=== PATIENT | male | born 1930 | race Caucasian/White ===

== ENCOUNTER 2019-03-29 00:29 | Inpatient (IN) | payer OTHER ==
--- NOTE | 2019-03-29 00:35 | PDOC ---
History of Present Illness - General Chief Complaint: Urinary Problem Stated Complaint: URINARY EVALUATION/PLACEMENT OF DOYLE Time Seen by Provider: 03/29/19 00:31 - History of Present Illness Initial Comments: 03/29/19 01:20 This 89-year-old man with a history of DM, GERD, BPH, A. fib,s/p CVA sent by ambulance from [facility] for apparent urinary retention. Patient speaks mainly Gambian and is a poor historian. The patient appeared to endorse that he has abdominal pain but cannot provide any other history. 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 After hospitalization at [facility], patient was a resident of the [facility] until of this year when he was transferred back to [facility] with a urinary tract infection. The patient was found to have a kidney stone as well as UTI . He was treated there until 3 days ago when he was transferred to [facility] for care of decubitus wounds of his lower back. Medications as noted below Allergy: Penicillin (reportedly GI intolerance) Non-smoker/no daily alcohol use history Attending: Dr. Masterson Past History - Past Medical History Allergies/Adverse Reactions: Allergies Allergy/AdvReac Type Severity Reaction Status Date / Time Penicillins Allergy Mild Nausea Verified 03/29/19 14:13 Home Medications: Ambulatory Orders Acetaminophen [Tylenol .Extra-Strength -] 2 tab PO Q8H 03/29/19 Apixaban [Eliquis] 5 mg PO BID 03/29/19 Ascorbic Acid [Vitamin C] 250 mg PO DAILY 03/29/19 Digoxin [Lanoxin -] 0.125 mg PO DAILY 03/29/19 Famotidine [Pepcid] 20 mg PO DAILY 03/29/19 Insulin (LOG) Aspart [NovoLOG -] 0 units SQ TID 03/29/19 Metoprolol Succinate 25 mg PO DAILY 03/29/19 Tamsulosin HCl [Flomax] 0.4 mg PO DAILY 03/29/19 Anemia: No Asthma: No Cancer: No Cardiac Disorders: Yes (IRREGULAR HEARTBEAT) CVA: No COPD: No CHF: No (STRESS TEST 2011) Dementia: Yes Diabetes: No GI Disorders: Yes (GERD RECTAL BLEEDING) Disorders: Yes (BPH) HTN: Yes Hypercholesterolemia: No Liver Disease: No Seizures: No Thyroid Disease: No - Surgical History Abdominal Surgery: No Appendectomy: No Cardiac Surgery: No Cholecystectomy: No Lung Surgery: No Neurologic Surgery: Yes (PLATE PLACED ON RIGHT SIDE OF HEAD AFTER HEAD TRAUMA) Orthopedic Surgery: Yes (LEFT KNEE REPLACMENT 2010) - Psycho Social/Smoking Cessation Hx Smoking History: Never smoked Have you smoked in the past 12 months: No Hx Alcohol Use: Yes (RARE) Drug/Substance Use Hx: No Substance Use Type: Alcohol Hx Substance Use Treatment: No Review of Systems - Review of Systems Able to Perform ROS?: Yes Comments:: 12 point review of systems is negative except for what is noted in the history of present illness *Physical Exam - Physical Exam GENERAL: Elderly man, responsive, speaking mainly Gambian; appears moderately agitated HEAD: Normal with no signs of trauma. EYES: PERRLA, EOMI, sclera anicteric, conjunctiva clear. ENT: Ears normal, nares patent, oropharynx clear without exudates. Dry mucous membranes. NECK: Normal range of motion, supple without lymphadenopathy, JVD, or masses. LUNGS: Breath sounds equal, clear to auscultation bilaterally. No wheezes, and no crackles. HEART: Irregularly irregular rhythm; no murmurs/rubs/extra sounds appreciated ABDOMEN:. Hypoactive bowel sounds; lower abdominal distention with moderate tenderness EXTREMITIES: Normal range of motion, no edema. No clubbing or cyanosis. No erythema, or tenderness. NEUROLOGICAL: Cranial nerves II through XII grossly intact. decreased spontaneous movement of left arm and left leg. Gait not tested SKIN: Dressing intact over midline sacral wound (not examined) Twelve-lead electrocardiogram is performed: Atrial fibrillation 84 bpm; no acute ST or T wave abnormality seen. [place] is normal. ED Treatment Course - LABORATORY CBC & Chemistry Diagram: 03/30/19 07:25 03/30/19 07:25 Medical Decision Making - Medical Decision Making 03/29/19 02:05 Because of the patient's lower abdominal distention and tenderness, urinary catheter placed by nursing staff under sterile conditions. Approximately 1100 mL of cloudy noé urine obtained and sample sent for urinalysis/urinary culture Reexamination of the patient after placement of the urinary catheter and drainage of retained urine reveals persistent generalized moderate tenderness without rebound or involuntary guarding. Soon after placement of the urinary catheter and drainage of initial urine, subsequent urinary drainage appeared feculent. Because of the patient's persistent abdominal tenderness and apparent feculent urine, CBC, chemistry profile, blood culture and lactic acid level sent. Abdominal/pelvic CT planned Laboratory evaluation notable for white blood cell count of 15,300; INR 2.11; BUN 36/creatinine 2.9; lactic acid 2.9. Urinalysis positive for 1+LE, 62 WBC/ 12 RBCs/301 bacteria on microscopic analysis Noncontrast abdominal/pelvic CT ordered 03/29/19 04:12 Abdominal/pelvic CT without contrast Preliminary interpretation by Imaging on Callmild right hydronephrosis with 2 mm UVJ stone;multiple bladder stones; multiple bilateral parenchymal renal stones and mild bilateral renal scarring; moderate prostate enlargement Levaquin 500 mg IV started Because of patient's urinary tract infection and presence of right UVJ stone, patient requires admission for parenteral antibiotic treatment of complicated UTI and urologic consultation. 's patients are admitted by [facility]. 03/29/19 04:54 Case discussed with , admitting physician for [facility] service. Patient will be admitted to [facility] here at [facility]. Consultation for urology and infectious disease will be called Discharge - Discharge Information Problems reviewed: Yes Clinical Impression/Diagnosis: Complicated UTI (urinary tract infection) Condition: Guarded - Admission Yes - Follow up/Referral - Patient Discharge Instructions - Post Discharge Activity
[2019-03-29] MEDS ORDERED: ACETAMINOPHEN 1000 MG/100 ML VIAL (NON FORMULARY) IVPB ONE (01:24)
[2019-03-29] MEDS ORDERED: ACETAMINOPHEN INJECTION 100 ML IVPB ONE (01:26)
[2019-03-29 01:32] VITALS: BMI 21.9
[2019-03-29] MEDS ORDERED: SODIUM CHLORIDE 500 ML IV STA ×2 (01:59→04:20)
[2019-03-29 02:09] LABS: EPI CELLS 0.4 /HPF (0-5/HPF); HYALINE CASTS 9 /lpf (0-8); URINE APPEARANCE TURBID; URINE BACTERIA 301.5 /hpf (NEGATIVE); URINE BILIRUBIN NEGATIVE (NEGATIVE); URINE COLOR YELLOW; URINE GLUCOSE (UA) NEGATIVE (NEGATIVE); URINE KETONE NEGATIVE (NEGATIVE); URINE LEUK ESTERASE 1+ (NEGATIVE); URINE NITRITE NEGATIVE (NEGATIVE); URINE PROTEIN 1+ (NEGATIVE); URINE UROBILINOGEN 0.2 mg/dL (0.2-1.0); URINE WBC 62 /hpf (0-5)
[2019-03-29 02:11] LABS: URINE RBC 12.1 /hpf (0-4)
[2019-03-29 02:36] LABS: BASO % 0.4 % (0-2.0); EOS % 0.1 % (0-4.5); HEMATOCRIT 36.1 % (35.4-49); LYMPH % 5.2 % (8-40); MCH 31.3 pg (25.7-33.7); MCHC 33.2 g/dl (32.0-35.9); MEAN CELL VOLUME 94.3 fl (80-96); MEAN PLT VOLUME 9.7 fl (7.5-11.1); MONO % 6.7 % (3.8-10.2); NEUT % 87.6 % (42.8-82.8); PLATELET COUNT 314 K/MM3 (134-434); RBC 3.83 M/mm3 (4.00-5.60); RDW 15.3 % (11.9-15.9); WHITE BLOOD COUNT 15.3 K/mm3 (4.0-10.0)
[2019-03-29 02:54] LABS: ALBUMIN 2.8 g/dl (3.4-5.0); ALK PHOS 92 U/L (45-117); ANION GAP 11 MMOL/L (8-16); BILIRUBIN,TOTAL 0.9 mg/dL (0.2-1); BLOOD UREA NITROGEN 36.2 mg/dL (7-18); CALCIUM 9.6 mg/dL (8.5-10.1); CHLORIDE 101 mmol/L (98-107); CO2 26 mmol/L (21-32); CREATININE 2.9 mg/dL (0.55-1.3); GLUCOSE,RANDOM 130 mg/dL (74-106); POTASSIUM 4.4 mmol/L (3.5-5.1); SGOT/AST 36 U/L (15-37); SGPT/ALT 52 U/L (13-61); SODIUM 137 mmol/L (136-145); TOT PROT 7.3 g/dl (6.4-8.2)
[2019-03-29 02:59] LABS: INR 2.11 (0.83-1.09); PROTHROMBIN TIME (PATIENT) 25.1 SEC (9.7-13.0)
[2019-03-29 03:04] LABS: YEAST Several seen (NEGATIVE)
[2019-03-29] MEDS ORDERED: DIGOXIN 0.125 MG TABLET (FP) PO ONE (04:59)
[2019-03-29] MEDS ORDERED: TAMSULOSIN HCL 0.4 MG CAP PO ONE ×2 (05:01→15:20)
[2019-03-29] MEDS: SODIUM CHLORIDE 1,000 ML IV SCH (05:01)
[2019-03-29] MEDS ORDERED: INSULIN SLIDING SCALE (NOVOLOG) 1 VIAL SQ SCH ×2 (07:00→14:41)
[2019-03-29 07:57] LABS: ALBUMIN 2.2 g/dl (3.4-5.0); BILIRUBIN,TOTAL 0.8 mg/dL (0.2-1); BLOOD UREA NITROGEN 36.1 mg/dL (7-18); CREATININE 2.7 mg/dL (0.55-1.3); TOT PROT 5.9 g/dl (6.4-8.2)
[2019-03-29] MEDS ORDERED: MEROPENEM 1 GM in DEXTROSE 5%-WATER 100 ML IVPB ONE (08:00)
--- NOTE | 2019-03-29 08:48 | HP ---
CHIEF COMPLAINT: Urinary Retention HISTORY OF PRESENT ILLNESS: This 89-year-old man with a history of Demetia, DMII, GERD, BPH, A.fib, s/p CVA sent by ambulance from [facility] for apparent urinary retention. Patient speaks mainly Macanese and is a poor historian. The patient appeared to endorse that he has abdominal pain but cannot provide any other history. Patient's daughter, Waqas Mcneil stated that the patient had a CVA on August 13, 2018 3 weeks after his girlfriend of 13 years , with subsequent left hemiparesis. After an 8 week hospitalization at [facility], patient was a resident of the [facility] until of this year when he was transferred back to [facility] for a 2 week stay with a bladder infection with a kidney stone. He was then sent to [facility] for PT and wound care of decubitus wounds of his lower back. He was treated there for 4 days until his presentation to [place]. Daughter also states he has lost approx 45lbs since his CVA. H&P information obtained from chart and Waqas Mcneil (Daughter). ER course was notable for: (1) Urinary Retention-Toure Placed Approximately 1100 mL of cloudy noé urine obtained and sample sent for urinalysis/ urinary culture (2)Abdominal/pelvic CT without contrast [facility] with 2 mm UVJ stone;multiple bladder stones; multiple bilateral parenchymal renal stones and mild bilateral renal scarring; moderate prostate enlargement (3)Levaquin 500 mg IV started Recent Travel: Denies Patient usually would go to [place] to attend to his [employer] every year before CVA PAST MEDICAL HISTORY: Dementia CVA 08/13/18 DMII AFib PAST SURGICAL HISTORY: Unknown Social History: Smoking: Never Alcohol: Denies Drugs: Denies -Lives in his own home with a 24 hour aid next door to his brother. 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 - 24 years ago -Has 1 son, 2 daughters, and 9 grandchildren who are active in his care Allergies Penicillins Adverse Reaction (Mild, Verified 03/29/19 00:49) Nausea HOME MEDICATIONS: Home Medications Medication Instructions Recorded Acetaminophen [Tylenol 2 tab PO Q8H 03/29/19 .Extra-Strength -] Apixaban [Eliquis] 5 mg PO BID 03/29/19 Ascorbic Acid [Vitamin C] 250 mg PO DAILY 03/29/19 Digoxin [Lanoxin -] 0.125 mg PO DAILY 03/29/19 Famotidine [Pepcid] 20 mg PO DAILY 03/29/19 Insulin (LOG) Aspart [NovoLOG -] 0 units SQ TID 03/29/19 Metoprolol Succinate 25 mg PO DAILY 03/29/19 Tamsulosin HCl [Flomax] 0.4 mg PO DAILY 03/29/19 REVIEW OF SYSTEMS Unable to assess. Patient is verbal but when the language was used the quality tech stated he was slurring and was not making any since and she could not understand him. Patient appears to show no signs of distress. PHYSICAL EXAMINATION Vital Signs - 24 hr 03/29/19 03/29/19 03/29/19 01:06 04:15 04:41 Temperature 100 F H 98.5 F Pulse Rate 95 H Pulse Rate [ 84 Left] Respiratory 20 20 Rate Blood Pressure 131/82 Blood Pressure 94/55 L [Left] O2 Sat by Pulse 99 100 Oximetry (%) GENERAL: Elderly man, responsive, speaking mainly Macanese; appears moderately agitated HEAD: Normal with no signs of trauma. EYES: PERRLA, EOMI, sclera anicteric, conjunctiva clear. ENT: Ears normal, nares patent, oropharynx clear without exudates. Dry mucous membranes. NECK: Normal range of motion, supple without lymphadenopathy, JVD, or masses. LUNGS: Breath sounds equal, clear to auscultation bilaterally. No wheezes, and no crackles. HEART: Irregularly irregular rhythm; no murmurs/rubs/extra sounds appreciated ABDOMEN:. Hypoactive bowel sounds; lower abdominal distention with moderate tenderness EXTREMITIES: Normal range of motion, no edema. No clubbing or cyanosis. No erythema, or tenderness. NEUROLOGICAL: Cranial nerves II through XII grossly intact. decreased spontaneous movement of left arm and left leg. Gait not tested SKIN: Dressing intact over midline sacral wound (stage II) Laboratory Results - last 24 hr 03/29/19 03/29/19 03/29/19 01:35 01:35 01:35 WBC 15.3 H RBC 3.83 L Hgb 12.0 Hct 36.1 MCV 94.3 MCH 31.3 MCHC 33.2 RDW 15.3 Plt Count 314 MPV 9.7 Absolute Neuts (auto) 13.4 H Neutrophils % 87.6 H Lymphocytes % 5.2 L Monocytes % 6.7 Eosinophils % 0.1 Basophils % 0.4 Nucleated RBC % 0 PT with INR INR Sodium 137 Potassium 4.4 Chloride 101 Carbon Dioxide 26 Anion Gap 11 BUN 36.2 H Creatinine 2.9 H Est GFR (CKD-EPI)AfAm 21.55 Est GFR (CKD-EPI)NonAf 18.60 Random Glucose 130 H Lactic Acid Calcium 9.6 Phosphorus Total Bilirubin 0.9 AST 36 ALT 52 Alkaline Phosphatase 92 Creatine Kinase 17 L Troponin I < 0.02 Total Protein 7.3 Albumin 2.8 L Urine Color Yellow Urine Appearance Turbid Urine pH 6.0 Ur Specific [place] 1.011 Urine Protein 1+ H Urine Glucose (UA) Negative Urine Ketones Negative Urine Blood 3+ H Urine Nitrite Negative Urine Bilirubin Negative Urine Urobilinogen 0.2 Ur Leukocyte Esterase 1+ H Urine WBC (Auto) 62 Urine RBC (Auto) 12.1 Urine Casts (Auto) 9 U Epithel Cells (Auto) 0.4 Urine Bacteria (Auto) 301.5 Urine Yeast (Auto) Several seen 03/29/19 03/29/19 03/29/19 01:35 01:35 04:45 WBC RBC Hgb Hct MCV MCH MCHC RDW Plt Count MPV Absolute Neuts (auto) Neutrophils % Lymphocytes % Monocytes % Eosinophils % Basophils % Nucleated RBC % PT with INR 25.10 H INR 2.11 H Sodium Potassium Chloride Carbon Dioxide Anion Gap BUN Creatinine Est GFR (CKD-EPI)AfAm Est GFR (CKD-EPI)NonAf Random Glucose Lactic Acid 2.9 H* 1.2 Calcium Phosphorus Total Bilirubin AST ALT Alkaline Phosphatase Creatine Kinase Troponin I Total Protein Albumin Urine Color Urine Appearance Urine pH Ur Specific [place] Urine Protein Urine Glucose (UA) Urine Ketones Urine Blood Urine Nitrite Urine Bilirubin Urine Urobilinogen Ur Leukocyte Esterase Urine WBC (Auto) Urine RBC (Auto) Urine Casts (Auto) U Epithel Cells (Auto) Urine Bacteria (Auto) Urine Yeast (Auto) 03/29/19 06:00 WBC RBC Hgb Hct MCV MCH MCHC RDW Plt Count MPV Absolute Neuts (auto) Neutrophils % Lymphocytes % Monocytes % Eosinophils % Basophils % Nucleated RBC % PT with INR INR Sodium 138 Potassium 4.0 Chloride 103 Carbon Dioxide 27 Anion Gap 8 BUN 36.1 H Creatinine 2.7 H Est GFR (CKD-EPI)AfAm 23.50 Est GFR (CKD-EPI)NonAf 20.28 Random Glucose 123 H Lactic Acid Calcium 9.0 Phosphorus 4.0 Total Bilirubin 0.8 AST 34 ALT 43 Alkaline Phosphatase 75 Creatine Kinase Troponin I Total Protein 5.9 L Albumin 2.2 L Urine Color Urine Appearance Urine pH Ur Specific [place] Urine Protein Urine Glucose (UA) Urine Ketones Urine Blood Urine Nitrite Urine Bilirubin Urine Urobilinogen Ur Leukocyte Esterase Urine WBC (Auto) Urine RBC (Auto) Urine Casts (Auto) U Epithel Cells (Auto) Urine Bacteria (Auto) Urine Yeast (Auto) ASSESSMENT/PLAN: This 89-year-old man with a history of Demetia, DMII, GERD, BPH, A.fib, s/p CVA sent by ambulance from [facility] for apparent urinary retention and a UTI. UTI/Urinary Retention --Toure Placed --UA/UC- Pending --CXR-No acute pathology --Blood Culture-pending --Meropenem to treat empirically while awaiting Urine Culture --ID Following --Urology consulted --will monitor renal function BUN/CRE 36.1/2.7 Afib --cont hm dose Elliqis 2.5mg PO BID; Metoprolol Tartrate 12.5mg PO BID; Digoxin 0.125mg PO Daily Dementia --Not currently on any medication. 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 Full COde Visit type - Emergency Visit Emergency Visit: Yes ED Registration Date: 03/29/19 Care time: The patient presented to the Emergency Department on the above date and was hospitalized for further evaluation of their emergent condition. - New Patient This patient is new to me today: Yes Date on this admission: 04/03/19 - Critical Care Critical Care patient: No
[2019-03-29] MEDS ORDERED: DEXTROSE 5%-WATER 100 ML IVPB ONE ×2 (09:28→20:09)
[2019-03-29] MEDS ORDERED: MEROPENEM 1 GM VIAL (RESTRICTED TO ID) IVPB ONE (09:28)
[2019-03-29] MEDS: FAMOTIDINE 20 MG TABLET PO SCH (09:53)
[2019-03-29] MEDS ORDERED: APIXABAN 2.5 MG TABLET PO SCH (10:00)
[2019-03-29 10:22] LABS: MCHC 33.8 g/dl (32.0-35.9)
[2019-03-29 10:25] LABS: BASO % 0.4 % (0-2.0); EOS % 1.2 % (0-4.5); HEMATOCRIT 31.8 % (35.4-49); HEMOGLOBIN 10.7 GM/dl (11.7-16.9); LYMPH % 6.6 % (8-40); MCH 31.7 pg (25.7-33.7); MEAN CELL VOLUME 93.9 fl (80-96); MEAN PLT VOLUME 9.6 fl (7.5-11.1); MONO % 5.5 % (3.8-10.2); NEUT % 86.3 % (42.8-82.8); PLATELET COUNT 230 K/MM3 (134-434); RBC 3.39 M/mm3 (4.00-5.60); RDW 14.6 % (11.9-15.9); WHITE BLOOD COUNT 10.4 K/mm3 (4.0-10.8)
--- NOTE | 2019-03-29 12:55 | CON.ID ---
Consult - History of Present Illness History of Present Illness: 89 y.o. male with PMH of BPH, CVA with Lt hemiparesis, GERD, BPH, AFIB, and Sacral DU transferred from [place] to the ER for urinary retention and abdominal pain. He alert, weak and noted to have low grade fever of 100F and leukocytosis (wbc 15.3K), elevated lactic acid and with VIKKI. Morin catheter was inserted with urine output of 1100 cc. Reported to have had a recent UTI treated at the hospital until he was discharged to [facility]. Pt himself is not a reliable source of history. He is weak although alert, mainly Brazilian-speaking, and reported to be more confused (baseline mental status unclear). U/A was indicative of UTI and patient has been started on antibiotics. Currently he is alert but not answering all questions. No distress noted. 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 Cardio/Vascular: Yes: AFIB Gastrointestinal: Yes: GERD Renal/: Yes: BPH Endocrine: Yes: Diabetes Mellitus - Alcohol/Substance Use Hx Alcohol Use: Yes (RARE) - Smoking History Smoking history: Never smoked Have you smoked in the past 12 months: No Home Medications - Allergies Allergies/Adverse Reactions: Allergies Allergy/AdvReac Type Severity Reaction Status Date / Time Penicillins AdvReac Mild Nausea Verified 03/29/19 00:49 - Home Medications Home Medications: Ambulatory Orders Acetaminophen [Tylenol .Extra-Strength -] 2 tab PO Q8H 03/29/19 Apixaban [Eliquis] 5 mg PO BID 03/29/19 Ascorbic Acid [Vitamin C] 250 mg PO DAILY 03/29/19 Digoxin [Lanoxin -] 0.125 mg PO DAILY 03/29/19 Famotidine [Pepcid] 20 mg PO DAILY 03/29/19 Insulin (LOG) Aspart [NovoLOG -] 0 units SQ TID 03/29/19 Metoprolol Succinate 25 mg PO DAILY 03/29/19 Tamsulosin HCl [Flomax] 0.4 mg PO DAILY 03/29/19 Review of Systems Unable to obtain ROS, reason: Pt weak, not answering qu Physical Exam Vital Signs: Vital Signs Temperature 98.2 F 03/29/19 07:55 Pulse Rate 111 H 03/29/19 07:55 Respiratory Rate 03/29/19 07:55 Blood Pressure 101/67 03/29/19 07:55 O2 Sat by Pulse Oximetry (%) 98 03/29/19 09:00 Constitutional: Yes: No Distress, Calm Eyes: Yes: Conjunctiva Clear HENT: Yes: Atraumatic Neck: Yes: Supple Cardiovascular: Yes: Pulse Irregular Respiratory: Yes: CTA Bilaterally Gastrointestinal: Yes: Normal Bowel Sounds, Soft Renal/: Yes: Morin Present (dark, cloudy urine) Musculoskeletal: Yes: WNL Extremities: Yes: WNL Edema: No Integumentary: Yes: Pressure Ulcer (Stage II-III DU without drainage/fluctuance) Neurological: Yes: Alert, Weakness Labs: CBC, BMP 03/29/19 10:18 03/29/19 06:00 Laboratory Tests 03/29/19 03/29/19 03/29/19 01:35 01:35 01:35 WBC 15.3 H RBC 3.83 L Hgb 12.0 Hct 36.1 MCV 94.3 MCH 31.3 MCHC 33.2 RDW 15.3 Plt Count 314 MPV 9.7 Absolute Neuts (auto) 13.4 H Neutrophils % 87.6 H Lymphocytes % 5.2 L Monocytes % 6.7 Eosinophils % 0.1 Basophils % 0.4 Nucleated RBC % 0 PT with INR INR Sodium 137 Potassium 4.4 Chloride 101 Carbon Dioxide 26 Anion Gap 11 BUN 36.2 H Creatinine 2.9 H Est GFR (CKD-EPI)AfAm 21.55 Est GFR (CKD-EPI)NonAf 18.60 POC Glucometer Random Glucose 130 H Lactic Acid Calcium 9.6 Phosphorus Total Bilirubin 0.9 AST 36 ALT 52 Alkaline Phosphatase 92 Creatine Kinase 17 L Troponin I < 0.02 Total Protein 7.3 Albumin 2.8 L Urine Color Yellow Urine Appearance Turbid Urine pH 6.0 Ur Specific [place] 1.011 Urine Protein 1+ H Urine Glucose (UA) Negative Urine Ketones Negative Urine Blood 3+ H Urine Nitrite Negative Urine Bilirubin Negative Urine Urobilinogen 0.2 Ur Leukocyte Esterase 1+ H Urine WBC (Auto) 62 Urine RBC (Auto) 12.1 Urine Casts (Auto) 9 U Epithel Cells (Auto) 0.4 Urine Bacteria (Auto) 301.5 Urine Yeast (Auto) Several seen 03/29/19 03/29/19 03/29/19 01:35 01:35 04:45 WBC RBC Hgb Hct MCV MCH MCHC RDW Plt Count MPV Absolute Neuts (auto) Neutrophils % Lymphocytes % Monocytes % Eosinophils % Basophils % Nucleated RBC % PT with INR 25.10 H INR 2.11 H Sodium Potassium Chloride Carbon Dioxide Anion Gap BUN Creatinine Est GFR (CKD-EPI)AfAm Est GFR (CKD-EPI)NonAf POC Glucometer Random Glucose Lactic Acid 2.9 H* 1.2 Calcium Phosphorus Total Bilirubin AST ALT Alkaline Phosphatase Creatine Kinase Troponin I Total Protein Albumin Urine Color Urine Appearance Urine pH Ur Specific [place] Urine Protein Urine Glucose (UA) Urine Ketones Urine Blood Urine Nitrite Urine Bilirubin Urine Urobilinogen Ur Leukocyte Esterase Urine WBC (Auto) Urine RBC (Auto) Urine Casts (Auto) U Epithel Cells (Auto) Urine Bacteria (Auto) Urine Yeast (Auto) 03/29/19 03/29/19 03/29/19 06:00 10:18 12:00 WBC 10.4 RBC 3.39 L Hgb 10.7 L Hct 31.8 L MCV 93.9 MCH 31.7 MCHC 33.8 RDW 14.6 Plt Count 230 MPV 9.6 Absolute Neuts (auto) 9.0 Neutrophils % 86.3 H Lymphocytes % 6.6 L Monocytes % 5.5 Eosinophils % 1.2 Basophils % 0.4 Nucleated RBC % PT with INR INR Sodium 138 Potassium 4.0 Chloride 103 Carbon Dioxide 27 Anion Gap 8 BUN 36.1 H Creatinine 2.7 H Est GFR (CKD-EPI)AfAm 23.50 Est GFR (CKD-EPI)NonAf 20.28 POC Glucometer 105 Random Glucose 123 H Lactic Acid Calcium 9.0 Phosphorus 4.0 Total Bilirubin 0.8 AST 34 ALT 43 Alkaline Phosphatase 75 Creatine Kinase Troponin I Total Protein 5.9 L Albumin 2.2 L Urine Color Urine Appearance Urine pH Ur Specific [place] Urine Protein Urine Glucose (UA) Urine Ketones Urine Blood Urine Nitrite Urine Bilirubin Urine Urobilinogen Ur Leukocyte Esterase Urine WBC (Auto) Urine RBC (Auto) Urine Casts (Auto) U Epithel Cells (Auto) Urine Bacteria (Auto) Urine Yeast (Auto) Imaging - Results Cat Scan: Pending Problem List - Problems (1) Complicated UTI (urinary tract infection) Code(s): N39.0 - URINARY TRACT INFECTION, SITE NOT SPECIFIED Assessment/Plan 89 y.o. male with PMH of BPH, CVA with Lt hemiparesis, GERD, BPH, AFIB, and Sacral DU transferred from [place] to the ER for urinary retention and abdominal pain Complicated UTI Urinary retention Leukocytosis Fever VIKKI Lactic acidosis BPH DM AFIB Hx of CVA Sacral DU -- will continue Meropenem empirically for now -- follow up Urine and Blood culture results -- follow up CT A/P results -- wbc trending down, lactic acid normalized, currently afebrile -- monitor renal function, now with morin catheter -- frequent turning, wound care for sacral DU -- will follow Thank you
[2019-03-29] MEDS ORDERED: metoPROLOL SUCCINATE 25 MG TAB.SR.24H (FP) PO SCH (14:15)
[2019-03-29] MEDS ORDERED: TAMSULOSIN HCL 0.4 MG CAP PO SCH (14:15)
[2019-03-29] MEDS: DIGOXIN 0.125 MG TABLET (FP) PO SCH (14:58)
[2019-03-29] MEDS: METOPROLOL TARTRATE 25 MG TABLET (FP) PO SCH ×2 (14:58→21:30)
[2019-03-29] MEDS: INSULIN SLIDING SCALE (NOVOLOG) 1 VIAL SQ SCH ×2 (16:27→21:31)
--- NOTE | 2019-03-29 18:41 | EKG ---
Test Reason : Blood Pressure : / mmHG Vent. Rate : 084 BPM Atrial Rate : 071 BPM P-R Int : 000 ms QRS Dur : 100 ms QT Int : 354 ms P-R-T Axes : 000 -04 029 degrees QTc Int : 418 ms ATRIAL FIBRILLATION WITH A COMPETING JUNCTIONAL PACEMAKER ABNORMAL ECG NO PREVIOUS ECGS AVAILABLE Confirmed by PHOEBE OLIVO MD ([id number]) on 03/29/2019 6:41:25 PM Referred By: DR GONZALEZ Confirmed By:PHOEBE OLIVO MD
[2019-03-29] MEDS ORDERED: MEROPENEM 500 MG VIAL (RESTRICTED TO ID) IVPB ONE (20:09)
[2019-03-29] MEDS: SENNOSIDES 8.6MG TABLET (FP) PO SCH (21:30)
[2019-03-29] MEDS: MEROPENEM 500 MG in DEXTROSE 5%-WATER 100 ML IVPB SCH (21:30)
[2019-03-29] MEDS: APIXABAN 2.5 MG TABLET PO SCH (21:30)
[2019-03-30] MEDS: SODIUM CHLORIDE 1,000 ML IV SCH (05:00)
[2019-03-30] MEDS: INSULIN SLIDING SCALE (NOVOLOG) 1 VIAL SQ SCH ×4 (06:26→21:35)
[2019-03-30] MEDS ORDERED: TAMSULOSIN HCL 0.4 MG CAP PO SCH ×2 (08:30→14:15)
[2019-03-30 09:05] LABS: HEMATOCRIT 29.4 % (35.4-49); HEMOGLOBIN 10.1 GM/dl (11.7-16.9); MCHC 34.4 g/dl (32.0-35.9); MEAN CELL VOLUME 93.2 fl (80-96); MEAN PLT VOLUME 9.7 fl (7.5-11.1); PLATELET COUNT 236 K/MM3 (134-434); RBC 3.15 M/mm3 (4.00-5.60); RDW 14.1 % (11.9-15.9); WHITE BLOOD COUNT 8.3 K/mm3 (4.0-10.8)
[2019-03-30 09:18] LABS: CREATININE 1.8 mg/dl (0.55-1.3); MAGNESIUM 1.6 mg/dL (1.8-2.4); PHOSPHOROUS 3.4 mg/dl (2.5-4.9); POTASSIUM 3.5 mmol/L (3.5-5.1)
[2019-03-30] MEDS ORDERED: MEROPENEM 500 MG VIAL (RESTRICTED TO ID) IVPB ONE ×2 (09:35→21:02)
[2019-03-30] MEDS ORDERED: DEXTROSE 5%-WATER 100 ML IVPB ONE ×2 (09:35→21:03)
[2019-03-30] MEDS: APIXABAN 2.5 MG TABLET PO SCH ×2 (09:50→21:33)
[2019-03-30] MEDS: DIGOXIN 0.125 MG TABLET (FP) PO SCH (09:51)
[2019-03-30] MEDS: METOPROLOL TARTRATE 25 MG TABLET (FP) PO SCH ×2 (09:51→21:33)
[2019-03-30] MEDS: FAMOTIDINE 20 MG TABLET PO SCH (09:52)
[2019-03-30] MEDS: MEROPENEM 500 MG in DEXTROSE 5%-WATER 100 ML IVPB SCH ×2 (09:52→21:35)
[2019-03-30] MEDS ORDERED: APIXABAN 5 MG TABLET PO SCH (10:00)
[2019-03-30] MEDS ORDERED: MAGNESIUM SULF 50% (8.12 MEQ/2 ML-1 GM VIAL) IVPB ONE (11:13)
[2019-03-30] MEDS ORDERED: INSULIN (NOVOLOG) ASPART 100 UNITS/ML 10ML VIAL ONE (11:59)
[2019-03-30] MEDS ORDERED: MAGNESIUM SULFATE IN WATER 2 GM/50 ML IVPB IVPB ONE ×2 (12:00→14:00)
[2019-03-30] MEDS ORDERED: POTASSIUM CHLORIDE TABS 20 MEQ TABLET.ER (FP) PO ONE ×2 (12:00→14:00)
--- NOTE | 2019-03-30 12:26 | PN ---
Progress Note, Physician History of Present Illness: awake and alert still with confusion - Current Medication List Current Medications: Active Medications Acetaminophen (Tylenol -) 500 mg PO Q6H PRN PRN Reason: PAIN 1-3 Apixaban (Eliquis -) 2.5 mg PO BID [facility] Last Admin: 03/30/19 09:50 Dose: 2.5 mg Digoxin (Lanoxin -) 0.125 mg PO DAILY [facility] Last Admin: 03/30/19 09:51 Dose: 0.125 mg Famotidine (Pepcid -) 20 mg PO DAILY [facility] Last Admin: 03/30/19 09:52 Dose: 20 mg Sodium Chloride (Normal Saline -) 1,000 mls @ 75 mls/hr IV ASDIR [facility] Last Admin: 03/30/19 05:00 Dose: 75 mls/hr Meropenem 500 mg/ Dextrose 100 mls @ 200 mls/hr IVPB BID [facility] Last Admin: 03/30/19 09:52 Dose: 200 mls/hr Magnesium Sulfate (Magnesium Sulf 2 G/50 Ml Bag) 2 gm in 50 mls @ 50 mls/hr IVPB ONCE ONE Stop: 03/30/19 12:59 Insulin Aspart (Novolog Vial Sliding Scale -) 1 vial SQ ACHS [facility]; Protocol Last Admin: 03/30/19 06:26 Dose: Not Given Metoprolol Tartrate (Lopressor -) 12.5 mg PO BID [facility] Last Admin: 03/30/19 09:51 Dose: 12.5 mg Senna (Senna -) 2 tab PO HS [facility] Last Admin: 03/29/19 21:30 Dose: 2 tab Tamsulosin HCl (Flomax -) 0.4 mg PO DAILY@0830 [facility] Last Admin: 03/30/19 08:49 Dose: 0.4 mg - Objective Vital Signs: Vital Signs Temperature 98.8 F 03/30/19 10:00 Pulse Rate 74 03/30/19 10:00 Respiratory Rate 20 03/30/19 10:00 Blood Pressure 135/60 03/30/19 10:00 O2 Sat by Pulse Oximetry (%) 98 03/30/19 10:00 Constitutional: Yes: No Distress, Calm Cardiovascular: Yes: S1, S2 Respiratory: Yes: Regular, CTA Bilaterally Gastrointestinal: Yes: Normal Bowel Sounds, Soft Musculoskeletal: Yes: WNL Extremities: Yes: Other Neurological: Yes: Alert, Confusion, Other Psychiatric: Yes: Other Labs: CBC, BMP 03/30/19 07:25 03/30/19 07:25 INR, PTT INR 2.11 (0.83-1.09) H 03/29/19 01:35 Assessment/Plan ronelm List - Problems (1) Complicated UTI (urinary tract infection) Code(s): N39.0 - URINARY TRACT INFECTION, SITE NOT SPECIFIED Assessment/Plan 89 y.o. male with PMH of BPH, CVA with Lt hemiparesis, GERD, BPH, AFIB, and Sacral DU transferred from [place] to the ER for urinary retention and abdominal pain Complicated UTI Urinary retention Leukocytosis Fever VIKKI Lactic acidosis BPH DM AFIB Hx of CVA Sacral DU plan await for finalization of the cx rest continue current mgmt
[2019-03-30 13:11] LABS: CREATININE, URINE RANDOM 70.5 mg/dL
[2019-03-30] MEDS: ACETAMINOPHEN 500 MG TABLET (FP) PO PRN (21:33)
[2019-03-30] MEDS: TAMSULOSIN HCL 0.4 MG CAP PO SCH (21:34)
[2019-03-30] MEDS: SENNOSIDES 8.6MG TABLET (FP) PO SCH (21:34)
[2019-03-31] MEDS: SODIUM CHLORIDE 1,000 ML IV SCH (05:59)
[2019-03-31] MEDS: INSULIN SLIDING SCALE (NOVOLOG) 1 VIAL SQ SCH ×4 (06:00→21:43)
[2019-03-31 08:47] LABS: BASO % 0.3 % (0-2.0); EOS % 2.7 % (0-4.5); HEMATOCRIT 31.7 % (35.4-49); HEMOGLOBIN 10.7 GM/dl (11.7-16.9); LYMPH % 11.5 % (8-40); MCH 31.6 pg (25.7-33.7); MCHC 33.7 g/dl (32.0-35.9); MEAN CELL VOLUME 93.8 fl (80-96); MONO % 10.4 % (3.8-10.2); NEUT % 75.1 % (42.8-82.8); PLATELET COUNT 303 K/MM3 (134-434); RBC 3.38 M/mm3 (4.00-5.60); RDW 14.3 % (11.9-15.9); WHITE BLOOD COUNT 8.2 K/mm3 (4.0-10.8)
[2019-03-31 08:49] LABS: ALBUMIN 2.5 g/dl (3.4-5.0); BILIRUBIN,TOTAL 0.6 mg/dl (0.2-1); CALCIUM 8.6 mg/dl (8.5-10); CREATININE 2.4 mg/dl (0.55-1.3); MAGNESIUM 2.2 mg/dL (1.8-2.4); POTASSIUM 4.2 mmol/L (3.5-5.1); TOT PROT 6.1 g/dl (6.4-8.2)
--- NOTE | 2019-03-31 09:38 | PN ---
Progress Note, Physician Chief Complaint: Yesterday developed urinary retention due to improperly person Toure's catheter , CT abdomen showed is inconclusive for fistula. History of Present Illness: 89 y.o. male with PMH of BPH, CVA with Lt hemiparesis, GERD, BPH, AFIB, and Sacral DU transferred from [place] to the ER for urinary retention and abdominal pain - Current Medication List Current Medications: Active Medications Acetaminophen (Tylenol -) 500 mg PO Q6H PRN PRN Reason: PAIN 1-3 Last Admin: 03/30/19 21:33 Dose: 500 mg Apixaban (Eliquis -) 2.5 mg PO BID [facility] Last Admin: 03/30/19 21:33 Dose: 2.5 mg Digoxin (Lanoxin -) 0.125 mg PO DAILY [facility] Last Admin: 03/30/19 09:51 Dose: 0.125 mg Famotidine (Pepcid -) 20 mg PO DAILY [facility] Last Admin: 03/30/19 09:52 Dose: 20 mg Sodium Chloride (Normal Saline -) 1,000 mls @ 75 mls/hr IV ASDIR [facility] Last Admin: 03/31/19 05:59 Dose: 75 mls/hr Meropenem 500 mg/ Dextrose 100 mls @ 200 mls/hr IVPB BID [facility] Last Admin: 03/30/19 21:35 Dose: 200 mls/hr Insulin Aspart (Novolog Vial Sliding Scale -) 1 vial SQ ACHS [facility]; Protocol Last Admin: 03/31/19 06:00 Dose: Not Given Metoprolol Tartrate (Lopressor -) 12.5 mg PO BID [facility] Last Admin: 03/30/19 21:33 Dose: 12.5 mg Senna (Senna -) 2 tab PO HS [facility] Last Admin: 03/30/19 21:34 Dose: 2 tab Tamsulosin HCl (Flomax -) 0.4 mg PO BID [facility] Last Admin: 03/30/19 21:34 Dose: 0.4 mg - Objective Vital Signs: Vital Signs Temperature 97.8 F 03/31/19 03:00 Pulse Rate 77 03/31/19 03:00 Respiratory Rate 20 03/31/19 03:00 Blood Pressure 152/85 03/31/19 03:00 O2 Sat by Pulse Oximetry (%) 100 03/31/19 08:22 Elderly M Sleeping HEENT: Mm moist, no anemia, PERRLA EOMI NECK: No JVd No Bruit CHEST: CTA B/L CVS; SS2 R no m/g/r ABD: No distention, non tender BS + EXT: No edema a feet BEE PRODUCER: No Interval changes Hemipresis Labs: CBC, BMP 03/31/19 07:20 03/31/19 07:20 INR, PTT INR 2.11 (0.83-1.09) H 03/29/19 01:35 Problem List - Problems (1) UTI (urinary tract infection) Assessment/Plan: Urine culture grew enterococci, on IV antibiotic as per ID recommendations continue same. Problems reviewed: Yes Code(s): N39.0 - URINARY TRACT INFECTION, SITE NOT SPECIFIED (2) HTN (hypertension) Assessment/Plan: Well-controlled on current regimen Problems reviewed: Yes Code(s): I10 - ESSENTIAL (PRIMARY) HYPERTENSION (3) Afib Assessment/Plan: rate controlled on apaxiban Problems reviewed: Yes Code(s): I48.91 - UNSPECIFIED ATRIAL FIBRILLATION (4) Diabetes Assessment/Plan: on correction dose insulin continue same. Problems reviewed: Yes Code(s): E11.9 - TYPE 2 DIABETES MELLITUS WITHOUT COMPLICATIONS Qualifiers: Diabetes mellitus type: type 2 (5) Dementia Assessment/Plan: Chronic Problems reviewed: Yes Code(s): F03.90 - UNSPECIFIED DEMENTIA WITHOUT BEHAVIORAL DISTURBANCE Assessment/Plan Cont current management F/U CT abd result
[2019-03-31] MEDS: TAMSULOSIN HCL 0.4 MG CAP PO SCH ×2 (09:51→21:37)
[2019-03-31] MEDS: FAMOTIDINE 20 MG TABLET PO SCH (09:51)
[2019-03-31] MEDS: APIXABAN 2.5 MG TABLET PO SCH ×2 (09:51→21:36)
[2019-03-31] MEDS: DIGOXIN 0.125 MG TABLET (FP) PO SCH (09:51)
[2019-03-31] MEDS: METOPROLOL TARTRATE 25 MG TABLET (FP) PO SCH ×2 (09:52→21:43)
[2019-03-31] MEDS: MEROPENEM 500 MG in DEXTROSE 5%-WATER 100 ML IVPB SCH (09:54)
--- NOTE | 2019-03-31 12:56 | PN ---
Progress Note, Physician History of Present Illness: stable no new issues plan for ct scan - Current Medication List Current Medications: Active Medications Acetaminophen (Tylenol -) 500 mg PO Q6H PRN PRN Reason: PAIN 1-3 Last Admin: 03/30/19 21:33 Dose: 500 mg Apixaban (Eliquis -) 2.5 mg PO BID [facility] Last Admin: 03/31/19 09:51 Dose: 2.5 mg Digoxin (Lanoxin -) 0.125 mg PO DAILY [facility] Last Admin: 03/31/19 09:51 Dose: 0.125 mg Famotidine (Pepcid -) 20 mg PO DAILY [facility] Last Admin: 03/31/19 09:51 Dose: 20 mg Sodium Chloride (Normal Saline -) 1,000 mls @ 75 mls/hr IV ASDIR [facility] Last Admin: 03/31/19 05:59 Dose: 75 mls/hr Meropenem 500 mg/ Dextrose 100 mls @ 200 mls/hr IVPB BID [facility] Last Admin: 03/31/19 09:54 Dose: 200 mls/hr Insulin Aspart (Novolog Vial Sliding Scale -) 1 vial SQ [facility]; Protocol Last Admin: 03/31/19 06:00 Dose: Not Given Metoprolol Tartrate (Lopressor -) 12.5 mg PO BID [facility] Last Admin: 03/31/19 09:52 Dose: 12.5 mg Senna (Senna -) 2 tab PO HS [facility] Last Admin: 03/30/19 21:34 Dose: 2 tab Tamsulosin HCl (Flomax -) 0.4 mg PO BID [facility] Last Admin: 03/31/19 09:51 Dose: 0.4 mg - Objective Vital Signs: Vital Signs Temperature 97.4 F L 03/31/19 10:06 Pulse Rate 108 H 03/31/19 10:06 Respiratory Rate 20 03/31/19 10:06 Blood Pressure 129/51 L 03/31/19 10:06 O2 Sat by Pulse Oximetry (%) 100 03/31/19 08:22 Constitutional: Yes: No Distress, Calm HENT: Yes: Atraumatic Cardiovascular: Yes: S1, S2 Respiratory: Yes: Regular, CTA Bilaterally Gastrointestinal: Yes: Normal Bowel Sounds, Soft Genitourinary: Yes: Toure Present Musculoskeletal: Yes: WNL Extremities: Yes: WNL Neurological: Yes: Alert, Other Psychiatric: Yes: Other Labs: CBC, BMP 03/31/19 07:20 03/31/19 07:20 INR, PTT INR 2.11 (0.83-1.09) H 03/29/19 01:35 Assessment/Plan roblem List - Problems (1) Complicated UTI (urinary tract infection) Code(s): N39.0 - URINARY TRACT INFECTION, SITE NOT SPECIFIED Assessment/Plan 89 y.o. male with PMH of BPH, CVA with Lt hemiparesis, GERD, BPH, AFIB, and Sacral DU transferred from CT to the ER for urinary retention and abdominal pain Complicated UTI Urinary retention Leukocytosis Fever VIKKI Lactic acidosis BPH DM AFIB Hx of CVA Sacral DU plan cx results noted will start patient on vanco will give one dose will stop aldo
[2019-03-31] MEDS ORDERED: VANCOMYCIN HCL 1,250 MG in SODIUM CHLORIDE 250 ML IVPB ONE (13:15)
[2019-03-31] MEDS: SENNOSIDES 8.6MG TABLET (FP) PO SCH (21:50)
[2019-04-01] MEDS: ACETAMINOPHEN 500 MG TABLET (FP) PO PRN (02:28)
[2019-04-01] MEDS: INSULIN SLIDING SCALE (NOVOLOG) 1 VIAL SQ SCH ×4 (07:09→21:32)
[2019-04-01] MEDS: METOPROLOL TARTRATE 25 MG TABLET (FP) PO SCH ×2 (10:15→21:26)
[2019-04-01] MEDS: TAMSULOSIN HCL 0.4 MG CAP PO SCH ×2 (10:15→21:25)
[2019-04-01] MEDS: APIXABAN 2.5 MG TABLET PO SCH ×2 (10:15→21:32)
[2019-04-01] MEDS: FAMOTIDINE 20 MG TABLET PO SCH (10:20)
[2019-04-01 10:27] LABS: BASO % 0.7 % (0-2.0); EOS % 1.1 % (0-4.5); HEMATOCRIT 30.3 % (35.4-49); HEMOGLOBIN 10.1 GM/dL (11.7-16.9); LYMPH % 10.5 % (8-40); MCH 31.1 pg (25.7-33.7); MCHC 33.3 g/dl (32.0-35.9); MEAN CELL VOLUME 93.3 fl (80-96); MEAN PLT VOLUME 8.6 fl (7.5-11.1); MONO % 10.7 % (3.8-10.2); PLATELET COUNT 273 K/MM3 (134-434); RBC 3.25 M/mm3 (4.00-5.60); WHITE BLOOD COUNT 9.7 K/mm3 (4.0-10.0)
[2019-04-01] MEDS: DIGOXIN 0.125 MG TABLET (FP) PO SCH (10:46)
[2019-04-01 11:25] LABS: BLOOD UREA NITROGEN 40.3 mg/dL (7-18); CALCIUM 8.3 mg/dL (8.5-10.1); CREATININE 2.8 mg/dL (0.55-1.3)
[2019-04-01 12:01] LABS: ANISOCYTOSIS 0; MACROCYTOSIS 0; PLATELET ESTIMATE NORMAL
--- NOTE | 2019-04-01 12:47 | PN ---
Progress Note, Physician Chief Complaint: Yesterday developed urinary retention due to improperly person Toure's catheter , CT abdomen showed is inconclusive for fistula. History of Present Illness: 89 y.o. male with PMH of BPH, CVA with Lt hemiparesis, GERD, BPH, AFIB, and Sacral DU transferred from [place] to the ER for urinary retention and abdominal pain - Current Medication List Current Medications: Active Medications Acetaminophen (Tylenol -) 500 mg PO Q6H PRN PRN Reason: PAIN 1-3 Last Admin: 04/01/19 02:28 Dose: 500 mg Apixaban (Eliquis -) 2.5 mg PO BID [facility] Last Admin: 04/01/19 10:15 Dose: 2.5 mg Digoxin (Lanoxin -) 0.125 mg PO DAILY [facility] Last Admin: 04/01/19 10:46 Dose: 0.125 mg Famotidine (Pepcid -) 20 mg PO DAILY [facility] Last Admin: 04/01/19 10:20 Dose: 20 mg Sodium Chloride (Normal Saline -) 1,000 mls @ 75 mls/hr IV ASDIR [facility] Last Admin: 03/31/19 05:59 Dose: 75 mls/hr Insulin Aspart (Novolog Vial Sliding Scale -) [address] [facility]; Protocol Last Admin: 04/01/19 07:09 Dose: Not Given Metoprolol Tartrate (Lopressor -) 12.5 mg PO BID [facility] Last Admin: 04/01/19 10:15 Dose: 12.5 mg Senna (Senna -) 2 tab PO HS [facility] Last Admin: 03/31/19 21:50 Dose: 2 tab Tamsulosin HCl (Flomax -) 0.4 mg PO BID [facility] Last Admin: 04/01/19 10:15 Dose: 0.4 mg - Objective Vital Signs: Vital Signs Temperature 98.0 F 04/01/19 10:00 Pulse Rate 78 04/01/19 10:46 Respiratory Rate 18 04/01/19 10:00 Blood Pressure 119/62 04/01/19 10:00 O2 Sat by Pulse Oximetry (%) 100 04/01/19 06:00 Elderly M Sleeping HEENT: Mm moist, no anemia, PERRLA EOMI NECK: No JVd No Bruit CHEST: CTA B/L CVS; SS2 R no m/g/r ABD: No distention, non tender BS + EXT: No edema a feet ONBOARDING SPECIALIST: No Interval changes Hemipresis Labs: CBC, BMP 04/01/19 06:00 04/01/19 06:00 INR, PTT INR 2.11 (0.83-1.09) H 03/29/19 01:35 Problem List - Problems (1) UTI (urinary tract infection) Assessment/Plan: Urine culture grew enterococci, on IV antibiotic as per ID recommendations continue same. Code(s): N39.0 - URINARY TRACT INFECTION, SITE NOT SPECIFIED (2) HTN (hypertension) Assessment/Plan: Well-controlled on current regimen Code(s): I10 - ESSENTIAL (PRIMARY) HYPERTENSION (3) Afib Assessment/Plan: rate controlled on apaxiban Code(s): I48.91 - UNSPECIFIED ATRIAL FIBRILLATION (4) Diabetes Assessment/Plan: on correction dose insulin continue same. Code(s): E11.9 - TYPE 2 DIABETES MELLITUS WITHOUT COMPLICATIONS Qualifiers: Diabetes mellitus type: type 2 (5) Dementia Assessment/Plan: Chronic Code(s): F03.90 - UNSPECIFIED DEMENTIA WITHOUT BEHAVIORAL DISTURBANCE (6) Obstructive uropathy Assessment/Plan: Due to urinary retention, continue Toure follow-up serial BMP. Problems reviewed: Yes Code(s): N13.9 - OBSTRUCTIVE AND REFLUX UROPATHY, UNSPECIFIED
[2019-04-01] MEDS: SENNOSIDES 8.6MG TABLET (FP) PO SCH (21:27)
[2019-04-02] MEDS: INSULIN SLIDING SCALE (NOVOLOG) 1 VIAL SQ SCH ×4 (06:56→22:52)
[2019-04-02 08:00] LABS: BASO % 0.3 % (0-2.0); EOS % 4.2 % (0-4.5); HEMOGLOBIN 9.6 GM/dl (11.7-16.9); LYMPH % 18.3 % (8-40); MCH 30.9 pg (25.7-33.7); MEAN CELL VOLUME 93.8 fl (80-96); MEAN PLT VOLUME 7.9 fl (7.5-11.1); MONO % 12.3 % (3.8-10.2); NEUT % 64.9 % (42.8-82.8); PLATELET COUNT 284 K/MM3 (134-434); RDW 14.2 % (11.9-15.9); WHITE BLOOD COUNT 7.4 K/mm3 (4.0-10.8)
[2019-04-02 08:13] LABS: CALCIUM 8.4 mg/dl (8.5-10); CREATININE 1.4 mg/dl (0.55-1.3); POTASSIUM 3.1 mmol/L (3.5-5.1)
[2019-04-02 08:20] LABS: CHOLESTEROL 137 mg/dl (50-200); HDL CHOLESTEROL 16 mg/dl (40-60); LDL CHOLESTEROL (ONLY DFH) 100 mg/dl (5-100); TRIGLYCERIDES 104 mg/dl (0-150)
[2019-04-02] MEDS: METOPROLOL TARTRATE 25 MG TABLET (FP) PO SCH ×2 (09:32→22:10)
[2019-04-02] MEDS: FAMOTIDINE 20 MG TABLET PO SCH (09:32)
[2019-04-02] MEDS: TAMSULOSIN HCL 0.4 MG CAP PO SCH ×2 (09:32→22:09)
[2019-04-02] MEDS: DIGOXIN 0.125 MG TABLET (FP) PO SCH (09:32)
[2019-04-02] MEDS: APIXABAN 2.5 MG TABLET PO SCH ×2 (09:32→22:09)
--- NOTE | 2019-04-02 12:53 | PN ---
Progress Note, Physician History of Present Illness: stable improving alert - Current Medication List Current Medications: Active Medications Acetaminophen (Tylenol -) 500 mg PO Q6H PRN PRN Reason: PAIN 1-3 Last Admin: 04/01/19 02:28 Dose: 500 mg Apixaban (Eliquis -) 2.5 mg PO BID [facility] Last Admin: 04/02/19 09:32 Dose: 2.5 mg Digoxin (Lanoxin -) 0.125 mg PO DAILY [facility] Last Admin: 04/02/19 09:32 Dose: 0.125 mg Famotidine (Pepcid -) 20 mg PO DAILY [facility] Last Admin: 04/02/19 09:32 Dose: 20 mg Sodium Chloride (Normal Saline -) 1,000 mls @ 75 mls/hr IV ASDIR [facility] Last Admin: 03/31/19 05:59 Dose: 75 mls/hr Insulin Aspart (Novolog Vial Sliding Scale -) 1 vial SQ [facility]; Protocol Last Admin: 04/02/19 11:42 Dose: Not Given Metoprolol Tartrate (Lopressor -) 12.5 mg PO BID [facility] Last Admin: 04/02/19 09:32 Dose: 12.5 mg Senna (Senna -) 2 tab PO HS [facility] Last Admin: 04/01/19 21:27 Dose: 2 tab Tamsulosin HCl (Flomax -) 0.4 mg PO BID [facility] Last Admin: 04/02/19 09:32 Dose: 0.4 mg - Objective Vital Signs: Vital Signs Temperature 98.0 F 04/02/19 10:00 Pulse Rate 74 04/02/19 10:00 Respiratory Rate 17 04/02/19 10:00 Blood Pressure 119/57 L 04/02/19 10:00 O2 Sat by Pulse Oximetry (%) 99 04/02/19 10:00 Constitutional: Yes: No Distress, Calm Cardiovascular: Yes: S1, S2 Respiratory: Yes: Regular, CTA Bilaterally Gastrointestinal: Yes: Normal Bowel Sounds, Soft Genitourinary: Yes: Toure Present Musculoskeletal: Yes: WNL Extremities: Yes: WNL Neurological: Yes: Alert, Other Psychiatric: Yes: Other Labs: CBC, BMP 04/02/19 07:45 04/02/19 07:45 INR, PTT INR 2.11 (0.83-1.09) H 12/22/19 01:35 Assessment/Plan roblem List - Problems (1) Complicated UTI (urinary tract infection) Code(s): N39.0 - URINARY TRACT INFECTION, SITE NOT SPECIFIED Assessment/Plan 89 y.o. male with PMH of BPH, CVA with Lt hemiparesis, GERD, BPH, AFIB, and Sacral DU transferred from [place] to the ER for urinary retention and abdominal pain Complicated UTI Urinary retention Leukocytosis Fever VIKKI Lactic acidosis BPH DM AFIB Hx of CVA Sacral DU plan cx results noted continue vanco
[2019-04-02] MEDS: VANCOMYCIN 1 GRAM (PRE-DOCKED) 1,000 MG/250 ML BAG IVPB SCH (13:28)
--- NOTE | 2019-04-02 15:46 | PN ---
Physical Exam: SUBJECTIVE: Patient seen and examined OBJECTIVE: Vital Signs Period Temp Pulse Resp BP Sys/Aguilera Pulse Ox Last 24 Hr 97.5 F-98.1 F 60-103 17-20 119-147/47-94 95-100 GENERAL: A&Ox1. Confused. Thin, frail, cachectic. LUNGS:CTA HEART: Irregular, S1, S2 ABDOMEN: Soft, nontender, nondistended; morin catheter, clear yellow urine EXTREMITIES: 2+ pulses, warm, well-perfused, no edema. NEUROLOGICAL: LUE and LLE flaccid paralysis SKIN: Stage I sacral pressure ulcer; Stage II sacral pressure ulcer present on admission Laboratory Results - last 24 hr 04/01/19 04/01/19 04/02/19 16:07 21:29 06:39 WBC RBC Hgb Hct MCV MCH MCHC RDW Plt Count MPV Absolute Neuts (auto) Neutrophils % Lymphocytes % Monocytes % Eosinophils % Basophils % Sodium Potassium Chloride Carbon Dioxide Anion Gap BUN Creatinine Est GFR (CKD-EPI)AfAm Est GFR (CKD-EPI)NonAf POC Glucometer 110 101 88 Random Glucose Calcium Triglycerides Cholesterol Total LDL Cholesterol HDL Cholesterol 04/02/19 04/02/19 04/02/19 07:45 07:45 07:45 WBC 7.4 RBC 3.10 L Hgb 9.6 L Hct 29.0 L MCV 93.8 MCH 30.9 MCHC 33.0 RDW 14.2 Plt Count 284 MPV 7.9 D Absolute Neuts (auto) 4.8 Neutrophils % 64.9 Lymphocytes % 18.3 D Monocytes % 12.3 H Eosinophils % 4.2 Basophils % 0.3 Sodium 139 Potassium 3.1 L Chloride 110 H Carbon Dioxide 21 Anion Gap 8 BUN 28.0 H Creatinine 1.4 H Est GFR (CKD-EPI)AfAm 51.99 Est GFR (CKD-EPI)NonAf 44.86 POC Glucometer Random Glucose 118 H Calcium 8.4 L Triglycerides 104 Cholesterol 137 Total LDL Cholesterol 100 HDL Cholesterol 16 L 04/02/19 11:39 WBC RBC Hgb Hct MCV MCH MCHC RDW Plt Count MPV Absolute Neuts (auto) Neutrophils % Lymphocytes % Monocytes % Eosinophils % Basophils % Sodium Potassium Chloride Carbon Dioxide Anion Gap BUN Creatinine Est GFR (CKD-EPI)AfAm Est GFR (CKD-EPI)NonAf POC Glucometer 134 Random Glucose Calcium Triglycerides Cholesterol Total LDL Cholesterol HDL Cholesterol Active Medications Generic Name Dose Route Start Last Admin Trade Name Freq PRN Reason Stop Dose Admin Acetaminophen 500 mg 03/29/19 14:37 04/01/19 02:28 Tylenol - PO 500 mg Q6H PRN Administration PAIN 1-3 Apixaban 2.5 mg 03/29/19 22:00 04/02/19 09:32 Eliquis - PO 2.5 mg BID [facility] Administration Digoxin 0.125 mg 03/29/19 14:15 04/02/19 09:32 Lanoxin - PO 0.125 mg DAILY [facility] Administration Famotidine 20 mg 03/29/19 10:00 04/02/19 09:32 Pepcid - PO 20 mg DAILY [facility] Administration Sodium Chloride 1,000 mls @ 75 mls/hr 03/29/19 05:00 03/31/19 05:59 Normal Saline - IV 75 mls/hr ASDIR [facility] Administration Vancomycin HCl 1,000 mg in 250 mls @ 200 mls/hr 04/02/19 13:00 04/02/19 13:28 Vancomycin (Pre-Docked) IVPB 200 mls/hr Q24H [facility] Administration Protocol Insulin Aspart 1 vial 03/29/19 16:30 04/02/19 11:42 Novolog Vial Sliding Scale - SQ Not Given ACHS [facility] Protocol Metoprolol Tartrate 12.5 mg 03/29/19 14:40 04/02/19 09:32 Lopressor - PO 12.5 mg BID [facility] Administration Senna 2 tab 03/29/19 22:00 04/01/19 21:27 Senna - PO 2 tab HS [facility] Administration Tamsulosin HCl 0.4 mg 03/30/19 22:00 04/02/19 09:32 Flomax - PO 0.4 mg BID [facility] Administration ASSESSMENT/PLAN: This 89-year-old man with a history of Demetia, DMII, GERD, BPH, A.fib, s/p CVA sent by ambulance from [facility] for apparent urinary retention and a UTI. UTI/Urinary Retention --Morin in place-Clear yellow urine --UA/UC-Urine culture grew enterococci, on IV Vanco as per ID Dr. Scruggs --Blood Culture-pending prelim yeast --CXR-No acute pathology --Urology consulted- Dr. Dakota Styles will see patient as outpatient --renal function trending down BUN/CRE 28/1.4, will monitor Afib --cont hm dose Elliqis 2.5mg PO BID; Metoprolol Tartrate 12.5mg PO BID; Digoxin 0.125mg PO Daily Dementia --Not currently on any medication. Daughter states some days he is with it and some day are he is not DMII --Sliding Scale --FSBS monitoring BPH --Cont hm dose Flomax 0.4mg daily at 0830 Stage II Pressure Ulcer on Lower Back --Allevyo in place GERD --Cont hm Dose pepcid 20mg PO Daily Hypokalemia --K+3.1 --Potassium 40meq PO once --Potassium 10meq IV x 3 bags --cmp and mg in the am FEN --NS @75ml/hr --replace PRN --Diabetic diet/Renal Diet supplement with Nephro Drink DVT Prophylaxis --On Elliqis Dispo --Continues to require inpatient. Full COde Visit type - Emergency Visit Emergency Visit: Yes ED Registration Date: 03/29/19 Care time: The patient presented to the Emergency Department on the above date and was hospitalized for further evaluation of their emergent condition. - New Patient This patient is new to me today: No - Critical Care Critical Care patient: No - Discharge Referral Referred to [facility] Med P.C.: No
[2019-04-02] MEDS ORDERED: POTASSIUM CHLORIDE ORAL LIQUID 20 MEQ/15 ML PO ONE (19:10)
[2019-04-02] MEDS ORDERED: POTASSIUM CHLORIDE TABS 20 MEQ TABLET.ER (FP) PO ONE (21:05)
[2019-04-02] MEDS: SENNOSIDES 8.6MG TABLET (FP) PO SCH (22:09)
[2019-04-03] MEDS: KCL 10 MEQ IVPB 10 MEQ/100 ML INFUS.BAG IVPB SCH ×3 (00:13→02:56)
[2019-04-03] MEDS: INSULIN SLIDING SCALE (NOVOLOG) 1 VIAL SQ SCH ×4 (06:33→22:43)
[2019-04-03] MEDS: SODIUM CHLORIDE 1,000 ML IV SCH (06:33)
[2019-04-03 08:32] LABS: BASO % 0.3 % (0-2.0); EOS % 4.6 % (0-4.5); HEMATOCRIT 27.7 % (35.4-49); HEMOGLOBIN 9.2 GM/dl (11.7-16.9); LYMPH % 20.3 % (8-40); MCHC 33.2 g/dl (32.0-35.9); MEAN CELL VOLUME 93.4 fl (80-96); MEAN PLT VOLUME 7.6 fl (7.5-11.1); NEUT % 63.8 % (42.8-82.8); PLATELET COUNT 314 K/MM3 (134-434); RBC 2.97 M/mm3 (4.00-5.60); RDW 14.3 % (11.9-15.9); WHITE BLOOD COUNT 7.4 K/mm3 (4.0-10.8)
[2019-04-03 08:44] LABS: ALBUMIN 1.9 g/dl (3.4-5.0); BILIRUBIN,TOTAL 0.6 mg/dl (0.2-1); CALCIUM 8.1 mg/dl (8.5-10); CREATININE 0.8 mg/dl (0.55-1.3); MAGNESIUM 1.4 mg/dL (1.8-2.4); POTASSIUM 3.1 mmol/L (3.5-5.1); TOT PROT 4.8 g/dl (6.4-8.2)
[2019-04-03] MEDS: FAMOTIDINE 20 MG TABLET PO SCH (10:05)
[2019-04-03] MEDS: APIXABAN 2.5 MG TABLET PO SCH ×2 (10:26→21:14)
[2019-04-03] MEDS: TAMSULOSIN HCL 0.4 MG CAP PO SCH ×2 (10:26→21:14)
[2019-04-03] MEDS: DIGOXIN 0.125 MG TABLET (FP) PO SCH (10:33)
[2019-04-03] MEDS: METOPROLOL TARTRATE 25 MG TABLET (FP) PO SCH ×2 (10:38→21:14)
[2019-04-03 11:09] LABS: CALCIUM 8.2 mg/dl (8.5-10); CREATININE 0.9 mg/dl (0.55-1.3)
[2019-04-03] MEDS ORDERED: MAGNESIUM SULF 50% (8.12 MEQ/2 ML-1 GM VIAL) IVPB ONE (12:08)
[2019-04-03] MEDS ORDERED: POTASSIUM CHLORIDE TABS 20 MEQ TABLET.ER (FP) PO SCH (12:15)
[2019-04-03] MEDS ORDERED: MAGNESIUM SULFATE IN WATER 2 GM/50 ML IVPB IVPB ONE (12:15)
[2019-04-03] MEDS: VANCOMYCIN 1 GRAM (PRE-DOCKED) 1,000 MG/250 ML BAG IVPB SCH (13:40)
--- NOTE | 2019-04-03 15:17 | PN ---
Physical Exam: SUBJECTIVE: Patient seen and examined OBJECTIVE: Vital Signs Period Temp Pulse Resp BP Sys/Aguilera Pulse Ox Last 24 Hr 97.6 F-97.8 F 61-72 16-19 117-177/52-93 95-99 GENERAL: A&Ox1. Confused. Thin, frail, cachectic. LUNGS:CTA HEART: Irregular, S1, S2 ABDOMEN: Soft, nontender, nondistended; morin catheter, clear yellow urine EXTREMITIES: 2+ pulses, warm, well-perfused, no edema. NEUROLOGICAL: LUE and LLE flaccid paralysis SKIN: Stage II sacral pressure ulcer present on admission Laboratory Results - last 24 hr 04/02/19 04/02/19 04/03/19 16:16 22:16 06:30 WBC RBC Hgb Hct MCV MCH MCHC RDW Plt Count MPV Absolute Neuts (auto) Neutrophils % Lymphocytes % Monocytes % Eosinophils % Basophils % Sodium Potassium Chloride Carbon Dioxide Anion Gap BUN Creatinine Est GFR (CKD-EPI)AfAm Est GFR (CKD-EPI)NonAf POC Glucometer 125 105 92 Random Glucose Calcium Magnesium Total Bilirubin AST ALT Alkaline Phosphatase Total Protein Albumin 04/03/19 04/03/19 04/03/19 08:05 08:05 10:45 WBC 7.4 RBC 2.97 L Hgb 9.2 L Hct 27.7 L MCV 93.4 MCH 31.0 MCHC 33.2 RDW 14.3 Plt Count 314 MPV 7.6 Absolute Neuts (auto) 4.8 Neutrophils % 63.8 Lymphocytes % 20.3 Monocytes % 11.0 H Eosinophils % 4.6 H Basophils % 0.3 Sodium 142 140 Potassium 3.1 L 3.0 L Chloride 113 H 110 H Carbon Dioxide 23 25 Anion Gap 6 L 5 L BUN 18.0 18.0 Creatinine 0.8 0.9 Est GFR (CKD-EPI)AfAm 93.09 88.69 Est GFR (CKD-EPI)NonAf 80.32 76.52 POC Glucometer Random Glucose 101 129 H Calcium 8.1 L 8.2 L Magnesium 1.4 L Total Bilirubin 0.6 AST 24 ALT 22 Alkaline Phosphatase 46 D Total Protein 4.8 L Albumin 1.9 L Active Medications Generic Name Dose Route Start Last Admin Trade Name Freq PRN Reason Stop Dose Admin Acetaminophen 500 mg 03/29/19 14:37 04/01/19 02:28 Tylenol - PO 500 mg Q6H PRN Administration PAIN 1-3 Apixaban 2.5 mg 03/29/19 22:00 04/03/19 10:26 Eliquis - PO 2.5 mg BID [facility] Administration Digoxin 0.125 mg 03/29/19 14:15 04/03/19 10:33 Lanoxin - PO 0.125 mg DAILY [facility] Administration Famotidine 20 mg 03/29/19 10:00 04/02/19 09:32 Pepcid - PO 20 mg DAILY [facility] Administration Sodium Chloride 1,000 mls @ 75 mls/hr 03/29/19 05:00 04/03/19 06:33 Normal Saline - IV 75 mls/hr ASDIR [facility] Administration Vancomycin HCl 1,000 mg in 250 mls @ 200 mls/hr 04/02/19 13:00 04/02/19 13:28 Vancomycin (Pre-Docked) IVPB 200 mls/hr Q24H [facility] Administration Protocol Insulin Aspart 1 vial 03/29/19 16:30 04/03/19 06:33 Novolog Vial Sliding Scale - SQ Not Given ACHS [facility] Protocol Metoprolol Tartrate 12.5 mg 03/29/19 14:40 04/03/19 10:38 Lopressor - PO 12.5 mg BID [facility] Administration Potassium Chloride 40 meq 04/03/19 12:15 K-Dur - PO DAILY [facility] Senna 2 tab 03/29/19 22:00 04/02/19 22:09 Senna - PO 2 tab HS [facility] Administration Tamsulosin HCl 0.4 mg 03/30/19 22:00 04/03/19 10:26 Flomax - PO 0.4 mg BID [facility] Administration ASSESSMENT/PLAN: This 89-year-old man with a history of Demetia, DMII, GERD, BPH, A.fib, s/p CVA sent by ambulance from [facility] for apparent urinary retention and a UTI. UTI/Urinary Retention --Morin in place-Clear yellow urine --UA/UC-Urine culture grew enterococci, on IV Vanco as per ID Dr. Scruggs --Blood Culture- Yeast. Awaiting final identification, likely Fungal. Will receive one time dose of Diflucan per Dr. Scruggs --CXR-No acute pathology --CT of ABD and Pelvis W & W/O contrast to R/O abscess/fistula --Bun 18, Creat 0.9 --Urology consulted- Dr. Dakota Styles will see patient as outpatient Afib --cont hm dose Elliqis 2.5mg PO BID; Metoprolol Tartrate 12.5mg PO BID; Digoxin 0.125mg PO Daily Dementia --Not currently on any medication. Daughter states some days he is with it and some day are he is not DMII --Sliding Scale --FSBS monitoring BPH --Cont hm dose Flomax 0.4mg daily at 0830 Stage II Pressure Ulcer on Lower Back --Allevyo in place GERD --Cont hm Dose pepcid 20mg PO Daily Hypokalemia/Hypomagnesimia --K+3.0 --Mg 1.4 --Potassium 40meq PO once --MagSulfate 2gm IVPB --Recheck labs K+ 3.4- Give 40 meq KCL PO once- Check AM labs Mg 2.0 FEN --NS @75ml/hr --replace PRN --Diabetic diet/Renal Diet supplement with Nephro Drink DVT Prophylaxis --On Elliqis Dispo --Continues to require inpatient. Full Code --Family will need advanced notice of pt's discharge in order to inform the 24 hour nurse aid and to call for an ambulance to transport him home. Visit type - Emergency Visit Emergency Visit: Yes ED Registration Date: 03/29/19 Care time: The patient presented to the Emergency Department on the above date and was hospitalized for further evaluation of their emergent condition. - New Patient This patient is new to me today: No - Critical Care Critical Care patient: No - Discharge Referral Referred to [facility] Med [facility] No
--- NOTE | 2019-04-03 15:56 | PN ---
Progress Note, Physician History of Present Illness: stable no new issues - Current Medication List Current Medications: Active Medications Acetaminophen (Tylenol -) 500 mg PO Q6H PRN PRN Reason: PAIN 1-3 Last Admin: 04/01/19 02:28 Dose: 500 mg Apixaban (Eliquis -) 2.5 mg PO BID [facility] Last Admin: 04/03/19 10:26 Dose: 2.5 mg Digoxin (Lanoxin -) 0.125 mg PO DAILY [facility] Last Admin: 04/03/19 10:33 Dose: 0.125 mg Famotidine (Pepcid -) 20 mg PO DAILY [facility] Last Admin: 04/02/19 09:32 Dose: 20 mg Sodium Chloride (Normal Saline -) 1,000 mls @ 75 mls/hr IV ASDIR [facility] Last Admin: 04/03/19 06:33 Dose: 75 mls/hr Vancomycin HCl (Vancomycin (Pre-Docked)) 1,000 mg in 250 mls @ 200 mls/hr IVPB Q24H [facility]; Protocol Last Admin: 04/02/19 13:28 Dose: 200 mls/hr Insulin Aspart (Novolog Vial Sliding Scale -) 1 vial SQ ACHS [facility]; Protocol Last Admin: 04/03/19 06:33 Dose: Not Given Metoprolol Tartrate (Lopressor -) 12.5 mg PO BID [facility] Last Admin: 04/03/19 10:38 Dose: 12.5 mg Potassium Chloride (K-Dur -) 40 meq PO ONCE ONE Stop: 04/03/19 18:01 Senna (Senna -) 2 tab PO HS [facility] Last Admin: 04/02/19 22:09 Dose: 2 tab Tamsulosin HCl (Flomax -) 0.4 mg PO BID [facility] Last Admin: 04/03/19 10:26 Dose: 0.4 mg - Objective Vital Signs: Vital Signs Temperature 97.7 F 04/03/19 14:16 Pulse Rate 61 04/03/19 14:16 Respiratory Rate 17 04/03/19 14:16 Blood Pressure 117/52 L 04/03/19 14:16 O2 Sat by Pulse Oximetry (%) 95 04/03/19 14:16 Constitutional: Yes: No Distress, Calm Cardiovascular: Yes: S1, S2 Genitourinary: Yes: Toure Present Musculoskeletal: Yes: WNL Extremities: Yes: WNL Neurological: Yes: Alert Psychiatric: Yes: Other Labs: CBC, BMP 04/03/19 08:05 04/03/19 15:05 INR, PTT INR 2.11 (0.83-1.09) H 03/29/19 01:35 Assessment/Plan roblem List - Problems (1) Complicated UTI (urinary tract infection) Code(s): N39.0 - URINARY TRACT INFECTION, SITE NOT SPECIFIED Assessment/Plan 89 y.o. male with PMH of BPH, CVA with Lt hemiparesis, GERD, BPH, AFIB, and Sacral DU transferred from [place] to the ER for urinary retention and abdominal pain Complicated UTI Urinary retention Leukocytosis Fever VIKKI Lactic acidosis BPH DM AFIB Hx of CVA Sacral DU plan cx results noted await for imaging studies
[2019-04-03] MEDS ORDERED: FLUCONAZOLE 200 MG/NS 100 ML IVPB ONE (16:04)
[2019-04-03] MEDS ORDERED: POTASSIUM CHLORIDE TABS 20 MEQ TABLET.ER (FP) PO ONE (18:00)
[2019-04-03] MEDS: SENNOSIDES 8.6MG TABLET (FP) PO SCH (21:14)
[2019-04-04] MEDS ORDERED: LORazepam 2 MG/ML SDV VIAL IM ONE (00:14)
[2019-04-04] MEDS: INSULIN SLIDING SCALE (NOVOLOG) 1 VIAL SQ SCH ×3 (06:27→22:09)
--- NOTE | 2019-04-04 08:39 | PN ---
Physical Exam: SUBJECTIVE: Patient seen and examined, pt remains confused,no complains. OBJECTIVE: Vital Signs Period Temp Pulse Resp BP Sys/Aguilera Pulse Ox Last 24 Hr 97.6 F-97.9 F 61-79 17-20 117-150/52-69 95-100 GENERAL: The patient is awake, alert, but disoriented and fully oriented, in no acute distress. HEAD: Normal with no signs of trauma. EYES: PERRL, extraocular movements intact, sclera anicteric, conjunctiva clear. No ptosis. ENT: Ears normal, nares patent, oropharynx clear without exudates, moist mucous membranes. NECK: Trachea midline, full range of motion, supple. LUNGS: Breath sounds equal, clear to auscultation bilaterally, no wheezes, no crackles, no accessory muscle use. HEART: Regular rate and rhythm, S1, S2 without murmur, rub or gallop. ABDOMEN: Soft, nontender, nondistended, normoactive bowel sounds, no guarding, no rebound, no hepatosplenomegaly, no masses. EXTREMITIES: 2+ pulses, warm, well-perfused, no edema. NEUROLOGICAL: Cranial nerves II through XII grossly intact. Normal speech, gait not observed. PSYCH: Normal mood, normal affect. SKIN: Warm, dry, normal turgor, Stage III sacral pressure ulcer present on admission : Toure draining yellow urine Laboratory Results - last 24 hr 04/03/19 04/03/19 04/03/19 08:05 08:05 10:45 WBC 7.4 RBC 2.97 L Hgb 9.2 L Hct 27.7 L MCV 93.4 MCH 31.0 MCHC 33.2 RDW 14.3 Plt Count 314 MPV 7.6 Absolute Neuts (auto) 4.8 Neutrophils % 63.8 Lymphocytes % 20.3 Monocytes % 11.0 H Eosinophils % 4.6 H Basophils % 0.3 Sodium 142 140 Potassium 3.1 L 3.0 L Chloride 113 H 110 H Carbon Dioxide 23 25 Anion Gap 6 L 5 L BUN 18.0 18.0 Creatinine 0.8 0.9 Est GFR (CKD-EPI)AfAm 93.09 88.69 Est GFR (CKD-EPI)NonAf 80.32 76.52 POC Glucometer Random Glucose 101 129 H Calcium 8.1 L 8.2 L Magnesium 1.4 L Total Bilirubin 0.6 AST 24 ALT 22 Alkaline Phosphatase 46 D Total Protein 4.8 L Albumin 1.9 L 04/03/19 04/03/19 04/03/19 15:05 15:05 21:48 WBC RBC Hgb Hct MCV MCH MCHC RDW Plt Count MPV Absolute Neuts (auto) Neutrophils % Lymphocytes % Monocytes % Eosinophils % Basophils % Sodium Potassium 3.4 L Chloride Carbon Dioxide Anion Gap BUN Creatinine Est GFR (CKD-EPI)AfAm Est GFR (CKD-EPI)NonAf POC Glucometer 130 Random Glucose Calcium Magnesium 2.0 Total Bilirubin AST ALT Alkaline Phosphatase Total Protein Albumin 04/04/19 05:47 WBC RBC Hgb Hct MCV MCH MCHC RDW Plt Count MPV Absolute Neuts (auto) Neutrophils % Lymphocytes % Monocytes % Eosinophils % Basophils % Sodium Potassium Chloride Carbon Dioxide Anion Gap BUN Creatinine Est GFR (CKD-EPI)AfAm Est GFR (CKD-EPI)NonAf POC Glucometer 92 Random Glucose Calcium Magnesium Total Bilirubin AST ALT Alkaline Phosphatase Total Protein Albumin Active Medications Generic Name Dose Route Start Last Admin Trade Name Freq PRN Reason Stop Dose Admin Acetaminophen 500 mg 03/29/19 14:37 04/01/19 02:28 Tylenol - PO 500 mg Q6H PRN Administration PAIN 1-3 Apixaban 2.5 mg 03/29/19 22:00 04/03/19 21:14 Eliquis - PO 2.5 mg BID SHAILA Administration Digoxin 0.125 mg 03/29/19 14:15 04/03/19 10:33 Lanoxin - PO 0.125 mg DAILY SHAILA Administration Famotidine 20 mg 03/29/19 10:00 04/03/19 10:05 Pepcid - PO 20 mg DAILY SHAILA Administration Sodium Chloride 1,000 mls @ 75 mls/hr 03/29/19 05:00 04/03/19 06:33 Normal Saline - IV 75 mls/hr ASDIR SHAILA Administration Vancomycin HCl 1,000 mg in 250 mls @ 200 mls/hr 04/02/19 13:00 04/03/19 13:40 Vancomycin (Pre-Docked) IVPB 200 mls/hr Q24H SHAILA Administration Protocol Insulin Aspart 1 vial 03/29/19 16:30 04/04/19 06:27 Novolog Vial Sliding Scale - SQ Not Given ACHS SHAILA Protocol Metoprolol Tartrate 12.5 mg 03/29/19 14:40 04/03/19 21:14 Lopressor - PO 12.5 mg BID SHAILA Administration Senna 2 tab 03/29/19 22:00 04/03/19 21:14 Senna - PO 2 tab HS SHAILA Administration Tamsulosin HCl 0.4 mg 03/30/19 22:00 04/03/19 21:14 Flomax - PO 0.4 mg BID SHAILA Administration \ Microbiology 04/02/19 15:38 Blood - Peripheral Venous Yeast/Fungus Identification - Preliminary 03/29/19 01:35 Blood - Peripheral Venous Blood Culture - Final Yeast Like Organism 03/29/19 01:35 Blood - Peripheral Venous Blood Culture - Final Yeast Like Organism 03/29/19 01:35 Urine - Urine Toure Urine Culture - Final Enterococcus Faecalis CT abdomen/ Pelvis: Bilateral samll pleural effusion, mild bilateral hydro and bilateral nonconstructive calculi ASSESSMENT/PLAN: This 89-year-old man with a history of Dementia, DMII, GERD, BPH, A.fib, s/p CVA sent by ambulance from [facility] for apparent urinary retention and a UTI. *UTI/Urinary Retention -Toure in place-Clear yellow urine -UA/UC-Urine culture grew enterococci, on IV Vanco as per ID Dr. Scruggs -Blood Culture- Yeast., added Diflucan by ID - Repeat BC ordered -CXR-No acute pathology CT of ABD and Pelvis W & W/O contrast to R/O abscess/fistula -Bun 18, Creat 0.9 -Urology consulted- Dr. Dakota Styles will see patient as outpatient - afebrile with no leukocytosis *Afib- HR controlled -cont home dose Elliqis 2.5mg PO BID; Metoprolol Tartrate 12.5mg PO BID; Digoxin 0.125mg PO Daily *Dementia -Not currently on any medication. *DMII -Sliding Scale -FS monitoring - diabetic diet *BPH -Cont home dose Flomax 0.4mg daily at 0830 *Stage II Pressure Ulcer on Lower Back -Allevyo in place *GERD -Cont home Dose pepcid 20mg PO Daily *Hypokalemia/Hypomagnesimia - replaced - will f/u on labs in AM FEN -replace electrolyes PRN --Diabetic diet/Renal Diet supplement with Nephro Drink DVT Prophylaxis --On Elliqis Dispo --Continues to require inpatient. Full Code --Family will need advanced notice of pt's discharge in order to inform the 24 hour nurse aid and to call for an ambulance to transport him home. Visit type - Emergency Visit Emergency Visit: Yes ED Registration Date: 03/29/19 Care time: The patient presented to the Emergency Department on the above date and was hospitalized for further evaluation of their emergent condition. - New Patient This patient is new to me today: Yes Date on this admission: 04/04/19 - Critical Care Critical Care patient: No
[2019-04-04 08:50] LABS: BASO % 0.5 % (0-2.0); EOS % 4.9 % (0-4.5); HEMATOCRIT 29.5 % (35.4-49); HEMOGLOBIN 9.9 GM/dl (11.7-16.9); LYMPH % 24.6 % (8-40); MCH 31.5 pg (25.7-33.7); MCHC 33.7 g/dl (32.0-35.9); MEAN CELL VOLUME 93.5 fl (80-96); MEAN PLT VOLUME 7.8 fl (7.5-11.1); MONO % 9.7 % (3.8-10.2); NEUT % 60.3 % (42.8-82.8); PLATELET COUNT 352 K/MM3 (134-434); RBC 3.15 M/mm3 (4.00-5.60); RDW 13.9 % (11.9-15.9)
[2019-04-04 09:04] LABS: ALBUMIN 2.3 g/dl (3.4-5.0); BILIRUBIN,TOTAL 0.8 mg/dl (0.2-1); CALCIUM 8.4 mg/dl (8.5-10); CREATININE 0.7 mg/dl (0.55-1.3); MAGNESIUM 1.6 mg/dL (1.8-2.4); POTASSIUM 3.3 mmol/L (3.5-5.1); TOT PROT 5.5 g/dl (6.4-8.2)
[2019-04-04] MEDS: TAMSULOSIN HCL 0.4 MG CAP PO SCH ×2 (09:56→22:10)
[2019-04-04] MEDS: DIGOXIN 0.125 MG TABLET (FP) PO SCH (09:56)
[2019-04-04] MEDS: APIXABAN 2.5 MG TABLET PO SCH ×2 (09:56→22:10)
[2019-04-04] MEDS: METOPROLOL TARTRATE 25 MG TABLET (FP) PO SCH ×2 (09:57→22:10)
[2019-04-04] MEDS: FAMOTIDINE 20 MG TABLET PO SCH (09:57)
[2019-04-04] MEDS ORDERED: MAGNESIUM SULF 50% (8.12 MEQ/2 ML-1 GM VIAL) IVPB ONE (11:12)
[2019-04-04] MEDS ORDERED: POTASSIUM CHLORIDE TABS 20 MEQ TABLET.ER (FP) PO ONE (11:12)
--- NOTE | 2019-04-04 12:17 | PN ---
Progress Note, Physician History of Present Illness: stable no new issues - Current Medication List Current Medications: Active Medications Acetaminophen (Tylenol -) 500 mg PO Q6H PRN PRN Reason: PAIN 1-3 Last Admin: 04/01/19 02:28 Dose: 500 mg Apixaban (Eliquis -) 2.5 mg PO BID [facility] Last Admin: 04/04/19 09:56 Dose: 2.5 mg Digoxin (Lanoxin -) 0.125 mg PO DAILY [facility] Last Admin: 04/04/19 09:56 Dose: 0.125 mg Famotidine (Pepcid -) 20 mg PO DAILY [facility] Last Admin: 04/04/19 09:57 Dose: 20 mg Vancomycin HCl (Vancomycin (Pre-Docked)) 1,000 mg in 250 mls @ 200 mls/hr IVPB Q24H [facility]; Protocol Last Admin: 04/03/19 13:40 Dose: 200 mls/hr Insulin Aspart (Novolog Vial Sliding Scale -) 1 vial SQ ACHS [facility]; Protocol Last Admin: 04/04/19 06:27 Dose: Not Given Magnesium Sulfate (Magnesium Sulfate) 1 gm IVPB ONCE ONE Stop: 04/04/19 11:13 Metoprolol Tartrate (Lopressor -) 12.5 mg PO BID [facility] Last Admin: 04/04/19 09:57 Dose: 12.5 mg Potassium Chloride (K-Dur -) 40 meq PO ONCE ONE Stop: 04/04/19 11:13 Senna (Senna -) 2 tab PO HS [facility] Last Admin: 04/03/19 21:14 Dose: 2 tab Tamsulosin HCl (Flomax -) 0.4 mg PO BID [facility] Last Admin: 04/04/19 09:56 Dose: 0.4 mg - Objective Vital Signs: Vital Signs Temperature 97.6 F 04/04/19 06:00 Pulse Rate 81 04/04/19 09:56 Respiratory Rate 19 04/04/19 09:00 Blood Pressure 150/68 04/04/19 06:00 O2 Sat by Pulse Oximetry (%) 99 04/04/19 09:00 Constitutional: Yes: No Distress, Calm Cardiovascular: Yes: S1, S2 Respiratory: Yes: Regular, CTA Bilaterally Gastrointestinal: Yes: Normal Bowel Sounds, Soft Genitourinary: Yes: Toure Present Musculoskeletal: Yes: WNL Extremities: Yes: Other Labs: CBC, BMP 04/04/19 07:42 04/04/19 07:42 INR, PTT INR 2.11 (0.83-1.09) H 03/29/19 01:35 Assessment/Plan roblem List - Problems (1) Complicated UTI (urinary tract infection) Code(s): N39.0 - URINARY TRACT INFECTION, SITE NOT SPECIFIED Assessment/Plan 89 y.o. male with PMH of BPH, CVA with Lt hemiparesis, GERD, BPH, AFIB, and Sacral DU transferred from [place] to the ER for urinary retention and abdominal pain Complicated UTI Urinary retention Leukocytosis Fever VIKKI Lactic acidosis BPH DM AFIB Hx of CVA Sacral DU plan cx results noted await for imaging studies will repeat blood cx rest as per the team
[2019-04-04] MEDS: VANCOMYCIN 1 GRAM (PRE-DOCKED) 1,000 MG/250 ML BAG IVPB SCH (13:30)
[2019-04-04] MEDS: FLUCONAZOLE 200 MG/D5W 100 ML IVPB SCH (13:30)
[2019-04-04] MEDS: SENNOSIDES 8.6MG TABLET (FP) PO SCH (22:10)
[2019-04-05] MEDS: INSULIN SLIDING SCALE (NOVOLOG) 1 VIAL SQ SCH ×4 (07:59→21:59)
[2019-04-05 09:37] LABS: CALCIUM 8.1 mg/dl (8.5-10); CREATININE 0.7 mg/dl (0.55-1.3); MAGNESIUM 1.7 mg/dL (1.8-2.4); POTASSIUM 3.9 mmol/L (3.5-5.1)
--- NOTE | 2019-04-05 11:09 | PN ---
Physical Exam: SUBJECTIVE: Patient seen and examined, asleep arousable to tactile stimuli. NAD Toure draining clear yellow urine. OBJECTIVE: Vital Signs Period Temp Pulse Resp BP Sys/Aguilera Pulse Ox Last 24 Hr 97.5 F-98.0 F 63-112 17-18 119-171/45-73 96-98 GENERAL: The patient is awake, alert, and fully oriented, in no acute distress. HEAD: Normal with no signs of trauma. EYES: PERRL, extraocular movements intact, sclera anicteric, conjunctiva clear. No ptosis. ENT: Ears normal, nares patent, oropharynx clear without exudates, moist mucous membranes. NECK: Trachea midline, full range of motion, supple. LUNGS: Breath sounds equal, clear to auscultation bilaterally, no wheezes, no crackles, no accessory muscle use. HEART: Regular rate and rhythm, S1, S2 without murmur, rub or gallop. ABDOMEN: Soft, nontender, nondistended, normoactive bowel sounds, no guarding, no rebound, no hepatosplenomegaly, no masses. EXTREMITIES: 2+ pulses, warm, well-perfused, no edema. NEUROLOGICAL: Cranial nerves II through XII grossly intact. Normal speech, gait not observed. PSYCH: Normal mood, normal affect. SKIN: Warm, dry, normal turgor, no rashes or lesions noted Laboratory Results - last 24 hr 04/04/19 04/05/19 04/05/19 22:05 07:00 07:19 Sodium 138 Potassium 3.9 Chloride 105 Carbon Dioxide 26 Anion Gap 7 L BUN 11.0 Creatinine 0.7 Est GFR (CKD-EPI)AfAm 98.34 Est GFR (CKD-EPI)NonAf 84.85 POC Glucometer 88 104 Random Glucose 102 Calcium 8.1 L Magnesium 1.7 L Active Medications Generic Name Dose Route Start Last Admin Trade Name Freq PRN Reason Stop Dose Admin Acetaminophen 500 mg 03/29/19 14:37 04/01/19 02:28 Tylenol - PO 500 mg Q6H PRN Administration PAIN 1-3 Apixaban 2.5 mg 03/29/19 22:00 04/04/19 22:10 Eliquis - PO 2.5 mg BID SHAILA Administration Digoxin 0.125 mg 03/29/19 14:15 04/04/19 09:56 Lanoxin - PO 0.125 mg DAILY SHAILA Administration Famotidine 20 mg 03/29/19 10:00 04/04/19 09:57 Pepcid - PO 20 mg DAILY SHAILA Administration Vancomycin HCl 1,000 mg in 250 mls @ 200 mls/hr 04/02/19 13:00 04/04/19 13:30 Vancomycin (Pre-Docked) IVPB 200 mls/hr Q24H SHAILA Administration Protocol Fluconazole 100 mls @ 100 mls/hr 04/04/19 12:30 04/04/19 13:30 Diflucan 200 Mg/D5w Premixed Ivpb - IVPB 100 mls/hr DAILY SHAILA Administration Insulin Aspart 1 vial 03/29/19 16:30 04/05/19 07:59 Novolog Vial Sliding Scale - SQ Not Given ACHS SHAILA Protocol Magnesium Oxide 400 mg 04/05/19 10:00 Mag-Ox - PO BID SHAILA Metoprolol Tartrate 12.5 mg 03/29/19 14:40 04/04/19 22:10 Lopressor - PO 12.5 mg BID SHAILA Administration Senna 2 tab 03/29/19 22:00 04/04/19 22:10 Senna - PO 2 tab HS SHAILA Administration Tamsulosin HCl 0.4 mg 03/30/19 22:00 04/04/19 22:10 Flomax - PO 0.4 mg BID SHAILA Administration ASSESSMENT/PLAN: This 89-year-old man with a history of Dementia, DMII, GERD, BPH, A.fib, s/p CVA sent by ambulance from [facility] [place] [place] for apparent urinary retention and a UTI. *UTI/Urinary Retention -Toure in place-Clear yellow urine -UA/UC-Urine culture grew enterococci, on IV Vanco as per ID Dr. Scruggs -Blood Culture- Yeast., added Diflucan by ID - Repeat BC pending -CT of ABD and Pelvis W & W/O contrast to R/O abscess/fistula -Urology consulted- Dr. Dakota Styles will see patient as outpatient *Afib- HR controlled -cont home dose Elliqis 2.5mg PO BID; Metoprolol Tartrate 12.5mg PO BID; Digoxin 0.125mg PO Daily *Dementia -Not currently on any medication. *DMII -Sliding Scale -FS monitoring - diabetic diet *BPH -c/w Flomax *Stage II Pressure Ulcer on Lower Back -Allevyne in place -T&P Q2 Hrs *GERD -Cont home Dose pepcid 20mg PO Daily *Hypokalemia/Hypomagnesimia -replete PRN -monitor daily FEN -replace electrolyes PRN --Diabetic diet/Renal Diet supplement with Nephro Drink DVT Prophylaxis --On Elliqis Dispo --Continues to require inpatient. Full Code --Family will need advanced notice of pt's discharge in order to inform the 24 hour nurse aid and to call for an ambulance to transport him home. Visit type - Emergency Visit Emergency Visit: Yes ED Registration Date: 03/29/19 Care time: The patient presented to the Emergency Department on the above date and was hospitalized for further evaluation of their emergent condition. - New Patient This patient is new to me today: Yes Date on this admission: 04/05/19 - Critical Care Critical Care patient: No
[2019-04-05] MEDS ORDERED: FLUCONAZOLE 200 MG/NS 100 ML IVPB SCH (11:35)
[2019-04-05] MEDS: APIXABAN 2.5 MG TABLET PO SCH ×2 (11:38→21:59)
[2019-04-05] MEDS: TAMSULOSIN HCL 0.4 MG CAP PO SCH ×2 (11:38→21:59)
[2019-04-05] MEDS: METOPROLOL TARTRATE 25 MG TABLET (FP) PO SCH ×2 (11:39→21:59)
[2019-04-05] MEDS: DIGOXIN 0.125 MG TABLET (FP) PO SCH (11:39)
[2019-04-05] MEDS: MAGNESIUM OXIDE 400 MG TABLET (FP) PO SCH ×2 (11:40→21:59)
[2019-04-05] MEDS: FAMOTIDINE 20 MG TABLET PO SCH (11:40)
[2019-04-05] MEDS: FLUCONAZOLE 200 MG/D5W 100 ML IVPB SCH (11:45)
[2019-04-05] MEDS: FLUCONAZOLE 200 MG/NS 100 ML IVPB SCH (11:47)
[2019-04-05] MEDS: VANCOMYCIN 1 GRAM (PRE-DOCKED) 1,000 MG/250 ML BAG IVPB SCH (13:28)
--- NOTE | 2019-04-05 15:56 | PN ---
Progress Note, Physician History of Present Illness: no new issues repeat blood cx negative - Current Medication List Current Medications: Active Medications Acetaminophen (Tylenol -) 500 mg PO Q6H PRN PRN Reason: PAIN 1-3 Last Admin: 04/01/19 02:28 Dose: 500 mg Apixaban (Eliquis -) 2.5 mg PO BID [facility] Last Admin: 04/05/19 11:38 Dose: 2.5 mg Digoxin (Lanoxin -) 0.125 mg PO DAILY [facility] Last Admin: 04/05/19 11:39 Dose: 0.125 mg Famotidine (Pepcid -) 20 mg PO DAILY [facility] Last Admin: 04/05/19 11:40 Dose: 20 mg Vancomycin HCl (Vancomycin (Pre-Docked)) 1,000 mg in 250 mls @ 200 mls/hr IVPB Q24H [facility]; Protocol Last Admin: 04/05/19 13:28 Dose: 200 mls/hr Fluconazole (Diflucan 200 Mg/Ns Premixed Ivpb -) 100 mls @ 100 mls/hr IVPB DAILY [facility] Last Admin: 04/05/19 11:47 Dose: 100 mls/hr Insulin Aspart (Novolog Vial Sliding Scale -) 1 vial SQ ACHS [facility]; Protocol Last Admin: 04/05/19 12:00 Dose: Not Given Magnesium Oxide (Mag-Ox -) 400 mg PO BID [facility] Last Admin: 04/05/19 11:40 Dose: 400 mg Metoprolol Tartrate (Lopressor -) 12.5 mg PO BID [facility] Last Admin: 04/05/19 11:39 Dose: 12.5 mg Senna (Senna -) 2 tab PO HS [facility] Last Admin: 04/04/19 22:10 Dose: 2 tab Tamsulosin HCl (Flomax -) 0.4 mg PO BID [facility] Last Admin: 04/05/19 11:38 Dose: 0.4 mg - Objective Vital Signs: Vital Signs Temperature 98.1 F 04/05/19 14:09 Pulse Rate 49 L 04/05/19 14:09 Respiratory Rate 16 04/05/19 14:09 Blood Pressure 147/53 L 04/05/19 14:09 O2 Sat by Pulse Oximetry (%) 95 04/05/19 14:09 Constitutional: Yes: No Distress, Calm Cardiovascular: Yes: S1, S2 Gastrointestinal: Yes: Normal Bowel Sounds, Soft Musculoskeletal: Yes: WNL Extremities: Yes: WNL Neurological: Yes: Alert, Other Labs: CBC, BMP 04/04/19 07:42 04/05/19 07:00 INR, PTT INR 2.11 (0.83-1.09) H 03/29/19 01:35 Assessment/Plan roblem List - Problems (1) Complicated UTI (urinary tract infection) Code(s): N39.0 - URINARY TRACT INFECTION, SITE NOT SPECIFIED Assessment/Plan 89 y.o. male with PMH of BPH, CVA with Lt hemiparesis, GERD, BPH, AFIB, and Sacral DU transferred from [place] to the ER for urinary retention and abdominal pain Complicated UTI Urinary retention Leukocytosis Fever VIKKI Lactic acidosis BPH DM AFIB Hx of CVA Sacral DU plan cx results noted continue current mgmt follow vanco trough rest as per the team
[2019-04-05] MEDS: SENNOSIDES 8.6MG TABLET (FP) PO SCH (21:59)
[2019-04-06 08:16] LABS: BASO % 0.6 % (0-2.0); EOS % 5.2 % (0-4.5); HEMATOCRIT 29.7 % (35.4-49); HEMOGLOBIN 9.6 GM/dl (11.7-16.9); LYMPH % 31.3 % (8-40); MCHC 32.4 g/dl (32.0-35.9); MEAN CELL VOLUME 92.6 fl (80-96); MEAN PLT VOLUME 7.5 fl (7.5-11.1); MONO % 8.2 % (3.8-10.2); NEUT % 54.7 % (42.8-82.8); PLATELET COUNT 374 K/MM3 (134-434); RDW 13.8 % (11.9-15.9); WHITE BLOOD COUNT 6.6 K/mm3 (4.0-10.8)
[2019-04-06 08:21] LABS: ALBUMIN 2.3 g/dl (3.4-5.0); BILIRUBIN,TOTAL 0.3 mg/dl (0.2-1); CALCIUM 8.3 mg/dl (8.5-10); CREATININE 0.6 mg/dl (0.55-1.3); MAGNESIUM 1.6 mg/dL (1.8-2.4); POTASSIUM 3.4 mmol/L (3.5-5.1); TOT PROT 5.7 g/dl (6.4-8.2)
[2019-04-06] MEDS: FLUCONAZOLE 200 MG/NS 100 ML IVPB SCH (09:05)
[2019-04-06] MEDS: APIXABAN 2.5 MG TABLET PO SCH ×2 (10:00→21:44)
[2019-04-06] MEDS: FAMOTIDINE 20 MG TABLET PO SCH (10:00)
[2019-04-06] MEDS: DIGOXIN 0.125 MG TABLET (FP) PO SCH (10:00)
[2019-04-06] MEDS: METOPROLOL TARTRATE 25 MG TABLET (FP) PO SCH ×2 (10:00→21:44)
[2019-04-06] MEDS: TAMSULOSIN HCL 0.4 MG CAP PO SCH ×2 (10:00→21:44)
[2019-04-06] MEDS ORDERED: MAGNESIUM SULF 50% (8.12 MEQ/2 ML-1 GM VIAL) IVPB ONE (10:00)
[2019-04-06] MEDS ORDERED: POTASSIUM CHLORIDE TABS 20 MEQ TABLET.ER (FP) PO ONE (10:00)
[2019-04-06] MEDS: INSULIN SLIDING SCALE (NOVOLOG) 1 VIAL SQ SCH ×3 (11:10→21:43)
[2019-04-06] MEDS: VANCOMYCIN 1 GRAM (PRE-DOCKED) 1,000 MG/250 ML BAG IVPB SCH (13:00)
--- NOTE | 2019-04-06 13:17 | PN ---
Progress Note, Physician History of Present Illness: patent stable no new issues - Current Medication List Current Medications: Active Medications Acetaminophen (Tylenol -) 500 mg PO Q6H PRN PRN Reason: PAIN 1-3 Last Admin: 04/01/19 02:28 Dose: 500 mg Apixaban (Eliquis -) 2.5 mg PO BID [facility] Last Admin: 04/05/19 21:59 Dose: 2.5 mg Digoxin (Lanoxin -) 0.125 mg PO DAILY [facility] Last Admin: 04/05/19 11:39 Dose: 0.125 mg Famotidine (Pepcid -) 20 mg PO DAILY [facility] Last Admin: 04/05/19 11:40 Dose: 20 mg Vancomycin HCl (Vancomycin (Pre-Docked)) 1,000 mg in 250 mls @ 200 mls/hr IVPB Q24H [facility]; Protocol Last Admin: 04/05/19 13:28 Dose: 200 mls/hr Fluconazole (Diflucan 200 Mg/Ns Premixed Ivpb -) 100 mls @ 100 mls/hr IVPB DAILY [facility] Last Admin: 04/05/19 11:47 Dose: 100 mls/hr Insulin Aspart (Novolog Vial Sliding Scale -) 1 vial SQ ACHS [facility]; Protocol Last Admin: 04/05/19 21:59 Dose: Not Given Metoprolol Tartrate (Lopressor -) 12.5 mg PO BID [facility] Last Admin: 04/05/19 21:59 Dose: 12.5 mg Senna (Senna -) 2 tab PO HS [facility] Last Admin: 04/05/19 21:59 Dose: Not Given Tamsulosin HCl (Flomax -) 0.4 mg PO BID [facility] Last Admin: 04/05/19 21:59 Dose: 0.4 mg - Objective Vital Signs: Vital Signs Temperature 97.4 F L 04/06/19 10:00 Pulse Rate 66 04/06/19 10:00 Respiratory Rate 18 04/06/19 10:00 Blood Pressure 118/83 04/06/19 10:00 O2 Sat by Pulse Oximetry (%) 100 04/06/19 10:00 Constitutional: Yes: No Distress, Calm Cardiovascular: Yes: S1, S2 Respiratory: Yes: Regular, CTA Bilaterally Gastrointestinal: Yes: Normal Bowel Sounds, Soft Musculoskeletal: Yes: WNL Extremities: Yes: WNL Neurological: Yes: Alert Psychiatric: Yes: Other Labs: CBC, BMP 12/30/19 07:22 04/06/19 07:22 INR, PTT INR 2.11 (0.83-1.09) H 03/29/19 01:35 Assessment/Plan roblem List - Problems (1) Complicated UTI (urinary tract infection) Code(s): N39.0 - URINARY TRACT INFECTION, SITE NOT SPECIFIED Assessment/Plan 89 y.o. male with PMH of BPH, CVA with Lt hemiparesis, GERD, BPH, AFIB, and Sacral DU transferred from [place] to the ER for urinary retention and abdominal pain Complicated UTI Urinary retention Leukocytosis Fever VIKKI Lactic acidosis BPH DM AFIB Hx of CVA Sacral DU plan continue current mgmt will need antfungal for 2 weeks
--- NOTE | 2019-04-06 16:30 | PN ---
Documentation entered by Soraida Phillips SCRIBE, acting as scribe for Radha Streeter NP. Physical Exam: SUBJECTIVE: Patient seen and examined at bedside. Denies pain. OBJECTIVE: Vital Signs Period Temp Pulse Resp BP Sys/Aguilera Pulse Ox Last 24 Hr 97.4 F-98.1 F 49-64 16-21 144-155/46-63 95-98 GENERAL: AA&O x1. Confused. No apparent distress. LUNGS: Clear to auscultation, anteriorly. HEART:HEART: Irregular, S1, S2 EXTREMITIES: 2+ pulses, warm, well-perfused, no edema. NEUROLOGICAL: Cranial nerves II through XII grossly intact. Normal speech, gait not observed. SKIN: Warm, dry, normal turgor Laboratory Results - last 24 hr 04/05/19 04/05/19 04/05/19 07:00 11:53 13:00 WBC RBC Hgb Hct MCV MCH MCHC RDW Plt Count MPV Absolute Neuts (auto) Neutrophils % Lymphocytes % Monocytes % Eosinophils % Basophils % Sodium 138 Potassium 3.9 Chloride 105 Carbon Dioxide 26 Anion Gap 7 L BUN 11.0 Creatinine 0.7 Est GFR (CKD-EPI)AfAm 98.34 Est GFR (CKD-EPI)NonAf 84.85 POC Glucometer 96 Random Glucose 102 Calcium 8.1 L Magnesium 1.7 L Total Bilirubin AST ALT Alkaline Phosphatase Total Protein Albumin Vancomycin Pre-Dose 10.9 L 04/05/19 04/05/19 04/06/19 16:45 21:18 06:42 WBC RBC Hgb Hct MCV MCH MCHC RDW Plt Count MPV Absolute Neuts (auto) Neutrophils % Lymphocytes % Monocytes % Eosinophils % Basophils % Sodium Potassium Chloride Carbon Dioxide Anion Gap BUN Creatinine Est GFR (CKD-EPI)AfAm Est GFR (CKD-EPI)NonAf POC Glucometer 131 144 96 Random Glucose Calcium Magnesium Total Bilirubin AST ALT Alkaline Phosphatase Total Protein Albumin Vancomycin Pre-Dose 04/06/19 04/06/19 07:22 07:22 WBC 6.6 RBC 3.20 L Hgb 9.6 L Hct 29.7 L MCV 92.6 MCH 30.0 MCHC 32.4 RDW 13.8 Plt Count 374 MPV 7.5 Absolute Neuts (auto) 3.7 Neutrophils % 54.7 Lymphocytes % 31.3 D Monocytes % 8.2 Eosinophils % 5.2 H Basophils % 0.6 Sodium 138 Potassium 3.4 L Chloride 104 Carbon Dioxide 27 Anion Gap 7 L BUN 11.0 Creatinine 0.6 Est GFR (CKD-EPI)AfAm 104.78 Est GFR (CKD-EPI)NonAf 90.40 POC Glucometer Random Glucose 106 Calcium 8.3 L Magnesium 1.6 L Total Bilirubin 0.3 AST 37 ALT 34 Alkaline Phosphatase 56 Total Protein 5.7 L Albumin 2.3 L Vancomycin Pre-Dose Active Medications Generic Name Dose Route Start Last Admin Trade Name Freq PRN Reason Stop Dose Admin Acetaminophen 500 mg 03/29/19 14:37 04/01/19 02:28 Tylenol - PO 500 mg Q6H PRN Administration PAIN 1-3 Apixaban 2.5 mg 03/29/19 22:00 04/05/19 21:59 Eliquis - PO 2.5 mg BID SHAILA Administration Digoxin 0.125 mg 03/29/19 14:15 04/05/19 11:39 Lanoxin - PO 0.125 mg DAILY SHAILA Administration Famotidine 20 mg 03/29/19 10:00 04/05/19 11:40 Pepcid - PO 20 mg DAILY [facility]AILA Administration Vancomycin HCl 1,000 mg in 250 mls @ 200 mls/hr 04/02/19 13:00 04/05/19 13:28 Vancomycin (Pre-Docked) IVPB 200 mls/hr Q24H SHAILA Administration Protocol Fluconazole 100 mls @ 100 mls/hr 04/05/19 11:45 04/05/19 11:47 Diflucan 200 Mg/Ns Premixed Ivpb - IVPB 100 mls/hr DAILY [facility] Administration Insulin Aspart 1 vial 03/29/19 16:30 04/05/19 21:59 Novolog Vial Sliding Scale - SQ Not Given ACHS [facility]A Protocol Magnesium Oxide 400 mg 04/05/19 10:00 04/05/19 21:59 Mag-Ox - PO 400 mg BID [facility]A Administration Metoprolol Tartrate 12.5 mg 03/29/19 14:40 04/05/19 21:59 Lopressor - PO 12.5 mg BID SHAILA Administration Senna 2 tab 03/29/19 22:00 04/05/19 21:59 Senna - PO Not Given HS SHAILA Tamsulosin HCl 0.4 mg 03/30/19 22:00 04/05/19 21:59 Flomax - PO 0.4 mg BID SHAILA Administration ASSESSMENT/PLAN: 89 year-old male with a PMH significant for atrial fibrillation on Eliquis, 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 Admitted for urinary retention. Stage III pressure ulcer on admission. Urinary retention BPH --morin dc'd today, voiding freely --CT with contrast: no evidence of colovesicular fistula --Dr. Irby called, he will see the patient in the outpatient setting --continue increased tamsulosin BID Enterococcus UTI --treated with meropenem x 4 days, vanc x 5 days; course complete Yeast bacteremia --03/29 blood cultures x 2 positive for yeast-like organism --04/02 sent to [facility] for further speciation --started IV fluconazole on 04/04, today is day #3; will need 2 more weeks of IV therapy --sent for PICC line today Acute kidney injury, resolved --Cr 2.9 on admission, 0.6 today Atrial fibrillation --continue metoprolol, dig for rate control --continue Eliquis CVA --right hemiplegia --stable Type II NIDDM --Novolog sliding scale coverage GERD --continue Pepcid Severe malnutrition --thin, frail, cachectic --45lb weight loss in 7 months --nutrition consult Dementia --not on medication --at baseline Hypomagnesemia Hypokalemia --repleted FEN Fluids: PO intake adequate Electrolytes: replete as indicated Nutrition: diabetic, chopped; Nepro BID; MVI; prosource DVT Prophylaxis --On [facility] Physical therapy Dispo --Continues to require inpatient. Full Code --Family will need advanced notice of pt's discharge in order to inform the 24 hour nurse aid and to call for an ambulance to transport him home. Visit type - Emergency Visit Emergency Visit: Yes ED Registration Date: 03/29/19 Care time: The patient presented to the Emergency Department on the above date and was hospitalized for further evaluation of their emergent condition. - New Patient This patient is new to me today: No - Critical Care Critical Care patient: No Radha Streeter NP: This documentation has been prepared by the Alan awan Maria, SCRIBE, under my direction and personally reviewed by me in its entirety. I confirm that the documentation accurately reflects all work, treatment, procedures, and medical decision making performed by me.
[2019-04-06] MEDS: AMINO ACIDS/PROTEIN HYDROLYS 30 ML LIQUID.PKT PO SCH (18:51)
[2019-04-06] MEDS: MULTIVITAMINS (DAILY MVI) TABLET (FP) PO SCH (18:51)
[2019-04-06] MEDS: SENNOSIDES 8.6MG TABLET (FP) PO SCH (21:44)
[2019-04-07] MEDS: ACETAMINOPHEN 500 MG TABLET (FP) PO PRN (02:12)
[2019-04-07] MEDS: INSULIN SLIDING SCALE (NOVOLOG) 1 VIAL SQ SCH (06:32)
[2019-04-07] MEDS: AMINO ACIDS/PROTEIN HYDROLYS 30 ML LIQUID.PKT PO SCH (08:00)
[2019-04-07] MEDS: APIXABAN 2.5 MG TABLET PO SCH (10:00)
[2019-04-07] MEDS: TAMSULOSIN HCL 0.4 MG CAP PO SCH (10:00)
[2019-04-07] MEDS: FLUCONAZOLE 200 MG/NS 100 ML IVPB SCH (10:00)
[2019-04-07] MEDS: DIGOXIN 0.125 MG TABLET (FP) PO SCH (10:00)
[2019-04-07] MEDS: MULTIVITAMINS (DAILY MVI) TABLET (FP) PO SCH (10:00)
[2019-04-07] MEDS: FAMOTIDINE 20 MG TABLET PO SCH (10:05)
[2019-04-07] MEDS: METOPROLOL TARTRATE 25 MG TABLET (FP) PO SCH (10:05)
[2019-04-07 14:32] VITALS: BP 149/53; PULSE 74; TEMP 97.8
--- NOTE | 2019-04-10 09:56 | DS ---
Documentation entered by Soraida Phillips SCRIBE, acting as scribe for Radha Streeter NP. Physical Exam: SUBJECTIVE: Patient seen and examined. OBJECTIVE: Vital Signs Period Temp Pulse Resp BP Sys/Aguilera Pulse Ox Last 24 Hr 97.4 F-98.3 F 52-100 18-20 118-163/43-83 99-100 PHYSICAL EXAM GENERAL: AA&O x1. Confused. No apparent distress. LUNGS: Clear to auscultation, anteriorly. HEART:HEART: Irregular, S1, S2 EXTREMITIES: 2+ pulses, warm, well-perfused, no edema. NEUROLOGICAL: Cranial nerves II through XII grossly intact. Normal speech, gait not observed. SKIN: Stage III sacral pressure ulcer with hardened slough. LABS Laboratory Results - last 24 hr 04/06/19 04/06/19 04/06/19 07:22 07:22 11:33 WBC 6.6 RBC 3.20 L Hgb 9.6 L Hct 29.7 L MCV 92.6 MCH 30.0 MCHC 32.4 RDW 13.8 Plt Count 374 MPV 7.5 Absolute Neuts (auto) 3.7 Neutrophils % 54.7 Lymphocytes % 31.3 D Monocytes % 8.2 Eosinophils % 5.2 H Basophils % 0.6 Sodium 138 Potassium 3.4 L Chloride 104 Carbon Dioxide 27 Anion Gap 7 L BUN 11.0 Creatinine 0.6 Est GFR (CKD-EPI)AfAm 104.78 Est GFR (CKD-EPI)NonAf 90.40 POC Glucometer 129 Random Glucose 106 Calcium 8.3 L Magnesium 1.6 L Total Bilirubin 0.3 AST 37 ALT 34 Alkaline Phosphatase 56 Total Protein 5.7 L Albumin 2.3 L 04/06/19 04/07/19 21:41 06:30 WBC RBC Hgb Hct MCV MCH MCHC RDW Plt Count MPV Absolute Neuts (auto) Neutrophils % Lymphocytes % Monocytes % Eosinophils % Basophils % Sodium Potassium Chloride Carbon Dioxide Anion Gap BUN Creatinine Est GFR (CKD-EPI)AfAm Est GFR (CKD-EPI)NonAf POC Glucometer 136 92 Random Glucose Calcium Magnesium Total Bilirubin AST ALT Alkaline Phosphatase Total Protein Albumin HOSPITAL COURSE: Date of Admission:03/29/19 Date of Discharge: 04/07/19 Pre-Hospital Course 89 year-old male with a PMH significant for atrial fibrillation on Eliquis, 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 Sent by ambulance from [facility] on [facility] for apparent urinary retention. Patient speaks mainly Grenadian and is a poor historian. The patient appeared to endorse that he has abdominal pain but cannot provide any other history. Patient's daughter, Waqas Mcneil stated that the patient had a CVA on August 13, 2018, 3 weeks after his girlfriend of 13 years , with subsequent left hemiparesis. After an 8 week hospitalization at [facility], patient was a resident of the [facility] until of this year when he was transferred back to [facility] for a 2 week stay with a bladder infection with a kidney stone. He was then sent to [facility] for PT and wound care of decubitus wounds of his lower back. He was treated there for 4 days until his presentation to [facility]. Daughter also states he has lost approx 45lbs since his CVA. 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 Admitted for urinary retention. Stage III pressure ulcer on admission. Urinary retention BPH --doyle dc'd, voiding freely --CT with contrast: no evidence of colovesicular fistula --Dr. Irby called, he will see the patient in the outpatient setting --continue increased tamsulosin BID Enterococcus UTI --treated with meropenem x 4 days, vanc x 5 days; course complete Yeast bacteremia --03/29 blood cultures x 2 positive for yeast-like organism --04/02 sent to [facility] for further speciation, results still pending --started IV fluconazole on 04/04, today is day #3; will need 2 more weeks of IV therapy via PICC line Acute kidney injury, resolved --Cr 2.9 on admission, 0.6 at time of discharge Atrial fibrillation --continued metoprolol, dig for rate control --continued Eliquis CVA --right hemiplegia --stable Type II NIDDM --Novolog sliding scale coverage GERD --continued Pepcid Severe malnutrition --thin, frail, cachectic --45lb weight loss in 7 months --nutrition consult Dementia --not on medication --at baseline Minutes to complete discharge: 35 Discharge Summary Problems reviewed: Yes Reason For Visit: URINARY EVALUATION/PLACEMENT OF DOYLE Current Active Problems Afib (Acute) Complicated UTI (urinary tract infection) (Acute) Dementia (Acute) Diabetes (Acute) HTN (hypertension) (Acute) Obstructive uropathy (Acute) UTI (urinary tract infection) (Acute) Condition: Stable - Instructions Diet, Activity, Other Instructions: You continue to require treatment of a yeast infection in your blood. You need an additional 14 days of IV fluconazole. Arrangements have been made for you to receive this medication at home. We increased you dose of Flomax from once daily to twice daily. Continue to take this higher dose until you see a urologist. It is recommended you follow up with the following providers: 1. Dr. Uriel Wood - platform worker - [facility] 2. Dr. Soraida Balbuena - primary care - [facility] 3. Dr. Barry Callejas - urologist - [facility] - office hours on Fridays at [address] [place] [address] between 9am and 2pm 4. Dr. Elena Scruggs - infectious disease - office across from [facility] - office hours on Saturday 5. Dr. Culp - interventional radiology - [facility] - 1st Floor Radiology Department - call [phone] and make appointment with Mariana Emerson 6. Dr. Piyush To - [facility] - makes house calls At the conclusion of the IV antibiotic treatment (2 weeks) you will need to see Dr. Scruggs. He will tell you when the PICC line should be removed. Then call Mariana Emerson at [facility] and make an appointment to have Dr. Culp remove the PICC line. You should make appointments with Sree Navarro, and Britta within 1-2 weeks of your discharge. You should make an appointment with Dr. To as soon as possible. Referrals: Marquita Scruggs MD [Staff Physician] - 2 Weeks Barry Callejas MD [Staff Physician] - 2 Weeks Piyush To MD [Staff Physician] - 1 Week Matheus Boykin MD [Staff Physician] - 2 Weeks Uriel Wood MD [Staff Physician] - 2 Weeks Soraida Balbuena MD [Non Staff, Medical] - 2 Weeks Disposition: HOME - Home Medications Comprehensive Discharge Medication List: Ambulatory Orders Apixaban [Eliquis] 5 mg PO BID 03/29/19 Ascorbic Acid [Vitamin C] 250 mg PO DAILY 03/29/19 Digoxin [Lanoxin -] 0.125 mg PO DAILY 03/29/19 Famotidine [Pepcid] 20 mg PO DAILY 03/29/19 Insulin (LOG) Aspart [NovoLOG -] 0 units SQ TID 03/29/19 Metoprolol Succinate 25 mg PO DAILY 03/29/19 Fluconazole in NaCl,Iso-Osm [Fluconazole-NaCl 200 mg/100 ml] 200 mg IV DAILY # 14 piggyback 04/06/19 Tamsulosin HCl [Flomax] 0.4 mg PO BID #60 capsule 04/06/19 This patient is new to me today: No Emergency Visit: Yes ED Registration Date: 03/29/19 Care time: The patient presented to the Emergency Department on the above date and was hospitalized for further evaluation of their emergent condition. Critical Care patient: No - Discharge Referral Referred to [facility] Med [facility].C.: No Radha Streeter, KIYA: This documentation has been prepared by the Alan awan Maria, SCRIBE, under my direction and personally reviewed by me in its entirety. I confirm that the documentation accurately reflects all work, treatment, procedures, and medical decision making performed by me.
--- NOTE | 2019-04-10 09:58 | PN ---
Documentation entered by Soraida Phillips SCRIBE, acting as scribe for Radha Streeter NP. Physical Exam: SUBJECTIVE: Patient seen and examined at bedside. Maltese spanish interpreter/translator present. OBJECTIVE: Vital Signs Period Temp Pulse Resp BP Sys/Aguilera Pulse Ox Last 24 Hr 98.2 F-99.2 F 70-111 19-20 104-133/46-75 96-99 GENERAL: A&Ox1. Confused. Thin, frail, cachectic. LUNGS:CTA HEART: Irregular, S1, S2 ABDOMEN: Soft, nontender, nondistended; morin catheter, cloudy yellow urine EXTREMITIES: 2+ pulses, warm, well-perfused, no edema. NEUROLOGICAL: LUE and LLE flaccid paralysis SKIN: Stage I sacral pressure ulcer; Stage III sacral pressure ulcer present on admission Laboratory Results - last 24 hr 03/29/19 03/29/19 03/29/19 10:18 12:00 15:54 WBC 10.4 RBC 3.39 L Hgb 10.7 L Hct 31.8 L MCV 93.9 MCH 31.7 MCHC 33.8 RDW 14.6 Plt Count 230 MPV 9.6 Absolute Neuts (auto) 9.0 Neutrophils % 86.3 H Lymphocytes % 6.6 L Monocytes % 5.5 Eosinophils % 1.2 Basophils % 0.4 POC Glucometer 105 118 03/29/19 03/30/19 21:23 06:16 WBC RBC Hgb Hct MCV MCH MCHC RDW Plt Count MPV Absolute Neuts (auto) Neutrophils % Lymphocytes % Monocytes % Eosinophils % Basophils % POC Glucometer 89 76 Active Medications Generic Name Dose Route Start Last Admin Trade Name Lesly PRN Reason Stop Dose Admin Acetaminophen 500 mg 03/29/19 14:37 Tylenol - PO Q6H PRN PAIN 1-3 Apixaban 2.5 mg 03/29/19 22:00 03/29/19 21:30 Eliquis - PO 2.5 mg BID SHAILA Administration Digoxin 0.125 mg 03/29/19 14:15 03/29/19 14:58 Lanoxin - PO 0.125 mg DAILY SHAILA Administration Famotidine 20 mg 03/29/19 10:00 03/29/19 09:53 Pepcid - PO 20 mg DAILY SHAILA Administration Sodium Chloride 1,000 mls @ 75 mls/hr 03/29/19 05:00 03/30/19 05:00 Normal Saline - IV 75 mls/hr ASDIR SHAILA Administration Meropenem 500 mg/ Dextrose 100 mls @ 200 mls/hr 03/29/19 22:00 03/29/19 21:30 IVPB 200 mls/hr BID SHAILA Administration Insulin Aspart 1 vial 03/29/19 16:30 03/30/19 06:26 Novolog Vial Sliding Scale - SQ Not Given ACHS [facility] Protocol Metoprolol Tartrate 12.5 mg 03/29/19 14:40 03/29/19 21:30 Lopressor - PO 12.5 mg BID SHAILA Administration Senna 2 tab 03/29/19 22:00 03/29/19 21:30 Senna - PO 2 tab HS SHAILA Administration Tamsulosin HCl 0.4 mg 03/30/19 08:30 Flomax - PO DAILY@0830 [facility] ASSESSMENT/PLAN 89 year-old male with a PMH significant for atrial fibrillation on Eliquis, 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 Admitted for urinary retention. Stage III pressure ulcer on admission. Urinary retention BPH --morin placed, initial return of 1100ccs of urine --concern expressed by ED MD for possible feculent material in urine; initial CT done without contrast; needs repeat CT with IV contrast to r/o colovesicular fistula --Dr. Irby called, he will see the patient in the outpatient setting --increase tamsulosin to BID --IV fluids Group D/Enterococcus UTI --continue meropenem (day #2) Atrial fibrillation --continue metoprolol, dig for rate control --continue Eliquis Severe malnutrition --thin, frail, cachectic --45lb weight loss in 7 months --nutrition consult Visit type - Emergency Visit Emergency Visit: Yes ED Registration Date: 03/29/19 Care time: The patient presented to the Emergency Department on the above date and was hospitalized for further evaluation of their emergent condition. - New Patient This patient is new to me today: Yes Date on this admission: 04/10/19 - Critical Care Critical Care patient: No Radha Streeter NP: This documentation has been prepared by the Alan awan Maria, SCRIBE, under my direction and personally reviewed by me in its entirety. I confirm that the documentation accurately reflects all work, treatment, procedures, and medical decision making performed by me.
[2019-04-10] MEDS ORDERED: AZITHROMYCIN 250 MG TABLET PO ONE (10:08)
== END 2019-04-07 14:48 | disposition home or self-care (01) | DRG 871 ==
LOC: FER 00:29 → FM/S 05:01
PROVIDERS: ADMIT Internal Medicine; ATTEND Nurse Practitioner Acute Care
PROC: 02HV33Z Insertion of Infusion Device into Superior Vena Cava, Percutaneous Approach (ICD-10-PCS; principal; 2019-04-06)
PROC: B518ZZA Fluoroscopy of Superior Vena Cava, Guidance (ICD-10-PCS; 2019-04-06)
DX: R78.81 Bacteremia (principal); L89.153 Pressure ulcer of sacral region, stage 3; E43 Unspecified severe protein-calorie malnutrition; N39.0 Urinary tract infection, site not specified; R64 Cachexia; E87.2 Acidosis; N17.9 Acute kidney failure, unspecified; I69.351 Hemiplegia and hemiparesis following cerebral infarction affecting right dominant side; E11.9 Type 2 diabetes mellitus without complications; D72.829 Elevated white blood cell count, unspecified; R33.9 Retention of urine, unspecified; K21.9 Gastro-esophageal reflux disease without esophagitis; N40.0 Benign prostatic hyperplasia without lower urinary tract symptoms; I48.91 Unspecified atrial fibrillation; B95.2 Enterococcus as the cause of diseases classified elsewhere; Z68.21 Body mass index [BMI] 21.0-21.9, adult; F03.90 Unspecified dementia, unspecified severity, without behavioral disturbance, psychotic disturbance, mood disturbance, and anxiety; N13.9 Obstructive and reflux uropathy, unspecified; E87.6 Hypokalemia; E83.42 Hypomagnesemia
CPT/HCPCS: 36415; 36569; 71045-TC-FY; 74176-TC; 74178-TC; 77001-TC-FY; 80048; 80053; 80061; 80162; 81003; 82550; 82565; 82962; 83605; 83735; 84100; 84132; 84300; 84484; 85025; 85027; 85610; 87040; 87077; 87086; 87106; 87186; 93005; 97162-GP; 99283-25; C1751; G0480; J0131; J7030; Q9967

== ENCOUNTER 2019-04-27 14:09 | Emergency (ER) | payer OTHER ==
[2019-04-27 14:29] VITALS: BP 112/51; PULSE 73; TEMP 98; BMI 22.4
--- NOTE | 2019-04-27 14:29 | PDOC ---
Rapid Medical Evaluation Chief Complaint: Urinary Catheter Problem Time Seen by Provider: 04/27/19 14:24 Medical Evaluation: Allergies Allergy/AdvReac Type Severity Reaction Status Date / Time Penicillins Allergy Mild Nausea Verified 04/27/19 14:23 04/27/19 14:24 I performed a brief in-person evaluation of this patient. 89-year-old male with history of Afib, HTN, hearing impairment, CVA x 7 months ago with residual left-sided weakness, dementia, sacral pressure ulcer, prostate problems requiring chronic indwelling urinary catheter presenting with leaking catheter. Urologist Dr. Callejas ([place]) [phone] Pertinent physical exam findings: Alert, interactive but unable to state name Vital signs unremarkable I have ordered the following: None Patient to proceed to the ED for further evaluation. Discharge Disposition - Diagnosis Urinary catheter complication - Referrals - Patient Instructions - Post Discharge Activity
--- NOTE | 2019-04-27 16:40 | PDOC ---
History of Present Illness - General Chief Complaint: Urinary Catheter Problem Stated Complaint: SENT BY PCP/CATHETER PROBLEM Time Seen by Provider: 04/27/19 14:24 History Source: Patient Exam Limitations: No Limitations - History of Present Illness Initial Comments: 04/27/19 16:34 Patient is 89M with history of DM, GERD, BPH, A. fib, s/p CVA here today with leakage around his urinary catheter. Patient's daughter at bedside states that the aide reported urine spilling around the morin starting last night. The daugher called his urologist who told him to be evaluated in the ED because he would not be able to be seen until saturday. Patient is a poor historian at baseline. Denies abdominal pain. Daughter reports urine output has been normal to the morin. Past History - Past Medical History Allergies/Adverse Reactions: Allergies Allergy/AdvReac Type Severity Reaction Status Date / Time Penicillins Allergy Mild Nausea Verified 04/27/19 14:23 Home Medications: Ambulatory Orders Amino Acids/Protein Hydrolys [Prosource No Carb Liquid Pkt] 30 ml PO BID@0800, 1730 #60 packet 04/07/19 Apixaban [Eliquis -] 2.5 mg PO BID #60 tablet 04/07/19 Digoxin [Lanoxin -] 0.125 mg PO DAILY #30 tablet 04/07/19 Fluconazole in NaCl,Iso-Osm [Fluconazole-NaCl 200 mg/100 ml] 200 mg IV DAILY # 14 piggyback 04/07/19 Metoprolol Succinate 25 mg PO DAILY #30 tab.er.24h 04/07/19 Tamsulosin HCl 0.4 mg PO BID #60 capsule 04/07/19 Anemia: No Asthma: No Cancer: No Cardiac Disorders: Yes (IRREGULAR HEARTBEAT) CVA: Yes (LEFT SIDED WEAKNESS) COPD: No CHF: No (STRESS TEST 2011) Dementia: Yes Diabetes: No GI Disorders: Yes (GERD RECTAL BLEEDING) Disorders: Yes (BPH) HTN: Yes Hypercholesterolemia: No Liver Disease: No Seizures: No Thyroid Disease: No - Surgical History Abdominal Surgery: No Appendectomy: No Cardiac Surgery: No Cholecystectomy: No Lung Surgery: No Neurologic Surgery: Yes (PLATE PLACED ON RIGHT SIDE OF HEAD AFTER HEAD TRAUMA) Orthopedic Surgery: Yes (LEFT KNEE REPLACMENT 2009) - Immunization History Immunization Up to Date: Yes - Psycho Social/Smoking Cessation Hx Smoking History: Never smoked Have you smoked in the past 12 months: No Hx Alcohol Use: No Drug/Substance Use Hx: No Substance Use Type: Alcohol Hx Substance Use Treatment: No Review of Systems - Review of Systems Able to Perform ROS?: Yes Comments:: 04/27/19 16:37 GENERAL/CONSTITUTIONAL: No fever or chills. No weakness. HEAD, EYES, EARS, NOSE AND THROAT: No change in vision. No sore throat. CARDIOVASCULAR: No chest pain or shortness of breath RESPIRATORY: No cough, wheezing, or hemoptysis. GASTROINTESTINAL: No nausea, vomiting, diarrhea or constipation. GENITOURINARY: No dysuria, frequency, +leaking around morin MUSCULOSKELETAL: No joint or muscle swelling or pain. No neck or back pain. SKIN: No rash NEUROLOGIC: No headache, vertigo, loss of consciousness, or change in strength/ sensation. ALLERGIC/IMMUNOLOGIC: No hives or skin allergy. *Physical Exam - Vital Signs Last Vital Signs Temp Pulse Resp BP Pulse Ox 98.0 F 73 18 112/51 L 100 04/27/19 14:24 04/27/19 14:24 04/27/19 14:24 04/27/19 14:24 04/27/19 14:24 - Physical Exam 04/27/19 16:38 GENERAL: Awake, alert, in no acute distress HEAD: No signs of trauma, normocephalic, atraumatic EYES: PERRLA, EOMI, sclera anicteric, conjunctiva clear NECK: Normal ROM, supple, no lymphadenopathy, JVD, or masses LUNGS: No distress, speaks full sentences, clear to auscultation bilaterally HEART: Regular rate and rhythm, normal S1 and S2, no murmurs, rubs or gallops, peripheral pulses normal and equal bilaterally. ABDOMEN: Soft, nontender, normoactive bowel sounds. No guarding, no rebound. No masses NEUROLOGICAL: Cranial nerves II through XII grossly intact. Left sided paralysis. SKIN: Warm, Dry, normal turgor, no rashes or lesions noted. Medical Decision Making - Medical Decision Making 04/27/19 16:38 Patient is 89M with multiple co-morbidities here today with leakage around morin. Vitals normal and stable. No signs of infection. No leakage around morin on my examination. Morin exchanged, 16fr same as original placed without difficulty. Will discharge home with leg bag. Discharge - Discharge Information Problems reviewed: Yes Clinical Impression/Diagnosis: Urinary catheter complication Qualifiers: Encounter type: initial encounter Qualified Code(s): T83.9XXA - Unspecified complication of genitourinary prosthetic device, implant and graft, initial encounter Condition: Good Disposition: HOME - Admission No - Follow up/Referral Referrals: Hans Quan MD [Primary Care Provider] - - Patient Discharge Instructions Patient Printed Discharge Instructions: How to Care for Your Morin Catheter -- Male Additional Instructions: Please follow up with your urologist on Saturday. Please monitor the amount urine output and return if the urine output drops. - Post Discharge Activity
--- NOTE | 2019-04-27 16:41 | PDOC ---
Attending Attestation - Resident Resident Name: KjRandal brush - ED Attending Attestation I have performed the following: I have examined & evaluated the patient, The case was reviewed & discussed with the resident, I agree w/resident's findings & plan, Exceptions are as noted - HPI HPI: 89 yo M history DM, GERD, BPH, afib, CVA, indwelling morin presents with leakage around the morin. Denies pain. No change in urine output. - Physicial Exam PE: GENERAL: Awake, alert, and fully oriented, in no acute distress HEAD: No signs of trauma EYES: PERRLA, EOMI, sclera anicteric, conjunctiva clear ENT: Auricles normal inspection, hearing grossly normal, nares patent, oropharynx clear without exudates. Moist mucosa NECK: Normal ROM, supple, no lymphadenopathy, JVD, or masses LUNGS: Breath sounds equal, clear to auscultation bilaterally. No wheezes, and no crackles HEART: Regular rate and rhythm, normal S1 and S2, no murmurs, rubs or gallops ABDOMEN: Soft, nontender, normoactive bowel sounds. No guarding, no rebound. No masses EXTREMITIES: Normal range of motion, no edema. No clubbing or cyanosis. No cords, erythema, or tenderness NEUROLOGICAL: Cranial nerves II through XII grossly intact. Normal speech, normal gait. Motor and sensation intact SKIN: Warm, dry, normal turgor, no rashes or lesions noted. : Morin catheter in place, clear urine in bag. No erythema at insertion site. - Medical Decision Making Will replace morin in ED. No signs of infection.
[2019-04-27 17:49] LABS: HYALINE CASTS 37 /lpf (0-8); PH,URINE 5.5 (5.0-8.0); URINE APPEARANCE TURBID; URINE BACTERIA 22.9 /hpf (NEGATIVE); URINE BILIRUBIN NEGATIVE (NEGATIVE); URINE COLOR ORANGE; URINE GLUCOSE (UA) NEGATIVE (NEGATIVE); URINE KETONE NEGATIVE (NEGATIVE); URINE LEUK ESTERASE 2+ (NEGATIVE); URINE NITRITE NEGATIVE (NEGATIVE); URINE PROTEIN 3+ (NEGATIVE); URINE RBC 2007 /hpf (0-4); URINE UROBILINOGEN 0.2 mg/dL (0.2-1.0); URINE WBC 99 /hpf (0-5)
== END 2019-04-27 17:16 | disposition home or self-care (01) ==
LOC: JER 14:09
PROC: 0T2BX0Z Change Drainage Device in Bladder, External Approach (ICD-10-PCS; principal; 2019-04-27)
DX: T83.038A Leakage of other urinary catheter, initial encounter (principal); I10 Essential (primary) hypertension; E11.9 Type 2 diabetes mellitus without complications; K21.9 Gastro-esophageal reflux disease without esophagitis; N40.0 Benign prostatic hyperplasia without lower urinary tract symptoms; I48.91 Unspecified atrial fibrillation; I69.854 Hemiplegia and hemiparesis following other cerebrovascular disease affecting left non-dominant side; Z79.01 Long term (current) use of anticoagulants; Z96.652 Presence of left artificial knee joint
CPT/HCPCS: 51702; 81003; 87086; 99282-25

== ENCOUNTER 2019-06-04 12:14 | Emergency (ER) | payer OTHER ==
--- NOTE | 2019-06-04 12:29 | PDOC ---
History of Present Illness - General Chief Complaint: Urinary Catheter Problem Stated Complaint: "NEEDS MORIN CATHETER CHANGED" Time Seen by Provider: 06/04/19 12:22 History Source: Patient Exam Limitations: No Limitations - History of Present Illness Initial Comments: 06/04/19 12:29 89y M hx of DM, GERD, BPH with morin cather, afib sp CVA Presents with complaint of Need of a Morin change. Patient was instructed by his urologist to come to the ER to change his Morin as it been approximately 5 weeks. Patient does have a appointment with his urologist In the near future the patient denies any symptoms including fever, chills, back pain, nausea, vomiting. Patient has been having urinary output from the Morin. exam: GENERAL: The patient is awake, alert, and fully oriented, Nontoxic - in no acute distress. HEAD: Normocephalic, atraumatic. LUNGS: Breath sounds equal, clear to auscultation bilaterally. No wheezes, no rhonchi, no rales. HEART: irregularly irregular ABDOMEN: Soft, nontender, No guarding, no rebound. No CVA tenderness : morin in place wthout drainage/discharge or erythema. t. SKIN: Warm, Dry, normal turgor, will replace morin will dc to fu with urology 06/08/19 15:25 Past History - Past Medical History Allergies/Adverse Reactions: Allergies Allergy/AdvReac Type Severity Reaction Status Date / Time Penicillins Allergy Mild Nausea Verified 06/04/19 12:18 Home Medications: Ambulatory Orders Apixaban [Eliquis -] 2.5 mg PO BID #60 tablet 04/07/19 Digoxin [Lanoxin -] 0.125 mg PO DAILY #30 tablet 04/07/19 Metoprolol Succinate 25 mg PO DAILY #30 tab.er.24h 04/07/19 Methenamine Hippurate [Hiprex [Nf] -] 1 gm PO BID 06/04/19 Sitagliptin Phosphate [Januvia -] 25 mg PO DAILY 06/04/19 Tamsulosin HCl 0.4 mg PO DAILY 06/04/19 Anemia: No Asthma: No Cancer: No Cardiac Disorders: Yes (IRREGULAR HEARTBEAT) CVA: Yes (LEFT SIDED WEAKNESS) COPD: No CHF: (STRESS TEST 2011) Dementia: Yes Diabetes: No GI Disorders: Yes (GERD RECTAL BLEEDING) Disorders: Yes (BPH) HTN: Yes Hypercholesterolemia: No Liver Disease: No Seizures: No Thyroid Disease: No - Surgical History Abdominal Surgery: No Appendectomy: No Cardiac Surgery: No Cholecystectomy: No Lung Surgery: No Neurologic Surgery: Yes (PLATE PLACED ON RIGHT SIDE OF HEAD AFTER HEAD TRAUMA) Orthopedic Surgery: Yes (LEFT KNEE REPLACMENT 2009) - Immunization History Immunization Up to Date: Yes - Psycho Social/Smoking Cessation Hx Smoking History: Never smoked Have you smoked in the past 12 months: No Information on smoking cessation initiated: No Hx Alcohol Use: No Drug/Substance Use Hx: No Substance Use Type: Alcohol Hx Substance Use Treatment: No *Physical Exam - Vital Signs Last Vital Signs Temp Pulse Resp BP Pulse Ox 97.5 F L 71 18 130/64 96 06/04/19 12:14 06/04/19 12:14 06/04/19 12:14 06/04/19 12:14 06/04/19 12:14 Discharge - Discharge Information Problems reviewed: Yes Clinical Impression/Diagnosis: Urinary catheter (Morin) change required Condition: Improved Disposition: HOME - Admission No - Follow up/Referral - Patient Discharge Instructions Patient Printed Discharge Instructions: How to Care for Your Morin Catheter -- Male, DI for Urinary Retention in Men Additional Instructions: Return to the emergency department immediately with ANY new, persistent or worsening symptoms including any pain, fever/chills, nausea/vomting or other cconersn. You MUST call and follow up with your urologist as scheduled for further evaluation of your symptoms. Results were discussed with you. Please make sure your doctor reviews the results of your emergency evaluation. Your Emergency Department visit is not complete without a follow up with your doctor. Print Language: ALBANIAN - Post Discharge Activity
[2019-06-04 12:39] VITALS: BP 130/64; PULSE 71; TEMP 97.5; BMI 21.2
== END 2019-06-04 13:00 | disposition home or self-care (01) ==
LOC: FER 12:14
PROC: 0T9B70Z Drainage of Bladder with Drainage Device, Via Natural or Artificial Opening (ICD-10-PCS; principal; 2019-06-04)
DX: Z48.03 Encounter for change or removal of drains (principal); I10 Essential (primary) hypertension; N40.0 Benign prostatic hyperplasia without lower urinary tract symptoms; K21.9 Gastro-esophageal reflux disease without esophagitis; Z86.73 Personal history of transient ischemic attack (TIA), and cerebral infarction without residual deficits; Z88.0 Allergy status to penicillin; I50.9 Heart failure, unspecified
CPT/HCPCS: 51702; 99283-25

== ENCOUNTER 2020-03-24 13:10 | Inpatient (IN) | payer OTHER ==
[2020-03-24] MEDS ORDERED: dilTIAZem HCL 125 MG/25 ML - 25 ML VIAL ONE (13:49)
[2020-03-24 14:28] LABS: BASO % 0.6 % (0-2.0); EOS % 1.3 % (0-4.5); HEMATOCRIT 32.5 % (35.4-49); HEMOGLOBIN 10.9 GM/dL (11.7-16.9); LYMPH % 12.3 % (8-40); MCH 31.1 pg (25.7-33.7); MCHC 33.4 g/dl (32.0-35.9); MONO % 6.1 % (3.8-10.2); NEUT % 79.7 % (42.8-82.8); PLATELET COUNT 235 K/MM3 (134-434); RDW 15.6 % (11.9-15.9); WHITE BLOOD COUNT 6.8 K/mm3 (4.0-10.0)
[2020-03-24 14:48] LABS: ALBUMIN 2.9 g/dl (3.4-5.0); BLOOD UREA NITROGEN 22.2 mg/dL (7-18); CALCIUM 9.5 mg/dL (8.5-10.1)
[2020-03-24 14:53] LABS: BILIRUBIN,TOTAL 0.4 mg/dL (0.2-1)
[2020-03-24] MEDS ORDERED: dilTIAZem HCL 30 MG TABLET PO ONE (15:10)
[2020-03-24] MEDS ORDERED: LACTATED RINGERS SOLUTION 1000 ML INFUS.BAG IV ONE (15:11)
[2020-03-24] MEDS ORDERED: dilTIAZem HCL 30 MG TABLET ONE (15:16)
[2020-03-24 16:46] LABS: EPI CELLS 5 /uL (0-25.1); HYALINE CASTS 11 /uL (0-3.1); PH,URINE 6.5 (5.0-8.0); URINE APPEARANCE CLOUDY; URINE BACTERIA 8846 /uL (0-1359); URINE BILIRUBIN NEGATIVE (NEGATIVE); URINE COLOR YELLOW; URINE GLUCOSE (UA) NEGATIVE (NEGATIVE); URINE KETONE NEGATIVE (NEGATIVE); URINE LEUK ESTERASE 2+ (NEGATIVE); URINE NITRITE NEGATIVE (NEGATIVE); URINE PROTEIN 3+ (NEGATIVE); URINE RBC 1683 /uL (0-23.9); URINE UROBILINOGEN 0.2 mg/dL (0.2-1.0); URINE WBC 354 /uL (0-25.8)
[2020-03-24] MEDS ORDERED: HALOPERIDOL LACTATE 5 MG/ML IM ONE ×2 (17:41→18:07)
[2020-03-24] MEDS ORDERED: HALOPERIDOL LACTATE 5 MG/ML ONE (17:48)
[2020-03-24] MEDS ORDERED: CEFTRIAXONE 1 GM in DEXTROSE 5%-WATER - 50 ML IVPB ONE (19:25)
[2020-03-24] MEDS: DEXTROSE 5%-0.45% SALINE 1,000 ML IV SCH (20:01)
[2020-03-24] MEDS: INSULIN SLIDING SCALE (NOVOLOG) 1 VIAL SQ SCH (20:01)
[2020-03-24] MEDS ORDERED: QUEtiapine FUMARATE 25 MG TABLET PO ONE (20:47)
[2020-03-24] MEDS ORDERED: QUEtiapine FUMARATE 25 MG TABLET ONE (20:53)
[2020-03-25 07:28] LABS: BASO % 0.8 % (0-2.0); EOS % 3.2 % (0-4.5); HEMATOCRIT 30.7 % (35.4-49); HEMOGLOBIN 10.4 GM/dL (11.7-16.9); LYMPH % 35.9 % (8-40); MCH 31.5 pg (25.7-33.7); MEAN CELL VOLUME 92.6 fl (80-96); MEAN PLT VOLUME 8.5 fl (7.5-11.1); MONO % 11.1 % (3.8-10.2); PLATELET COUNT 216 K/MM3 (134-434); RBC 3.31 M/mm3 (4.00-5.60); RDW 15.4 % (11.9-15.9); WHITE BLOOD COUNT 5.8 K/mm3 (4.0-10.0)
[2020-03-25 07:45] LABS: INR 1.14 (0.83-1.09)
[2020-03-25 07:54] LABS: BILIRUBIN,TOTAL 0.4 mg/dL (0.2-1); TOT PROT 6.3 g/dl (6.4-8.2)
[2020-03-25 07:56] LABS: CREATININE 0.9 mg/dL (0.55-1.3)
[2020-03-25 07:57] LABS: PHOSPHOROUS 3.2 mg/dL (2.5-4.9)
[2020-03-25 07:59] LABS: ALBUMIN 2.6 g/dl (3.4-5.0); CALCIUM 9.2 mg/dL (8.5-10.1)
[2020-03-25] MEDS: INSULIN SLIDING SCALE (NOVOLOG) 1 VIAL SQ SCH ×3 (09:37→17:24)
[2020-03-25] MEDS: METOPROLOL TARTRATE 5 MG/5 ML VIAL IVPUSH PRN (16:15)
[2020-03-25] MEDS: DEXTROSE 5%-0.45% SALINE 1,000 ML IV SCH ×2 (16:15→20:20)
[2020-03-25] MEDS ORDERED: LORazepam 2 MG/ML SDV VIAL IVPUSH ONE (20:25)
[2020-03-25] MEDS ORDERED: METOPROLOL TARTRATE 5 MG/5 ML VIAL IVPUSH ONE (20:29)
[2020-03-25] MEDS: ASCORBIC ACID 500 MG TABLET (FP) PO SCH (21:18)
[2020-03-26] MEDS ORDERED: METOPROLOL TARTRATE 5 MG/5 ML VIAL IVPUSH ONE (01:49)
[2020-03-26] MEDS ORDERED: QUEtiapine FUMARATE 25 MG TABLET PO ONE (01:56)
[2020-03-26] MEDS: INSULIN SLIDING SCALE (NOVOLOG) 1 VIAL SQ SCH ×4 (07:45→22:09)
[2020-03-26 08:43] LABS: BASO % 0.4 % (0-2.0); EOS % 1.3 % (0-4.5); HEMATOCRIT 32.5 % (35.4-49); HEMOGLOBIN 10.9 GM/dL (11.7-16.9); LYMPH % 15.6 % (8-40); MCH 31.2 pg (25.7-33.7); MCHC 33.5 g/dl (32.0-35.9); MEAN CELL VOLUME 93.3 fl (80-96); MEAN PLT VOLUME 9.4 fl (7.5-11.1); MONO % 10.2 % (3.8-10.2); NEUT % 72.5 % (42.8-82.8); PLATELET COUNT 221 K/MM3 (134-434); RBC 3.48 M/mm3 (4.00-5.60); RDW 15.4 % (11.9-15.9); WHITE BLOOD COUNT 5.8 K/mm3 (4.0-10.0)
[2020-03-26 09:02] LABS: CHLORIDE 105 mmol/L (98-107); SODIUM 139 mmol/L (136-145)
[2020-03-26 09:05] LABS: ALBUMIN 2.8 g/dl (3.4-5.0); ANION GAP 7 MMOL/L (8-16); BLOOD UREA NITROGEN 14.1 mg/dL (7-18); CALCIUM 9.1 mg/dL (8.5-10.1); CO2 27 mmol/L (21-32); GLUCOSE,RANDOM 101 mg/dL (74-106)
[2020-03-26 09:09] LABS: CREATININE 0.8 mg/dL (0.55-1.3); SGOT/AST 24 U/L (15-37); SGPT/ALT 18 U/L (13-61)
[2020-03-26 09:10] LABS: BILIRUBIN,TOTAL 0.6 mg/dL (0.2-1); TOT PROT 6.6 g/dl (6.4-8.2)
[2020-03-26 09:11] LABS: ALK PHOS 92 U/L (45-117)
[2020-03-26] MEDS: ASCORBIC ACID 500 MG TABLET (FP) PO SCH ×4 (09:52→21:54)
[2020-03-26] MEDS: METOPROLOL TARTRATE 25 MG TABLET (FP) PO SCH ×5 (09:52→21:54)
[2020-03-26] MEDS: ATORVASTATIN CA 20 MG TABLET (FP) PO SCH ×3 (09:52→14:30)
[2020-03-26] MEDS: DIGOXIN 0.125 MG TABLET PO SCH ×3 (09:52→14:30)
[2020-03-26] MEDS: APIXABAN 2.5 MG TABLET PO SCH ×4 (09:54→21:54)
[2020-03-26] MEDS ORDERED: LORazepam 2 MG/ML SDV VIAL IM ONE (10:12)
[2020-03-26] MEDS: ERTAPENEM SODIUM 1 GM in SODIUM CHLORIDE 50 ML IVPB SCH ×2 (10:16→12:04)
[2020-03-26] MEDS: DEXTROSE 5%-0.45% SALINE 1,000 ML IV SCH ×2 (12:34→18:49)
[2020-03-26 13:08] VITALS: BMI 26.6
[2020-03-26] MEDS: METOPROLOL TARTRATE 5 MG/5 ML VIAL IVPUSH PRN (14:29)
[2020-03-26] MEDS: DAPTOMYCIN 450 MG in SODIUM CHLORIDE 50 ML IVPB SCH (15:47)
[2020-03-26] MEDS ORDERED: MEROPENEM 1 GM VIAL (RESTRICTED TO ID) IVPB ONE (18:09)
[2020-03-26] MEDS ORDERED: DEXTROSE 5%-WATER 100 ML IVPB ONE (18:09)
[2020-03-26] MEDS: MEROPENEM 1 GM in DEXTROSE 5%-WATER 100 ML IVPB SCH (18:49)
[2020-03-26] MEDS: MEMANTINE HCL 5 MG TABLET (UD) PO SCH (22:09)
[2020-03-27] MEDS ORDERED: DEXTROSE 5%-WATER 100 ML IVPB ONE ×3 (02:32→18:10)
[2020-03-27] MEDS ORDERED: MEROPENEM 1 GM VIAL (RESTRICTED TO ID) IVPB ONE ×3 (02:32→18:10)
[2020-03-27] MEDS: MEROPENEM 1 GM in DEXTROSE 5%-WATER 100 ML IVPB SCH ×3 (03:21→18:16)
[2020-03-27] MEDS: INSULIN SLIDING SCALE (NOVOLOG) 1 VIAL SQ SCH ×3 (06:30→17:01)
[2020-03-27 06:49] LABS: BASO % 0.7 % (0-2.0); EOS % 3.3 % (0-4.5); HEMATOCRIT 32.5 % (35.4-49); HEMOGLOBIN 11.1 GM/dL (11.7-16.9); LYMPH % 30.6 % (8-40); MCH 31.4 pg (25.7-33.7); MCHC 34.1 g/dl (32.0-35.9); MEAN CELL VOLUME 92.1 fl (80-96); MEAN PLT VOLUME 8.6 fl (7.5-11.1); MONO % 12.7 % (3.8-10.2); NEUT % 52.7 % (42.8-82.8); PLATELET COUNT 217 K/MM3 (134-434); RBC 3.53 M/mm3 (4.00-5.60); RDW 15.8 % (11.9-15.9); WHITE BLOOD COUNT 5.9 K/mm3 (4.0-10.0)
[2020-03-27 07:13] LABS: CALCIUM 9.7 mg/dL (8.5-10.1)
[2020-03-27 07:14] LABS: ALBUMIN 2.7 g/dl (3.4-5.0); BLOOD UREA NITROGEN 16.6 mg/dL (7-18); MAGNESIUM 1.8 mg/dL (1.8-2.4)
[2020-03-27 07:17] LABS: CREATININE 0.9 mg/dL (0.55-1.3)
[2020-03-27 07:18] LABS: BILIRUBIN,TOTAL 0.9 mg/dL (0.2-1); TOT PROT 6.5 g/dl (6.4-8.2)
[2020-03-27] MEDS ORDERED: ERTAPENEM SODIUM 1 GM in SODIUM CHLORIDE 50 ML IVPB SCH (10:00)
[2020-03-27] MEDS: DIGOXIN 0.125 MG TABLET PO SCH (10:10)
[2020-03-27] MEDS: APIXABAN 2.5 MG TABLET PO SCH ×2 (10:10→21:56)
[2020-03-27] MEDS: MEMANTINE HCL 5 MG TABLET (UD) PO SCH ×2 (10:10→21:56)
[2020-03-27] MEDS: ASCORBIC ACID 500 MG TABLET (FP) PO SCH ×2 (10:10→21:56)
[2020-03-27] MEDS: ATORVASTATIN CA 20 MG TABLET (FP) PO SCH (10:10)
[2020-03-27] MEDS: METOPROLOL TARTRATE 25 MG TABLET (FP) PO SCH ×2 (13:03→21:55)
[2020-03-27] MEDS: DAPTOMYCIN 450 MG in SODIUM CHLORIDE 50 ML IVPB SCH (15:39)
[2020-03-27] MEDS: QUEtiapine FUMARATE 25 MG TABLET PO PRN (21:57)
[2020-03-28] MEDS ORDERED: MEROPENEM 1 GM VIAL (RESTRICTED TO ID) IVPB ONE ×2 (03:54→11:23)
[2020-03-28] MEDS ORDERED: DEXTROSE 5%-WATER 100 ML IVPB ONE ×2 (03:55→11:23)
[2020-03-28] MEDS: MEROPENEM 1 GM in DEXTROSE 5%-WATER 100 ML IVPB SCH ×3 (03:57→17:53)
[2020-03-28] MEDS: INSULIN SLIDING SCALE (NOVOLOG) 1 VIAL SQ SCH ×5 (07:46→23:00)
[2020-03-28 08:00] LABS: BASO % 0.7 % (0-2.0); EOS % 3.8 % (0-4.5); HEMATOCRIT 32.5 % (35.4-49); HEMOGLOBIN 11.2 GM/dL (11.7-16.9); LYMPH % 30.3 % (8-40); MCH 31.7 pg (25.7-33.7); MCHC 34.5 g/dl (32.0-35.9); MEAN CELL VOLUME 91.6 fl (80-96); MEAN PLT VOLUME 8.8 fl (7.5-11.1); MONO % 13.8 % (3.8-10.2); NEUT % 51.4 % (42.8-82.8); PLATELET COUNT 218 K/MM3 (134-434); RBC 3.54 M/mm3 (4.00-5.60); RDW 15.2 % (11.9-15.9); WHITE BLOOD COUNT 5.9 K/mm3 (4.0-10.0)
[2020-03-28 08:19] LABS: CALCIUM 9.4 mg/dL (8.5-10.1)
[2020-03-28 08:20] LABS: ALBUMIN 2.7 g/dl (3.4-5.0); BLOOD UREA NITROGEN 18.9 mg/dL (7-18); MAGNESIUM 2.1 mg/dL (1.8-2.4)
[2020-03-28 08:23] LABS: CREATININE 0.9 mg/dL (0.55-1.3)
[2020-03-28 08:25] LABS: BILIRUBIN,TOTAL 0.6 mg/dL (0.2-1); TOT PROT 6.5 g/dl (6.4-8.2)
[2020-03-28] MEDS: METOPROLOL TARTRATE 25 MG TABLET (FP) PO SCH (09:42)
[2020-03-28] MEDS: ASCORBIC ACID 500 MG TABLET (FP) PO SCH ×3 (09:42→21:58)
[2020-03-28] MEDS: APIXABAN 2.5 MG TABLET PO SCH ×2 (09:43→21:58)
[2020-03-28] MEDS: DIGOXIN 0.125 MG TABLET PO SCH (09:43)
[2020-03-28] MEDS: MEMANTINE HCL 5 MG TABLET (UD) PO SCH ×3 (09:43→21:58)
[2020-03-28] MEDS: ATORVASTATIN CA 20 MG TABLET (FP) PO SCH (09:43)
[2020-03-28] MEDS ORDERED: POTASSIUM CHLORIDE TABS 20 MEQ TABLET.ER (FP) PO ONE (09:45)
[2020-03-28] MEDS: DEXTROSE 5%-0.45% SALINE 1,000 ML IV SCH ×3 (12:12→20:13)
[2020-03-28] MEDS ORDERED: METOPROLOL TARTRATE 25 MG TABLET (FP) PO SCH (13:06)
[2020-03-28] MEDS: DAPTOMYCIN 450 MG in SODIUM CHLORIDE 50 ML IVPB SCH (16:10)
[2020-03-28] MEDS ORDERED: PT OWN MED DRAWER 7, Y5N ONE (20:07)
[2020-03-28] MEDS: QUEtiapine FUMARATE 25 MG TABLET PO PRN (20:37)
[2020-03-29] MEDS ORDERED: DEXTROSE 5%-WATER 100 ML IVPB ONE ×2 (03:23→09:26)
[2020-03-29] MEDS ORDERED: MEROPENEM 1 GM VIAL (RESTRICTED TO ID) IVPB ONE ×2 (03:23→09:25)
[2020-03-29] MEDS: MEROPENEM 1 GM in DEXTROSE 5%-WATER 100 ML IVPB SCH ×3 (03:31→18:31)
[2020-03-29] MEDS: INSULIN SLIDING SCALE (NOVOLOG) 1 VIAL SQ SCH ×4 (07:00→21:44)
[2020-03-29 07:06] LABS: BASO % 0.7 % (0-2.0); EOS % 4.8 % (0-4.5); HEMATOCRIT 30.8 % (35.4-49); HEMOGLOBIN 10.5 GM/dL (11.7-16.9); LYMPH % 35.3 % (8-40); MCH 31.5 pg (25.7-33.7); MCHC 33.9 g/dl (32.0-35.9); MEAN CELL VOLUME 92.8 fl (80-96); MEAN PLT VOLUME 8.5 fl (7.5-11.1); NEUT % 45.2 % (42.8-82.8); PLATELET COUNT 202 K/MM3 (134-434); RBC 3.32 M/mm3 (4.00-5.60); RDW 15.5 % (11.9-15.9); WHITE BLOOD COUNT 5.1 K/mm3 (4.0-10.0)
[2020-03-29 07:34] LABS: ALBUMIN 2.4 g/dl (3.4-5.0); BLOOD UREA NITROGEN 16.2 mg/dL (7-18); CALCIUM 8.9 mg/dL (8.5-10.1)
[2020-03-29 07:35] LABS: MAGNESIUM 1.9 mg/dL (1.8-2.4)
[2020-03-29 07:37] LABS: CREATININE 0.8 mg/dL (0.55-1.3)
[2020-03-29 07:39] LABS: BILIRUBIN,TOTAL 0.5 mg/dL (0.2-1); TOT PROT 6.1 g/dl (6.4-8.2)
[2020-03-29] MEDS: MEMANTINE HCL 5 MG TABLET (UD) PO SCH ×2 (11:06→21:14)
[2020-03-29] MEDS: ASCORBIC ACID 500 MG TABLET (FP) PO SCH ×2 (11:06→21:14)
[2020-03-29] MEDS: DIGOXIN 0.125 MG TABLET PO SCH (11:06)
[2020-03-29] MEDS: APIXABAN 2.5 MG TABLET PO SCH ×2 (11:06→21:15)
[2020-03-29] MEDS: ATORVASTATIN CA 20 MG TABLET (FP) PO SCH (11:06)
[2020-03-29] MEDS: DAPTOMYCIN 450 MG in SODIUM CHLORIDE 50 ML IVPB SCH (16:26)
[2020-03-29] MEDS: DEXTROSE 5%-0.45% SALINE 1,000 ML IV SCH (21:07)
[2020-03-29] MEDS: QUEtiapine FUMARATE 25 MG TABLET PO PRN (21:15)
[2020-03-30] MEDS ORDERED: MEROPENEM 1 GM VIAL (RESTRICTED TO ID) IVPB ONE ×3 (01:35→16:32)
[2020-03-30] MEDS ORDERED: DEXTROSE 5%-WATER 100 ML IVPB ONE ×3 (01:36→16:33)
[2020-03-30] MEDS: MEROPENEM 1 GM in DEXTROSE 5%-WATER 100 ML IVPB SCH ×3 (01:44→17:05)
[2020-03-30] MEDS: DIGOXIN 0.125 MG TABLET PO SCH (09:47)
[2020-03-30] MEDS: ASCORBIC ACID 500 MG TABLET (FP) PO SCH ×2 (09:48→21:35)
[2020-03-30] MEDS: ATORVASTATIN CA 20 MG TABLET (FP) PO SCH (09:48)
[2020-03-30] MEDS: MEMANTINE HCL 5 MG TABLET (UD) PO SCH ×2 (09:48→21:35)
[2020-03-30] MEDS: APIXABAN 2.5 MG TABLET PO SCH ×2 (09:48→21:35)
[2020-03-30] MEDS: INSULIN SLIDING SCALE (NOVOLOG) 1 VIAL SQ SCH ×3 (11:59→21:36)
[2020-03-30] MEDS: DAPTOMYCIN 450 MG in SODIUM CHLORIDE 50 ML IVPB SCH (15:30)
[2020-03-30] MEDS: DEXTROSE 5%-0.45% SALINE 1,000 ML IV SCH ×2 (18:42→21:36)
[2020-03-30] MEDS: QUEtiapine FUMARATE 25 MG TABLET PO PRN (21:35)
[2020-03-31] MEDS ORDERED: MEROPENEM 1 GM VIAL (RESTRICTED TO ID) IVPB ONE ×3 (02:15→17:52)
[2020-03-31] MEDS ORDERED: DEXTROSE 5%-WATER 100 ML IVPB ONE ×3 (02:16→17:52)
[2020-03-31] MEDS: MEROPENEM 1 GM in DEXTROSE 5%-WATER 100 ML IVPB SCH ×3 (02:38→17:52)
[2020-03-31] MEDS: INSULIN SLIDING SCALE (NOVOLOG) 1 VIAL SQ SCH ×4 (06:55→21:22)
[2020-03-31] MEDS: AMINO ACIDS/PROTEIN HYDROLYS 30 ML LIQUID.PKT PO SCH ×2 (10:25→17:15)
[2020-03-31] MEDS: ASCORBIC ACID 500 MG TABLET (FP) PO SCH ×2 (10:25→21:02)
[2020-03-31] MEDS: APIXABAN 2.5 MG TABLET PO SCH ×2 (10:25→21:02)
[2020-03-31] MEDS: ATORVASTATIN CA 20 MG TABLET (FP) PO SCH (10:25)
[2020-03-31] MEDS: MEMANTINE HCL 5 MG TABLET (UD) PO SCH ×2 (10:25→21:02)
[2020-03-31] MEDS: DIGOXIN 0.125 MG TABLET PO SCH (10:25)
[2020-03-31 12:18] LABS: BASO % 0.6 % (0-2.0); EOS % 5.2 % (0-4.5); HEMOGLOBIN 10.6 GM/dL (11.7-16.9); LYMPH % 26.9 % (8-40); MCH 31.4 pg (25.7-33.7); MCHC 34.3 g/dl (32.0-35.9); MEAN CELL VOLUME 91.7 fl (80-96); MEAN PLT VOLUME 8.4 fl (7.5-11.1); MONO % 13.3 % (3.8-10.2); PLATELET COUNT 208 K/MM3 (134-434); RBC 3.38 M/mm3 (4.00-5.60); RDW 15.1 % (11.9-15.9); WHITE BLOOD COUNT 5.4 K/mm3 (4.0-10.0)
[2020-03-31 12:38] LABS: ALBUMIN 2.4 g/dl (3.4-5.0); CALCIUM 9.1 mg/dL (8.5-10.1)
[2020-03-31 12:39] LABS: BLOOD UREA NITROGEN 12.4 mg/dL (7-18); MAGNESIUM 2.1 mg/dL (1.8-2.4)
[2020-03-31 12:41] LABS: CREATININE 0.7 mg/dL (0.55-1.3)
[2020-03-31 12:43] LABS: BILIRUBIN,TOTAL 0.4 mg/dL (0.2-1); TOT PROT 6.1 g/dl (6.4-8.2)
[2020-03-31] MEDS ORDERED: PT OWN MED DRAWER 7, Y5N ONE (16:35)
[2020-03-31] MEDS: DAPTOMYCIN 450 MG in SODIUM CHLORIDE 50 ML IVPB SCH (16:36)
[2020-03-31 16:37] LABS: EPI CELLS >36 /uL (0-25.1); HYALINE CASTS 3 /uL (0-3.1); URINE APPEARANCE CLEAR; URINE BACTERIA 33 /uL (0-1359); URINE BILIRUBIN NEGATIVE (NEGATIVE); URINE COLOR YELLOW; URINE GLUCOSE (UA) NEGATIVE (NEGATIVE); URINE KETONE NEGATIVE (NEGATIVE); URINE LEUK ESTERASE 2+ (NEGATIVE); URINE NITRITE NEGATIVE (NEGATIVE); URINE PROTEIN 2+ (NEGATIVE); URINE UROBILINOGEN 0.2 mg/dL (0.2-1.0); URINE WBC 154 /uL (0-25.8)
[2020-03-31 18:01] LABS: URINE RBC 1771.5 /uL (0-23.9)
[2020-03-31] MEDS: DEXTROSE 5%-0.45% SALINE 1,000 ML IV SCH (21:01)
[2020-03-31] MEDS: QUEtiapine FUMARATE 25 MG TABLET PO PRN (21:02)
[2020-04-01] MEDS ORDERED: MEROPENEM 1 GM VIAL (RESTRICTED TO ID) IVPB ONE ×3 (02:09→17:12)
[2020-04-01] MEDS ORDERED: DEXTROSE 5%-WATER 100 ML IVPB ONE ×3 (02:09→17:12)
[2020-04-01] MEDS: MEROPENEM 1 GM in DEXTROSE 5%-WATER 100 ML IVPB SCH ×3 (02:20→17:18)
[2020-04-01] MEDS: INSULIN SLIDING SCALE (NOVOLOG) 1 VIAL SQ SCH ×4 (07:05→22:42)
[2020-04-01] MEDS: DIGOXIN 0.125 MG TABLET PO SCH (09:24)
[2020-04-01] MEDS: AMINO ACIDS/PROTEIN HYDROLYS 30 ML LIQUID.PKT PO SCH ×2 (09:24→16:46)
[2020-04-01] MEDS: MEMANTINE HCL 5 MG TABLET (UD) PO SCH ×2 (09:25→22:35)
[2020-04-01] MEDS: ATORVASTATIN CA 20 MG TABLET (FP) PO SCH (09:25)
[2020-04-01] MEDS: APIXABAN 2.5 MG TABLET PO SCH ×2 (09:25→22:35)
[2020-04-01] MEDS: ASCORBIC ACID 500 MG TABLET (FP) PO SCH ×2 (09:25→22:35)
[2020-04-01] MEDS ORDERED: PT OWN MED DRAWER 7, Y5N ONE (09:26)
[2020-04-01] MEDS: DAPTOMYCIN 450 MG in SODIUM CHLORIDE 50 ML IVPB SCH (15:10)
[2020-04-01] MEDS: DEXTROSE 5%-0.45% SALINE 1,000 ML IV SCH (20:34)
[2020-04-02] MEDS ORDERED: MEROPENEM 1 GM VIAL (RESTRICTED TO ID) IVPB ONE ×3 (00:57→16:18)
[2020-04-02] MEDS ORDERED: DEXTROSE 5%-WATER 100 ML IVPB ONE ×3 (00:57→16:19)
[2020-04-02] MEDS: MEROPENEM 1 GM in DEXTROSE 5%-WATER 100 ML IVPB SCH ×3 (01:03→17:14)
[2020-04-02] MEDS: DEXTROSE 5%-0.45% SALINE 1,000 ML IV SCH ×2 (01:12→21:12)
[2020-04-02] MEDS: INSULIN SLIDING SCALE (NOVOLOG) 1 VIAL SQ SCH ×4 (06:25→21:13)
[2020-04-02 07:48] LABS: BLOOD UREA NITROGEN 14.5 mg/dL (7-18); CALCIUM 9.1 mg/dL (8.5-10.1)
[2020-04-02 07:52] LABS: CREATININE 0.7 mg/dL (0.55-1.3)
[2020-04-02 08:11] LABS: BASO % 0.6 % (0-2.0); EOS % 3.3 % (0-4.5); HEMATOCRIT 34.2 % (35.4-49); HEMOGLOBIN 11.9 GM/dL (11.7-16.9); MCH 31.7 pg (25.7-33.7); MCHC 34.9 g/dl (32.0-35.9); MEAN CELL VOLUME 90.7 fl (80-96); MONO % 10.1 % (3.8-10.2); PLATELET COUNT 254 K/MM3 (134-434); RBC 3.77 M/mm3 (4.00-5.60); RDW 14.7 % (11.9-15.9); WHITE BLOOD COUNT 6.1 K/mm3 (4.0-10.0)
[2020-04-02] MEDS: APIXABAN 2.5 MG TABLET PO SCH ×2 (09:48→21:14)
[2020-04-02] MEDS: AMINO ACIDS/PROTEIN HYDROLYS 30 ML LIQUID.PKT PO SCH ×2 (09:48→17:14)
[2020-04-02] MEDS: MEMANTINE HCL 5 MG TABLET (UD) PO SCH ×2 (09:48→21:14)
[2020-04-02] MEDS: ATORVASTATIN CA 20 MG TABLET (FP) PO SCH (09:48)
[2020-04-02] MEDS: DIGOXIN 0.125 MG TABLET PO SCH (09:49)
[2020-04-02] MEDS: ASCORBIC ACID 500 MG TABLET (FP) PO SCH ×2 (09:49→21:14)
[2020-04-02] MEDS ORDERED: PT OWN MED DRAWER 7, Y5N ONE ×2 (16:19→16:29)
[2020-04-02] MEDS: DAPTOMYCIN 450 MG in SODIUM CHLORIDE 50 ML IVPB SCH (18:02)
[2020-04-03] MEDS ORDERED: MEROPENEM 1 GM VIAL (RESTRICTED TO ID) IVPB ONE ×2 (01:53→16:39)
[2020-04-03] MEDS ORDERED: DEXTROSE 5%-WATER 100 ML IVPB ONE ×2 (01:54→16:39)
[2020-04-03] MEDS: MEROPENEM 1 GM in DEXTROSE 5%-WATER 100 ML IVPB SCH ×3 (01:59→17:38)
[2020-04-03] MEDS: INSULIN SLIDING SCALE (NOVOLOG) 1 VIAL SQ SCH ×4 (06:32→21:12)
[2020-04-03] MEDS: DEXTROSE 5%-0.45% SALINE 1,000 ML IV SCH ×2 (10:57→21:12)
[2020-04-03] MEDS: AMINO ACIDS/PROTEIN HYDROLYS 30 ML LIQUID.PKT PO SCH ×2 (11:10→17:38)
[2020-04-03] MEDS: MEMANTINE HCL 5 MG TABLET (UD) PO SCH ×2 (11:11→21:33)
[2020-04-03] MEDS: ASCORBIC ACID 500 MG TABLET (FP) PO SCH ×2 (11:11→21:33)
[2020-04-03] MEDS: APIXABAN 2.5 MG TABLET PO SCH ×2 (11:11→21:33)
[2020-04-03] MEDS: ATORVASTATIN CA 20 MG TABLET (FP) PO SCH (14:14)
[2020-04-03] MEDS: DIGOXIN 0.125 MG TABLET PO SCH (14:14)
[2020-04-03] MEDS: DAPTOMYCIN 450 MG in SODIUM CHLORIDE 50 ML IVPB SCH (15:23)
[2020-04-03 20:09] LABS: BASO % 0.5 % (0-2.0); EOS % 3.9 % (0-4.5); HEMATOCRIT 32.5 % (35.4-49); HEMOGLOBIN 11.2 GM/dL (11.7-16.9); LYMPH % 20.6 % (8-40); MCH 31.4 pg (25.7-33.7); MCHC 34.3 g/dl (32.0-35.9); MEAN CELL VOLUME 91.5 fl (80-96); MEAN PLT VOLUME 8.7 fl (7.5-11.1); MONO % 12.4 % (3.8-10.2); NEUT % 62.6 % (42.8-82.8); PLATELET COUNT 255 K/MM3 (134-434); RBC 3.56 M/mm3 (4.00-5.60); RDW 14.8 % (11.9-15.9); WHITE BLOOD COUNT 6.5 K/mm3 (4.0-10.0)
[2020-04-03 20:32] LABS: ALBUMIN 2.7 g/dl (3.4-5.0); BLOOD UREA NITROGEN 14.2 mg/dL (7-18); CALCIUM 8.8 mg/dL (8.5-10.1)
[2020-04-03 20:33] LABS: CREATININE 0.7 mg/dL (0.55-1.3)
[2020-04-03 20:35] LABS: BILIRUBIN,TOTAL 0.4 mg/dL (0.2-1); TOT PROT 6.4 g/dl (6.4-8.2)
[2020-04-04] MEDS ORDERED: MEROPENEM 1 GM VIAL (RESTRICTED TO ID) IVPB ONE ×3 (00:07→16:16)
[2020-04-04] MEDS ORDERED: DEXTROSE 5%-WATER 100 ML IVPB ONE ×3 (00:07→16:16)
[2020-04-04] MEDS: MEROPENEM 1 GM in DEXTROSE 5%-WATER 100 ML IVPB SCH ×3 (01:13→17:00)
[2020-04-04] MEDS: INSULIN SLIDING SCALE (NOVOLOG) 1 VIAL SQ SCH ×4 (06:26→21:50)
[2020-04-04 10:03] LABS: BASO % 0.9 % (0-2.0); EOS % 5.2 % (0-4.5); HEMATOCRIT 32.4 % (35.4-49); HEMOGLOBIN 11.3 GM/dL (11.7-16.9); LYMPH % 29.7 % (8-40); MCH 31.8 pg (25.7-33.7); MCHC 34.9 g/dl (32.0-35.9); MEAN CELL VOLUME 91.1 fl (80-96); MEAN PLT VOLUME 8.9 fl (7.5-11.1); MONO % 13.9 % (3.8-10.2); NEUT % 50.3 % (42.8-82.8); PLATELET COUNT 256 K/MM3 (134-434); RBC 3.56 M/mm3 (4.00-5.60); RDW 14.8 % (11.9-15.9); WHITE BLOOD COUNT 6.8 K/mm3 (4.0-10.0)
[2020-04-04 10:29] LABS: CALCIUM 9.2 mg/dL (8.5-10.1)
[2020-04-04 10:30] LABS: ALBUMIN 2.6 g/dl (3.4-5.0); BLOOD UREA NITROGEN 17.3 mg/dL (7-18)
[2020-04-04 10:33] LABS: CREATININE 0.7 mg/dL (0.55-1.3)
[2020-04-04 10:35] LABS: BILIRUBIN,TOTAL 0.4 mg/dL (0.2-1); TOT PROT 6.3 g/dl (6.4-8.2)
[2020-04-04] MEDS: AMINO ACIDS/PROTEIN HYDROLYS 30 ML LIQUID.PKT PO SCH ×2 (10:44→16:42)
[2020-04-04] MEDS: ASCORBIC ACID 500 MG TABLET (FP) PO SCH ×2 (10:44→21:50)
[2020-04-04] MEDS: APIXABAN 2.5 MG TABLET PO SCH (10:45)
[2020-04-04] MEDS: DIGOXIN 0.125 MG TABLET PO SCH (10:45)
[2020-04-04] MEDS: MEMANTINE HCL 5 MG TABLET (UD) PO SCH ×2 (10:45→21:49)
[2020-04-04] MEDS: ATORVASTATIN CA 20 MG TABLET (FP) PO SCH (10:45)
[2020-04-04] MEDS: DEXTROSE 5%-0.45% SALINE 1,000 ML IV SCH (19:50)
[2020-04-04] MEDS: QUEtiapine FUMARATE 25 MG TABLET PO PRN (21:56)
[2020-04-05] MEDS ORDERED: DEXTROSE 5%-WATER 100 ML IVPB ONE ×3 (00:54→16:44)
[2020-04-05] MEDS ORDERED: MEROPENEM 1 GM VIAL (RESTRICTED TO ID) IVPB ONE ×3 (00:54→16:44)
[2020-04-05] MEDS: MEROPENEM 1 GM in DEXTROSE 5%-WATER 100 ML IVPB SCH ×3 (01:14→17:23)
[2020-04-05] MEDS: INSULIN SLIDING SCALE (NOVOLOG) 1 VIAL SQ SCH ×4 (06:24→22:25)
[2020-04-05] MEDS: AMINO ACIDS/PROTEIN HYDROLYS 30 ML LIQUID.PKT PO SCH ×2 (08:35→18:35)
[2020-04-05] MEDS: MEMANTINE HCL 5 MG TABLET (UD) PO SCH ×2 (09:11→22:28)
[2020-04-05] MEDS: ASCORBIC ACID 500 MG TABLET (FP) PO SCH ×2 (09:11→22:28)
[2020-04-05] MEDS: ATORVASTATIN CA 20 MG TABLET (FP) PO SCH (09:11)
[2020-04-05] MEDS: DIGOXIN 0.125 MG TABLET PO SCH (09:12)
[2020-04-05 14:20] LABS: BASO % 0.6 % (0-2.0); EOS % 5.3 % (0-4.5); HEMATOCRIT 30.2 % (35.4-49); HEMOGLOBIN 10.5 GM/dL (11.7-16.9); LYMPH % 26.6 % (8-40); MCH 31.9 pg (25.7-33.7); MCHC 34.8 g/dl (32.0-35.9); MEAN CELL VOLUME 91.6 fl (80-96); MEAN PLT VOLUME 8.6 fl (7.5-11.1); MONO % 13.1 % (3.8-10.2); NEUT % 54.4 % (42.8-82.8); PLATELET COUNT 234 K/MM3 (134-434); RBC 3.29 M/mm3 (4.00-5.60); RDW 14.5 % (11.9-15.9); WHITE BLOOD COUNT 7.4 K/mm3 (4.0-10.0)
[2020-04-05 14:40] LABS: ALBUMIN 2.5 g/dl (3.4-5.0); BLOOD UREA NITROGEN 23.2 mg/dL (7-18); CALCIUM 8.8 mg/dL (8.5-10.1); MAGNESIUM 1.9 mg/dL (1.8-2.4)
[2020-04-05 14:43] LABS: CREATININE 0.8 mg/dL (0.55-1.3)
[2020-04-05 14:44] LABS: BILIRUBIN,TOTAL 0.8 mg/dL (0.2-1); TOT PROT 6.4 g/dl (6.4-8.2)
[2020-04-05] MEDS: DEXTROSE 5%-0.45% SALINE 1,000 ML IV SCH (22:31)
[2020-04-06] MEDS ORDERED: MEROPENEM 1 GM VIAL (RESTRICTED TO ID) IVPB ONE ×3 (01:12→18:16)
[2020-04-06] MEDS ORDERED: DEXTROSE 5%-WATER 100 ML IVPB ONE ×3 (01:12→18:16)
[2020-04-06] MEDS: DEXTROSE 5%-0.45% SALINE 1,000 ML IV SCH ×2 (01:27→19:04)
[2020-04-06] MEDS: MEROPENEM 1 GM in DEXTROSE 5%-WATER 100 ML IVPB SCH ×3 (01:27→18:54)
[2020-04-06] MEDS: INSULIN SLIDING SCALE (NOVOLOG) 1 VIAL SQ SCH ×4 (06:06→21:42)
[2020-04-06] MEDS: ASCORBIC ACID 500 MG TABLET (FP) PO SCH ×2 (10:25→21:45)
[2020-04-06] MEDS: DIGOXIN 0.125 MG TABLET PO SCH (10:25)
[2020-04-06] MEDS: ATORVASTATIN CA 20 MG TABLET (FP) PO SCH (10:25)
[2020-04-06] MEDS: AMINO ACIDS/PROTEIN HYDROLYS 30 ML LIQUID.PKT PO SCH ×2 (10:25→18:19)
[2020-04-06] MEDS: MEMANTINE HCL 5 MG TABLET (UD) PO SCH ×2 (10:25→21:45)
[2020-04-06] MEDS ORDERED: HEPARIN NA (PORCINE) 5,000 UNITS/ML 1ML VIAL IVPUSH PRN ×2 (13:06)
[2020-04-06] MEDS: HEPARIN - 25,000 UNIT in SODIUM CHLORIDE 495 ML IV SCH (17:24)
[2020-04-07] MEDS ORDERED: MEROPENEM 1 GM VIAL (RESTRICTED TO ID) IVPB ONE ×3 (01:14→17:11)
[2020-04-07] MEDS ORDERED: DEXTROSE 5%-WATER 100 ML IVPB ONE ×3 (01:15→17:11)
[2020-04-07] MEDS: MEROPENEM 1 GM in DEXTROSE 5%-WATER 100 ML IVPB SCH ×3 (01:17→17:17)
[2020-04-07] MEDS: QUEtiapine FUMARATE 25 MG TABLET PO PRN (01:24)
[2020-04-07] MEDS: INSULIN SLIDING SCALE (NOVOLOG) 1 VIAL SQ SCH ×4 (06:01→22:27)
[2020-04-07 06:55] LABS: BASO % 0.8 % (0-2.0); EOS % 5.7 % (0-4.5); HEMATOCRIT 30.2 % (35.4-49); HEMOGLOBIN 10.6 GM/dL (11.7-16.9); LYMPH % 34.3 % (8-40); MCH 31.6 pg (25.7-33.7); MCHC 34.9 g/dl (32.0-35.9); MEAN CELL VOLUME 90.6 fl (80-96); MEAN PLT VOLUME 9.6 fl (7.5-11.1); MONO % 10.4 % (3.8-10.2); NEUT % 48.8 % (42.8-82.8); PLATELET COUNT 231 K/MM3 (134-434); RBC 3.34 M/mm3 (4.00-5.60); RDW 14.6 % (11.9-15.9); WHITE BLOOD COUNT 5.7 K/mm3 (4.0-10.0)
[2020-04-07 07:00] LABS: CALCIUM 8.9 mg/dL (8.5-10.1)
[2020-04-07 07:01] LABS: ALBUMIN 2.5 g/dl (3.4-5.0); BLOOD UREA NITROGEN 19.8 mg/dL (7-18)
[2020-04-07 07:04] LABS: CREATININE 0.6 mg/dL (0.55-1.3)
[2020-04-07 07:06] LABS: BILIRUBIN,TOTAL 0.5 mg/dL (0.2-1); TOT PROT 6.2 g/dl (6.4-8.2)
[2020-04-07] MEDS: HEPARIN - 25,000 UNIT in SODIUM CHLORIDE 495 ML IV SCH (08:24)
[2020-04-07 08:35] LABS: INR 1.27 (0.83-1.09); PROTHROMBIN TIME (PATIENT) 15.5 SEC (9.7-13.0)
[2020-04-07] MEDS: ASCORBIC ACID 500 MG TABLET (FP) PO SCH ×2 (10:25→22:26)
[2020-04-07] MEDS: DIGOXIN 0.125 MG TABLET PO SCH (10:25)
[2020-04-07] MEDS: ATORVASTATIN CA 20 MG TABLET (FP) PO SCH (10:25)
[2020-04-07] MEDS: MEMANTINE HCL 5 MG TABLET (UD) PO SCH ×2 (10:25→22:26)
[2020-04-07] MEDS: AMINO ACIDS/PROTEIN HYDROLYS 30 ML LIQUID.PKT PO SCH ×2 (10:27→17:19)
[2020-04-07] MEDS: APIXABAN 2.5 MG TABLET PO SCH (22:26)
[2020-04-08] MEDS ORDERED: MEROPENEM 1 GM VIAL (RESTRICTED TO ID) IVPB ONE ×3 (02:29→16:44)
[2020-04-08] MEDS ORDERED: DEXTROSE 5%-WATER 100 ML IVPB ONE ×3 (02:30→16:44)
[2020-04-08] MEDS: MEROPENEM 1 GM in DEXTROSE 5%-WATER 100 ML IVPB SCH ×3 (02:38→17:01)
[2020-04-08] MEDS: INSULIN SLIDING SCALE (NOVOLOG) 1 VIAL SQ SCH ×4 (06:33→22:19)
[2020-04-08] MEDS: AMINO ACIDS/PROTEIN HYDROLYS 30 ML LIQUID.PKT PO SCH ×2 (08:27→17:00)
[2020-04-08] MEDS: HEPARIN - 25,000 UNIT in SODIUM CHLORIDE 495 ML IV SCH (08:28)
[2020-04-08 09:54] LABS: BASO % 0.8 % (0-2.0); EOS % 5.3 % (0-4.5); HEMATOCRIT 31.9 % (35.4-49); HEMOGLOBIN 11.2 GM/dL (11.7-16.9); LYMPH % 31.1 % (8-40); MCH 31.7 pg (25.7-33.7); MCHC 35.1 g/dl (32.0-35.9); MEAN CELL VOLUME 90.5 fl (80-96); MEAN PLT VOLUME 8.8 fl (7.5-11.1); MONO % 10.8 % (3.8-10.2); PLATELET COUNT 251 K/MM3 (134-434); RBC 3.52 M/mm3 (4.00-5.60); RDW 14.4 % (11.9-15.9)
[2020-04-08] MEDS: MEMANTINE HCL 5 MG TABLET (UD) PO SCH ×2 (10:12→22:19)
[2020-04-08] MEDS: APIXABAN 2.5 MG TABLET PO SCH (10:12)
[2020-04-08] MEDS: DIGOXIN 0.125 MG TABLET PO SCH (10:13)
[2020-04-08] MEDS: ATORVASTATIN CA 20 MG TABLET (FP) PO SCH (10:13)
[2020-04-08] MEDS: ASCORBIC ACID 500 MG TABLET (FP) PO SCH ×2 (10:13→22:20)
[2020-04-08 10:17] LABS: CALCIUM 9.1 mg/dL (8.5-10.1)
[2020-04-08 10:18] LABS: ALBUMIN 2.6 g/dl (3.4-5.0)
[2020-04-08 10:21] LABS: CREATININE 0.7 mg/dL (0.55-1.3)
[2020-04-08 10:22] LABS: BILIRUBIN,TOTAL 0.6 mg/dL (0.2-1); TOT PROT 6.4 g/dl (6.4-8.2)
[2020-04-09] MEDS: INSULIN SLIDING SCALE (NOVOLOG) 1 VIAL SQ SCH ×4 (06:49→22:03)
[2020-04-09] MEDS: AMINO ACIDS/PROTEIN HYDROLYS 30 ML LIQUID.PKT PO SCH ×2 (09:03→17:13)
[2020-04-09] MEDS: ATORVASTATIN CA 20 MG TABLET (FP) PO SCH (09:12)
[2020-04-09] MEDS: DIGOXIN 0.125 MG TABLET PO SCH (09:12)
[2020-04-09] MEDS: ASCORBIC ACID 500 MG TABLET (FP) PO SCH ×2 (09:12→22:03)
[2020-04-09] MEDS: MEMANTINE HCL 5 MG TABLET (UD) PO SCH ×2 (09:12→22:03)
[2020-04-09 09:16] LABS: BASO % 0.6 % (0-2.0); EOS % 4.2 % (0-4.5); HEMATOCRIT 31.2 % (35.4-49); HEMOGLOBIN 10.9 GM/dL (11.7-16.9); LYMPH % 29.3 % (8-40); MCH 31.4 pg (25.7-33.7); MCHC 34.8 g/dl (32.0-35.9); MEAN CELL VOLUME 90.3 fl (80-96); MONO % 10.9 % (3.8-10.2); PLATELET COUNT 248 K/MM3 (134-434); RBC 3.46 M/mm3 (4.00-5.60); RDW 14.6 % (11.9-15.9); WHITE BLOOD COUNT 6.2 K/mm3 (4.0-10.0)
[2020-04-09 09:46] LABS: BILIRUBIN,TOTAL 0.7 mg/dL (0.2-1); TOT PROT 6.6 g/dl (6.4-8.2)
[2020-04-09 09:53] LABS: ALBUMIN 2.7 g/dl (3.4-5.0)
[2020-04-09 09:54] LABS: BLOOD UREA NITROGEN 23.9 mg/dL (7-18); CALCIUM 9.3 mg/dL (8.5-10.1)
[2020-04-09 10:00] LABS: CREATININE 0.8 mg/dL (0.55-1.3)
[2020-04-09] MEDS ORDERED: PT OWN MED DRAWER 7, Y5N ONE (17:02)
[2020-04-09] MEDS: QUEtiapine FUMARATE 25 MG TABLET PO PRN (23:06)
[2020-04-10] MEDS ORDERED: METOPROLOL TARTRATE 5 MG/5 ML VIAL IVPUSH PRN (05:37)
[2020-04-10] MEDS ORDERED: QUEtiapine FUMARATE 25 MG TABLET PO PRN (05:37)
[2020-04-10] MEDS ORDERED: HEPARIN - 25,000 UNIT in SODIUM CHLORIDE 495 ML IV SCH (05:37)
[2020-04-10] MEDS: INSULIN SLIDING SCALE (NOVOLOG) 1 VIAL SQ SCH ×4 (07:08→22:09)
[2020-04-10] MEDS: MEMANTINE HCL 5 MG TABLET (UD) PO SCH ×2 (09:09→22:08)
[2020-04-10] MEDS: DIGOXIN 0.125 MG TABLET PO SCH (09:09)
[2020-04-10 09:15] LABS: BASO % 0.8 % (0-2.0); EOS % 4.9 % (0-4.5); HEMATOCRIT 32.1 % (35.4-49); HEMOGLOBIN 11.1 GM/dL (11.7-16.9); LYMPH % 37.3 % (8-40); MCH 31.6 pg (25.7-33.7); MCHC 34.4 g/dl (32.0-35.9); MEAN CELL VOLUME 91.9 fl (80-96); MEAN PLT VOLUME 9.1 fl (7.5-11.1); PLATELET COUNT 247 K/MM3 (134-434); RDW 14.4 % (11.9-15.9); WHITE BLOOD COUNT 5.7 K/mm3 (4.0-10.0)
[2020-04-10] MEDS: ASCORBIC ACID 500 MG TABLET (FP) PO SCH ×2 (09:16→22:08)
[2020-04-10] MEDS: AMINO ACIDS/PROTEIN HYDROLYS 30 ML LIQUID.PKT PO SCH ×3 (09:16→19:13)
[2020-04-10 09:18] LABS: INR 1.2 (0.83-1.09); PROTHROMBIN TIME (PATIENT) 14.4 SEC (9.7-13.0)
[2020-04-10 09:34] LABS: ALBUMIN 2.7 g/dl (3.4-5.0); BLOOD UREA NITROGEN 26.1 mg/dL (7-18); CREATININE 0.7 mg/dL (0.55-1.3); MAGNESIUM 2.2 mg/dL (1.8-2.4)
[2020-04-10 09:35] LABS: BILIRUBIN,TOTAL 0.5 mg/dL (0.2-1)
[2020-04-10 09:36] LABS: TOT PROT 6.6 g/dl (6.4-8.2)
[2020-04-10] MEDS ORDERED: ATORVASTATIN CA 20 MG TABLET (FP) PO SCH (22:00)
[2020-04-11] MEDS ORDERED: LACTATED RINGERS SOLUTION 1,000 ML/1,000 ML INFUS.BAG IV SCH ×2 (00:01→16:47)
[2020-04-11] MEDS: INSULIN SLIDING SCALE (NOVOLOG) 1 VIAL SQ SCH ×4 (06:07→21:31)
[2020-04-11 09:32] LABS: BASO % 0.6 % (0-2.0); EOS % 5.1 % (0-4.5); HEMATOCRIT 31.4 % (35.4-49); HEMOGLOBIN 10.7 GM/dL (11.7-16.9); LYMPH % 31.9 % (8-40); MCH 31.1 pg (25.7-33.7); MEAN CELL VOLUME 91.4 fl (80-96); MONO % 11.3 % (3.8-10.2); NEUT % 51.1 % (42.8-82.8); PLATELET COUNT 256 K/MM3 (134-434); RBC 3.43 M/mm3 (4.00-5.60); RDW 14.8 % (11.9-15.9); WHITE BLOOD COUNT 5.6 K/mm3 (4.0-10.0)
[2020-04-11 09:37] LABS: INR 1.18 (0.83-1.09); PROTHROMBIN TIME (PATIENT) 14.5 SEC (9.7-13.0)
[2020-04-11 09:39] LABS: ACTIVATED PTT 30.3 SECONDS (25.2-36.5)
[2020-04-11 10:07] LABS: CALCIUM 9.3 mg/dL (8.5-10.1)
[2020-04-11 10:08] LABS: ALBUMIN 2.7 g/dl (3.4-5.0); BILIRUBIN,TOTAL 0.5 mg/dL (0.2-1); BLOOD UREA NITROGEN 26.4 mg/dL (7-18); MAGNESIUM 2.2 mg/dL (1.8-2.4)
[2020-04-11 10:10] LABS: TOT PROT 6.3 g/dl (6.4-8.2)
[2020-04-11 10:11] LABS: CREATININE 0.8 mg/dL (0.55-1.3)
[2020-04-11] MEDS: MEMANTINE HCL 5 MG TABLET (UD) PO SCH ×2 (10:36→21:31)
[2020-04-11] MEDS: DIGOXIN 0.125 MG TABLET PO SCH (10:36)
[2020-04-11] MEDS: AMINO ACIDS/PROTEIN HYDROLYS 30 ML LIQUID.PKT PO SCH ×2 (13:12→18:07)
[2020-04-11] MEDS ORDERED: MIDAZOLAM HCL 2 MG/2 ML SINGLE DOSE VIAL ONE (13:30)
[2020-04-11] MEDS ORDERED: ceFAZolin SODIUM 1 GM VIAL IVPB ONE (13:47)
[2020-04-11] MEDS ORDERED: ceFAZolin SODIUM 1 GM VIAL ONE (13:52)
[2020-04-11] MEDS ORDERED: PROPOFOL 20 ML ONE ×2 (13:55→14:31)
[2020-04-11] MEDS ORDERED: ONDANSETRON 4 MG/2 ML VIAL IVPUSH PRN (16:08)
[2020-04-11] MEDS ORDERED: ceFAZolin 2 GRAM PREMIX BAG IVPB SCH (16:30)
[2020-04-11] MEDS ORDERED: QUEtiapine FUMARATE 25 MG TABLET PO PRN (16:47)
[2020-04-11] MEDS ORDERED: METOPROLOL TARTRATE 5 MG/5 ML VIAL IVPUSH PRN (16:47)
[2020-04-11] MEDS: CEFAZOLIN 1 GM/D5W 1 GM/50 ML BAG IVPB SCH (18:07)
[2020-04-11] MEDS: ASCORBIC ACID 500 MG TABLET (FP) PO SCH ×2 (18:23→21:31)
[2020-04-11] MEDS: ATORVASTATIN CA 20 MG TABLET (FP) PO SCH (21:31)
[2020-04-12] MEDS: CEFAZOLIN 1 GM/D5W 1 GM/50 ML BAG IVPB SCH ×3 (02:32→16:59)
[2020-04-12] MEDS: INSULIN SLIDING SCALE (NOVOLOG) 1 VIAL SQ SCH ×4 (06:46→21:20)
[2020-04-12 08:40] LABS: CALCIUM 9.2 mg/dL (8.5-10.1)
[2020-04-12 08:41] LABS: ALBUMIN 2.6 g/dl (3.4-5.0); BLOOD UREA NITROGEN 23.3 mg/dL (7-18); MAGNESIUM 2.1 mg/dL (1.8-2.4)
[2020-04-12 08:44] LABS: BILIRUBIN,TOTAL 0.7 mg/dL (0.2-1); CREATININE 0.9 mg/dL (0.55-1.3); TOT PROT 6.4 g/dl (6.4-8.2)
[2020-04-12 09:32] LABS: BASO % 0.4 % (0-2.0); EOS % 1.9 % (0-4.5); HEMOGLOBIN 10.5 GM/dL (11.7-16.9); LYMPH % 12.5 % (8-40); MCH 31.2 pg (25.7-33.7); MCHC 33.8 g/dl (32.0-35.9); MEAN CELL VOLUME 92.3 fl (80-96); MEAN PLT VOLUME 9.3 fl (7.5-11.1); MONO % 7.9 % (3.8-10.2); NEUT % 77.3 % (42.8-82.8); PLATELET COUNT 247 K/MM3 (134-434); RBC 3.36 M/mm3 (4.00-5.60); RDW 14.6 % (11.9-15.9); WHITE BLOOD COUNT 8.8 K/mm3 (4.0-10.0)
[2020-04-12] MEDS: MEMANTINE HCL 5 MG TABLET (UD) PO SCH ×2 (10:40→21:23)
[2020-04-12] MEDS: ASCORBIC ACID 500 MG TABLET (FP) PO SCH ×2 (10:40→21:20)
[2020-04-12] MEDS: DIGOXIN 0.125 MG TABLET PO SCH (10:40)
[2020-04-12] MEDS: AMINO ACIDS/PROTEIN HYDROLYS 30 ML LIQUID.PKT PO SCH ×2 (13:13→16:43)
[2020-04-12] MEDS: ATORVASTATIN CA 20 MG TABLET (FP) PO SCH (21:19)
[2020-04-12] MEDS: APIXABAN 2.5 MG TABLET PO SCH (21:20)
[2020-04-13] MEDS: CEFAZOLIN 1 GM/D5W 1 GM/50 ML BAG IVPB SCH ×3 (01:04→18:07)
[2020-04-13] MEDS: INSULIN SLIDING SCALE (NOVOLOG) 1 VIAL SQ SCH ×4 (06:24→21:43)
[2020-04-13] MEDS: AMINO ACIDS/PROTEIN HYDROLYS 30 ML LIQUID.PKT PO SCH ×2 (09:51→18:06)
[2020-04-13] MEDS: MEMANTINE HCL 5 MG TABLET (UD) PO SCH ×2 (09:52→21:42)
[2020-04-13] MEDS: APIXABAN 2.5 MG TABLET PO SCH ×2 (09:52→21:42)
[2020-04-13] MEDS: DIGOXIN 0.125 MG TABLET PO SCH (09:52)
[2020-04-13] MEDS: ASCORBIC ACID 500 MG TABLET (FP) PO SCH ×2 (09:52→21:42)
[2020-04-13 14:00] LABS: BASO % 0.2 % (0-2.0); EOS % 3.9 % (0-4.5); HEMATOCRIT 30.7 % (35.4-49); HEMOGLOBIN 10.5 GM/dL (11.7-16.9); LYMPH % 12.5 % (8-40); MCH 31.6 pg (25.7-33.7); MCHC 34.1 g/dl (32.0-35.9); MEAN CELL VOLUME 92.5 fl (80-96); MEAN PLT VOLUME 9.1 fl (7.5-11.1); MONO % 9.1 % (3.8-10.2); NEUT % 74.3 % (42.8-82.8); PLATELET COUNT 237 K/MM3 (134-434); RBC 3.31 M/mm3 (4.00-5.60); RDW 14.7 % (11.9-15.9); WHITE BLOOD COUNT 9.9 K/mm3 (4.0-10.0)
[2020-04-13 14:26] LABS: CALCIUM 9.1 mg/dL (8.5-10.1)
[2020-04-13 14:27] LABS: ALBUMIN 2.6 g/dl (3.4-5.0); BLOOD UREA NITROGEN 23.5 mg/dL (7-18)
[2020-04-13 14:30] LABS: CREATININE 0.9 mg/dL (0.55-1.3)
[2020-04-13 14:32] LABS: BILIRUBIN,TOTAL 0.6 mg/dL (0.2-1); TOT PROT 6.7 g/dl (6.4-8.2)
[2020-04-13] MEDS ORDERED: SODIUM CHLORIDE 1,000 ML IV SCH (15:00)
[2020-04-13] MEDS: ATORVASTATIN CA 20 MG TABLET (FP) PO SCH (21:42)
[2020-04-14] MEDS: CEFAZOLIN 1 GM/D5W 1 GM/50 ML BAG IVPB SCH ×3 (01:17→17:17)
[2020-04-14] MEDS: INSULIN SLIDING SCALE (NOVOLOG) 1 VIAL SQ SCH ×4 (06:12→22:14)
[2020-04-14] MEDS: AMINO ACIDS/PROTEIN HYDROLYS 30 ML LIQUID.PKT PO SCH ×2 (08:18→17:17)
[2020-04-14] MEDS: APIXABAN 2.5 MG TABLET PO SCH ×2 (09:57→22:14)
[2020-04-14] MEDS: DIGOXIN 0.125 MG TABLET PO SCH (09:57)
[2020-04-14] MEDS: ASCORBIC ACID 500 MG TABLET (FP) PO SCH ×2 (09:57→22:14)
[2020-04-14] MEDS: MEMANTINE HCL 5 MG TABLET (UD) PO SCH ×2 (09:57→22:13)
[2020-04-14 13:16] LABS: BASO % 0.3 % (0-2.0); HEMATOCRIT 31.8 % (35.4-49); HEMOGLOBIN 10.9 GM/dL (11.7-16.9); LYMPH % 13.6 % (8-40); MCH 31.6 pg (25.7-33.7); MCHC 34.1 g/dl (32.0-35.9); MEAN CELL VOLUME 92.5 fl (80-96); MEAN PLT VOLUME 9.1 fl (7.5-11.1); NEUT % 72.1 % (42.8-82.8); PLATELET COUNT 226 K/MM3 (134-434); RBC 3.44 M/mm3 (4.00-5.60); RDW 14.5 % (11.9-15.9); WHITE BLOOD COUNT 9.5 K/mm3 (4.0-10.0)
[2020-04-14 13:34] LABS: ALBUMIN 2.5 g/dl (3.4-5.0); BLOOD UREA NITROGEN 23.5 mg/dL (7-18)
[2020-04-14 13:37] LABS: CREATININE 0.9 mg/dL (0.55-1.3)
[2020-04-14 13:39] LABS: BILIRUBIN,TOTAL 0.6 mg/dL (0.2-1); TOT PROT 6.6 g/dl (6.4-8.2)
[2020-04-14] MEDS: ATORVASTATIN CA 20 MG TABLET (FP) PO SCH (22:14)
[2020-04-15] MEDS: CEFAZOLIN 1 GM/D5W 1 GM/50 ML BAG IVPB SCH ×3 (01:38→17:56)
[2020-04-15] MEDS: INSULIN SLIDING SCALE (NOVOLOG) 1 VIAL SQ SCH ×3 (06:21→17:54)
[2020-04-15] MEDS: AMINO ACIDS/PROTEIN HYDROLYS 30 ML LIQUID.PKT PO SCH ×2 (09:29→17:56)
[2020-04-15] MEDS: DIGOXIN 0.125 MG TABLET PO SCH (09:29)
[2020-04-15] MEDS: MEMANTINE HCL 5 MG TABLET (UD) PO SCH (09:29)
[2020-04-15] MEDS: ASCORBIC ACID 500 MG TABLET (FP) PO SCH (09:29)
[2020-04-15] MEDS: APIXABAN 2.5 MG TABLET PO SCH (09:29)
[2020-04-15 09:54] LABS: BASO % 0.3 % (0-2.0); EOS % 6.6 % (0-4.5); HEMOGLOBIN 10.9 GM/dL (11.7-16.9); LYMPH % 24.9 % (8-40); MCH 30.9 pg (25.7-33.7); MEAN CELL VOLUME 90.9 fl (80-96); MEAN PLT VOLUME 9.4 fl (7.5-11.1); MONO % 10.1 % (3.8-10.2); NEUT % 58.1 % (42.8-82.8); PLATELET COUNT 232 K/MM3 (134-434); RBC 3.52 M/mm3 (4.00-5.60); RDW 14.2 % (11.9-15.9); WHITE BLOOD COUNT 7.3 K/mm3 (4.0-10.0)
[2020-04-15 10:32] LABS: ALBUMIN 2.4 g/dl (3.4-5.0); BLOOD UREA NITROGEN 25.1 mg/dL (7-18); MAGNESIUM 1.9 mg/dL (1.8-2.4)
[2020-04-15 10:35] LABS: CREATININE 0.9 mg/dL (0.55-1.3)
[2020-04-15 10:36] LABS: BILIRUBIN,TOTAL 0.9 mg/dL (0.2-1); TOT PROT 6.4 g/dl (6.4-8.2)
[2020-04-15 14:22] VITALS: BP 154/86; PULSE 91; TEMP 97.7
== END 2020-04-15 21:02 | disposition short-term general hospital (02) | DRG 698 ==
LOC: JER 13:10 → JERBED 19:04 → OBSVTOIN 19:04 → J4W 03-25 00:58 → J6S 04-07 13:56
PROVIDERS: ADMIT Internal Medicine; ATTEND Nurse Practitioner Family
PROC: 0T9B30Z Drainage of Bladder with Drainage Device, Percutaneous Approach (ICD-10-PCS; principal; 2020-04-11)
PROC: 0TJB8ZZ Inspection of Bladder, Via Natural or Artificial Opening Endoscopic (ICD-10-PCS; 2020-04-11)
DX: T83.89XA Other specified complication of genitourinary prosthetic devices, implants and grafts, initial encounter (principal); G93.41 Metabolic encephalopathy; N39.0 Urinary tract infection, site not specified; I69.354 Hemiplegia and hemiparesis following cerebral infarction affecting left non-dominant side; F03.91 Unspecified dementia, unspecified severity, with behavioral disturbance; I48.20 Chronic atrial fibrillation, unspecified; E11.9 Type 2 diabetes mellitus without complications; I69.30 Unspecified sequelae of cerebral infarction; N40.0 Benign prostatic hyperplasia without lower urinary tract symptoms; I10 Essential (primary) hypertension; H54.40 Blindness, one eye, unspecified eye; B95.2 Enterococcus as the cause of diseases classified elsewhere; N32.3 Diverticulum of bladder; K21.9 Gastro-esophageal reflux disease without esophagitis; N13.9 Obstructive and reflux uropathy, unspecified; I25.10 Atherosclerotic heart disease of native coronary artery without angina pectoris; N32.89 Other specified disorders of bladder; G93.89 Other specified disorders of brain; I35.0 Nonrheumatic aortic (valve) stenosis; E86.0 Dehydration; Z93.59 Other cystostomy status; Z96.652 Presence of left artificial knee joint; Z20.828 Contact with and (suspected) exposure to other viral communicable diseases
CPT/HCPCS: 36415; 70450-TC; 70551-TC; 71045-TC-FY; 80048; 80053; 80061; 80162; 81003; 82550; 82607; 82962; 83605; 83721; 83735; 84100; 84153; 84443; 84484; 85025; 85610; 85730; 86780; 87040; 87077; 87086; 87186; 93005; 93010; 93971; 94760; 97161-GP; 99285-25; C9803; J0878; J1644; U0003

== ENCOUNTER 2020-09-17 15:40 | Inpatient (IN) | payer OTHER ==
[2020-09-17] MEDS ORDERED: MEROPENEM 1 GM in DEXTROSE 5%-WATER 100 ML IVPB ONE (16:49)
[2020-09-17] MEDS ORDERED: MEROPENEM 1 GM VIAL (RESTRICTED TO ID) IVPB ONE (17:32)
[2020-09-17 17:47] LABS: BASO % 0.6 % (0-2.0); EOS % 4.1 % (0-4.5); HEMATOCRIT 29.9 % (35.4-49); HEMOGLOBIN 10.1 GM/dL (11.7-16.9); LYMPH % 23.9 % (8-40); MCH 30.2 pg (25.7-33.7); MCHC 33.6 g/dl (32.0-35.9); MEAN CELL VOLUME 89.9 fl (80-96); MEAN PLT VOLUME 8.2 fl (7.5-11.1); MONO % 10.8 % (3.8-10.2); NEUT % 60.6 % (42.8-82.8); PLATELET COUNT 240 K/MM3 (134-434); RBC 3.33 M/mm3 (4.00-5.60); RDW 15.5 % (11.9-15.9); WHITE BLOOD COUNT 6.5 K/mm3 (4.0-10.0)
[2020-09-17 17:51] LABS: EPI CELLS 10 /uL (0-25.1); HYALINE CASTS 11 /uL (0-3.1); URINE APPEARANCE TURBID; URINE BACTERIA >9,000 /uL (0-1359); URINE BILIRUBIN NEGATIVE (NEGATIVE); URINE COLOR YELLOW; URINE GLUCOSE (UA) NEGATIVE (NEGATIVE); URINE KETONE NEGATIVE (NEGATIVE); URINE LEUK ESTERASE 3+ (NEGATIVE); URINE NITRITE NEGATIVE (NEGATIVE); URINE PROTEIN 2+ (NEGATIVE); URINE UROBILINOGEN 0.2 mg/dL (0.2-1.0); URINE WBC 11502 /uL (0-25.8)
[2020-09-17 17:59] LABS: CALCIUM 9.1 mg/dL (8.5-10.1)
[2020-09-17 18:00] LABS: ALBUMIN 2.7 g/dl (3.4-5.0); BLOOD UREA NITROGEN 25.1 mg/dL (7-18)
[2020-09-17 18:03] LABS: CREATININE 0.8 mg/dL (0.55-1.3)
[2020-09-17 18:04] LABS: BILIRUBIN,TOTAL 0.2 mg/dL (0.2-1); TOT PROT 6.9 g/dl (6.4-8.2)
[2020-09-17 18:26] LABS: URINE RBC 697.1 /uL (0-23.9)
[2020-09-17] MEDS ORDERED: DAPTOMYCIN 360 MG in SODIUM CHLORIDE 50 ML IVPB SCH (21:00)
[2020-09-17 22:40] VITALS: BMI 22.7
[2020-09-18] MEDS ORDERED: MEROPENEM 1 GM VIAL (RESTRICTED TO ID) IVPB ONE ×3 (01:07→17:11)
[2020-09-18] MEDS ORDERED: DEXTROSE 5%-WATER 100 ML IVPB ONE ×3 (01:07→17:11)
[2020-09-18] MEDS: MEROPENEM 1 GM in DEXTROSE 5%-WATER 100 ML IVPB SCH ×3 (01:09→17:26)
[2020-09-18] MEDS ORDERED: MEROPENEM 1 GM in DEXTROSE 5%-WATER 100 ML IVPB SCH (02:00)
[2020-09-18 08:11] LABS: HEMATOCRIT 27.6 % (35.4-49); HEMOGLOBIN 9.3 GM/dL (11.7-16.9); MCH 30.4 pg (25.7-33.7); MCHC 33.5 g/dl (32.0-35.9); MEAN CELL VOLUME 90.6 fl (80-96); MEAN PLT VOLUME 9.1 fl (7.5-11.1); PLATELET COUNT 147 K/MM3 (134-434); RBC 3.05 M/mm3 (4.00-5.60); RDW 15.5 % (11.9-15.9); WHITE BLOOD COUNT 6.1 K/mm3 (4.0-10.0)
[2020-09-18 08:38] LABS: CALCIUM 8.9 mg/dL (8.5-10.1)
[2020-09-18 08:39] LABS: BLOOD UREA NITROGEN 18.6 mg/dL (7-18)
[2020-09-18 08:42] LABS: CREATININE 0.7 mg/dL (0.55-1.3); PHOSPHOROUS 3.1 mg/dL (2.5-4.9)
[2020-09-18] MEDS: QUEtiapine FUMARATE 25 MG TABLET PO PRN (21:22)
[2020-09-18] MEDS: ASCORBIC ACID 500 MG TABLET (FP) PO SCH (21:22)
[2020-09-18] MEDS: APIXABAN 2.5 MG TABLET PO SCH ×2 (21:25→22:00)
[2020-09-19] MEDS ORDERED: MEROPENEM 1 GM VIAL (RESTRICTED TO ID) IVPB ONE ×3 (01:36→17:07)
[2020-09-19] MEDS ORDERED: DEXTROSE 5%-WATER 100 ML IVPB ONE ×3 (01:36→17:07)
[2020-09-19] MEDS: MEROPENEM 1 GM in DEXTROSE 5%-WATER 100 ML IVPB SCH ×3 (01:44→17:13)
[2020-09-19 08:32] LABS: HEMATOCRIT 29.1 % (35.4-49); HEMOGLOBIN 9.9 GM/dL (11.7-16.9); MCH 30.6 pg (25.7-33.7); MCHC 34.1 g/dl (32.0-35.9); MEAN CELL VOLUME 89.6 fl (80-96); MEAN PLT VOLUME 7.8 fl (7.5-11.1); PLATELET COUNT 219 K/MM3 (134-434); RBC 3.25 M/mm3 (4.00-5.60); WHITE BLOOD COUNT 6.1 K/mm3 (4.0-10.0)
[2020-09-19 08:53] LABS: ALBUMIN 2.4 g/dl (3.4-5.0)
[2020-09-19 08:54] LABS: BLOOD UREA NITROGEN 16.4 mg/dL (7-18); CALCIUM 9.4 mg/dL (8.5-10.1)
[2020-09-19 08:58] LABS: CREATININE 0.8 mg/dL (0.55-1.3)
[2020-09-19 08:59] LABS: BILIRUBIN,TOTAL 0.4 mg/dL (0.2-1); TOT PROT 6.3 g/dl (6.4-8.2)
[2020-09-19] MEDS: APIXABAN 2.5 MG TABLET PO SCH ×2 (09:19→21:44)
[2020-09-19] MEDS: ASCORBIC ACID 500 MG TABLET (FP) PO SCH ×2 (09:19→21:44)
[2020-09-19] MEDS: QUEtiapine FUMARATE 25 MG TABLET PO PRN (21:44)
[2020-09-19] MEDS: ATORVASTATIN CA 20 MG TABLET (FP) PO SCH (21:44)
[2020-09-20] MEDS ORDERED: MEROPENEM 1 GM VIAL (RESTRICTED TO ID) IVPB ONE ×3 (01:51→17:47)
[2020-09-20] MEDS ORDERED: DEXTROSE 5%-WATER 100 ML IVPB ONE ×3 (01:52→17:47)
[2020-09-20] MEDS: MEROPENEM 1 GM in DEXTROSE 5%-WATER 100 ML IVPB SCH ×3 (02:08→17:54)
[2020-09-20 08:16] LABS: HEMATOCRIT 29.3 % (35.4-49); HEMOGLOBIN 9.9 GM/dL (11.7-16.9); MCHC 33.7 g/dl (32.0-35.9); MEAN CELL VOLUME 89.1 fl (80-96); MEAN PLT VOLUME 7.9 fl (7.5-11.1); PLATELET COUNT 217 10^3/uL (134-434); RBC 3.28 M/mm3 (4.00-5.60); RDW 15.5 % (11.9-15.9); WHITE BLOOD COUNT 4.7 K/mm3 (4.0-10.0)
[2020-09-20 08:41] LABS: CALCIUM 9.1 mg/dL (8.5-10.1)
[2020-09-20 08:45] LABS: CREATININE 0.7 mg/dL (0.55-1.3)
[2020-09-20] MEDS: ASCORBIC ACID 500 MG TABLET (FP) PO SCH ×2 (09:50→21:12)
[2020-09-20] MEDS: APIXABAN 2.5 MG TABLET PO SCH (09:52)
[2020-09-20] MEDS ORDERED: APIXABAN 5 MG TABLET PO SCH (11:30)
[2020-09-20] MEDS: APIXABAN 5 MG TABLET PO SCH (21:12)
[2020-09-20] MEDS: ATORVASTATIN CA 20 MG TABLET (FP) PO SCH (21:12)
[2020-09-21] MEDS ORDERED: DEXTROSE 5%-WATER 100 ML IVPB ONE ×3 (01:53→17:09)
[2020-09-21] MEDS ORDERED: MEROPENEM 1 GM VIAL (RESTRICTED TO ID) IVPB ONE ×3 (01:53→17:09)
[2020-09-21] MEDS: MEROPENEM 1 GM in DEXTROSE 5%-WATER 100 ML IVPB SCH ×3 (01:57→17:16)
[2020-09-21 08:37] LABS: HEMATOCRIT 30.4 % (35.4-49); HEMOGLOBIN 10.3 GM/dL (11.7-16.9); MCH 30.2 pg (25.7-33.7); MCHC 33.9 g/dl (32.0-35.9); MEAN PLT VOLUME 7.9 fl (7.5-11.1); PLATELET COUNT 232 10^3/uL (134-434); RBC 3.42 M/mm3 (4.00-5.60); RDW 15.3 % (11.9-15.9); WHITE BLOOD COUNT 5.1 K/mm3 (4.0-10.0)
[2020-09-21 09:08] LABS: BLOOD UREA NITROGEN 20.5 mg/dL (7-18)
[2020-09-21 09:11] LABS: CREATININE 0.6 mg/dL (0.55-1.3)
[2020-09-21] MEDS: ASCORBIC ACID 500 MG TABLET (FP) PO SCH ×2 (09:59→21:24)
[2020-09-21] MEDS: APIXABAN 5 MG TABLET PO SCH ×2 (09:59→21:24)
[2020-09-21] MEDS: ATORVASTATIN CA 20 MG TABLET (FP) PO SCH (21:23)
[2020-09-21] MEDS: QUEtiapine FUMARATE 25 MG TABLET PO PRN (21:24)
[2020-09-22] MEDS ORDERED: DEXTROSE 5%-WATER 100 ML IVPB ONE ×4 (00:59→17:47)
[2020-09-22] MEDS ORDERED: MEROPENEM 1 GM VIAL (RESTRICTED TO ID) IVPB ONE ×4 (00:59→17:47)
[2020-09-22] MEDS: MEROPENEM 1 GM in DEXTROSE 5%-WATER 100 ML IVPB SCH ×3 (01:38→17:45)
[2020-09-22 07:47] LABS: HEMATOCRIT 31.5 % (35.4-49); HEMOGLOBIN 10.5 GM/dL (11.7-16.9); MCH 30.2 pg (25.7-33.7); MCHC 33.5 g/dl (32.0-35.9); PLATELET COUNT 223 10^3/uL (134-434); RDW 15.6 % (11.9-15.9); WHITE BLOOD COUNT 6.1 K/mm3 (4.0-10.0)
[2020-09-22 08:21] LABS: CALCIUM 9.1 mg/dL (8.5-10.1)
[2020-09-22 08:22] LABS: BLOOD UREA NITROGEN 24.4 mg/dL (7-18)
[2020-09-22 08:25] LABS: CREATININE 0.6 mg/dL (0.55-1.3)
[2020-09-22] MEDS: APIXABAN 5 MG TABLET PO SCH ×2 (09:07→21:58)
[2020-09-22] MEDS: ASCORBIC ACID 500 MG TABLET (FP) PO SCH ×2 (09:07→21:57)
[2020-09-22] MEDS ORDERED: INSULIN (NOVOLOG) ASPART 100 UNITS/ML 10ML VIAL ONE (13:10)
[2020-09-22] MEDS: INSULIN SLIDING SCALE (NOVOLOG) 1 VIAL SQ SCH ×2 (16:51→21:58)
[2020-09-22] MEDS: QUEtiapine FUMARATE 25 MG TABLET PO PRN (21:57)
[2020-09-22] MEDS: ATORVASTATIN CA 20 MG TABLET (FP) PO SCH (21:58)
[2020-09-23] MEDS ORDERED: MEROPENEM 1 GM VIAL (RESTRICTED TO ID) IVPB ONE ×2 (01:01→09:57)
[2020-09-23] MEDS ORDERED: DEXTROSE 5%-WATER 100 ML IVPB ONE ×2 (01:01→09:57)
[2020-09-23] MEDS: MEROPENEM 1 GM in DEXTROSE 5%-WATER 100 ML IVPB SCH ×2 (01:10→10:00)
[2020-09-23] MEDS: INSULIN SLIDING SCALE (NOVOLOG) 1 VIAL SQ SCH ×2 (06:16→11:28)
[2020-09-23 08:49] LABS: BLOOD UREA NITROGEN 21.9 mg/dL (7-18); CALCIUM 9.1 mg/dL (8.5-10.1); MAGNESIUM 2.2 mg/dL (1.8-2.4)
[2020-09-23 08:52] LABS: CREATININE 0.7 mg/dL (0.55-1.3)
[2020-09-23 08:53] LABS: PHOSPHOROUS 3.3 mg/dL (2.5-4.9)
[2020-09-23] MEDS: ASCORBIC ACID 500 MG TABLET (FP) PO SCH (10:00)
[2020-09-23] MEDS: APIXABAN 5 MG TABLET PO SCH (10:00)
[2020-09-23 14:45] VITALS: BP 146/87; PULSE 109; TEMP 97
== END 2020-09-23 16:40 | disposition home or self-care (01) | DRG 689 ==
LOC: JER 15:40 → JERBED 18:06 → J6S 21:51
PROVIDERS: ADMIT Hospitalist; ATTEND Internal Medicine
PROC: 0T2BX0Z Change Drainage Device in Bladder, External Approach (ICD-10-PCS; principal; 2020-09-18)
DX: N39.0 Urinary tract infection, site not specified (principal); G93.41 Metabolic encephalopathy; I69.354 Hemiplegia and hemiparesis following cerebral infarction affecting left non-dominant side; E11.9 Type 2 diabetes mellitus without complications; I10 Essential (primary) hypertension; N40.0 Benign prostatic hyperplasia without lower urinary tract symptoms; F03.90 Unspecified dementia, unspecified severity, without behavioral disturbance, psychotic disturbance, mood disturbance, and anxiety; K21.9 Gastro-esophageal reflux disease without esophagitis; R00.9 Unspecified abnormalities of heart beat; R21 Rash and other nonspecific skin eruption; I48.91 Unspecified atrial fibrillation; H54.40 Blindness, one eye, unspecified eye; H91.8X3 Other specified hearing loss, bilateral; R00.0 Tachycardia, unspecified; E78.5 Hyperlipidemia, unspecified; R41.82 Altered mental status, unspecified; G47.00 Insomnia, unspecified; D64.9 Anemia, unspecified; L89.626 Pressure-induced deep tissue damage of left heel; L89.151 Pressure ulcer of sacral region, stage 1; B95.2 Enterococcus as the cause of diseases classified elsewhere; B96.5 Pseudomonas (aeruginosa) (mallei) (pseudomallei) as the cause of diseases classified elsewhere; B96.89 Other specified bacterial agents as the cause of diseases classified elsewhere; Z96.652 Presence of left artificial knee joint; Z88.0 Allergy status to penicillin; Z93.50 Unspecified cystostomy status
CPT/HCPCS: 36415; 71045-TC-FY; 80048; 80053; 81003; 82962; 83735; 84100; 85025; 85027; 87040; 87086; 87186; 93005; 93010; 99285-25; C9803; J0878; U0003; U0005

== ENCOUNTER 2020-10-03 00:19 | Observation (INO) | payer OTHER ==
[2020-10-03 02:40] LABS: BASO % 1.3 % (0-2.0); EOS % 4.9 % (0-4.5); HEMOGLOBIN 9.5 GM/dL (11.7-16.9); MCHC 33.8 g/dl (32.0-35.9); MEAN CELL VOLUME 88.8 fl (80-96); MEAN PLT VOLUME 8.3 fl (7.5-11.1); MONO % 9.8 % (3.8-10.2); PLATELET COUNT 221 10^3/uL (134-434); RBC 3.15 M/mm3 (4.00-5.60); RDW 15.3 % (11.9-15.9); WHITE BLOOD COUNT 6.3 K/mm3 (4.0-10.0)
[2020-10-03 02:58] LABS: CHLORIDE 108 mmol/L (98-107); SODIUM 140 mmol/L (136-145)
[2020-10-03 03:00] LABS: CALCIUM 8.4 mg/dL (8.5-10.1)
[2020-10-03 03:01] LABS: ALBUMIN 2.5 g/dl (3.4-5.0); ANION GAP 5 MMOL/L (8-16); BLOOD UREA NITROGEN 28.5 mg/dL (7-18); CO2 27 mmol/L (21-32); GLUCOSE,RANDOM 96 mg/dL (74-106); MAGNESIUM 2.2 mg/dL (1.8-2.4)
[2020-10-03 03:04] LABS: CREATININE 0.9 mg/dL (0.55-1.3); SGOT/AST 23 U/L (15-37); SGPT/ALT 24 U/L (13-61)
[2020-10-03 03:06] LABS: BILIRUBIN,TOTAL 0.3 mg/dL (0.2-1); TOT PROT 6.4 g/dl (6.4-8.2)
[2020-10-03 03:07] LABS: ALK PHOS 96 U/L (45-117)
[2020-10-03 03:12] LABS: URINE APPEARANCE Clear; URINE BILIRUBIN Negative (NEGATIVE); URINE COLOR Yellow; URINE GLUCOSE (UA) Negative (NEGATIVE); URINE KETONE Negative (NEGATIVE); URINE LEUK ESTERASE 1+ (NEGATIVE); URINE NITRITE Negative (NEGATIVE); URINE PROTEIN 2+ (NEGATIVE); URINE UROBILINOGEN 0.2 mg/dL (0.2-1.0)
[2020-10-03 03:37] LABS: URINE RBC 936 /uL (0-23.9); URINE WBC 1584 /uL (0-25.8)
[2020-10-03 03:38] LABS: EPI CELLS 1 /uL (0-25.1); HYALINE CASTS 1 /uL (0-3.1); URINE BACTERIA 138 /uL (0-1359)
[2020-10-03] MEDS ORDERED: MEROPENEM 1 GM in DEXTROSE 5%-WATER 100 ML IVPB ONE (05:11)
[2020-10-03] MEDS ORDERED: MEROPENEM 1 GM VIAL (RESTRICTED TO ID) IVPB ONE (05:20)
[2020-10-03] MEDS ORDERED: QUEtiapine FUMARATE 25 MG TABLET PO PRN (07:39)
[2020-10-03 09:32] LABS: INR 1.19 (0.83-1.09); PROTHROMBIN TIME (PATIENT) 14.3 SEC (9.7-13.0)
[2020-10-03] MEDS: APIXABAN 2.5 MG TABLET PO SCH ×2 (10:49→21:32)
[2020-10-03] MEDS: INSULIN SLIDING SCALE (NOVOLOG) 1 VIAL SQ SCH ×3 (11:05→21:32)
[2020-10-03 14:29] VITALS: BMI 23.2
[2020-10-03] MEDS: ATORVASTATIN CA 20 MG TABLET (FP) PO SCH (21:32)
[2020-10-04] MEDS: INSULIN SLIDING SCALE (NOVOLOG) 1 VIAL SQ SCH ×4 (06:18→23:21)
[2020-10-04 09:01] LABS: HEMATOCRIT 29.8 % (35.4-49); MCH 30.3 pg (25.7-33.7); MCHC 33.6 g/dl (32.0-35.9); MEAN CELL VOLUME 90.1 fl (80-96); MEAN PLT VOLUME 8.7 fl (7.5-11.1); PLATELET COUNT 199 10^3/uL (134-434); RBC 3.31 M/mm3 (4.00-5.60); RDW 14.9 % (11.9-15.9); WHITE BLOOD COUNT 5.8 K/mm3 (4.0-10.0)
[2020-10-04] MEDS: APIXABAN 2.5 MG TABLET PO SCH (09:10)
[2020-10-04 09:30] LABS: ALBUMIN 2.6 g/dl (3.4-5.0); BLOOD UREA NITROGEN 21.7 mg/dL (7-18); CALCIUM 8.8 mg/dL (8.5-10.1)
[2020-10-04 09:31] LABS: MAGNESIUM 2.1 mg/dL (1.8-2.4)
[2020-10-04 09:33] LABS: CREATININE 0.8 mg/dL (0.55-1.3)
[2020-10-04 09:35] LABS: BILIRUBIN,TOTAL 0.5 mg/dL (0.2-1); TOT PROT 6.6 g/dl (6.4-8.2)
[2020-10-04 09:36] LABS: PHOSPHOROUS 3.7 mg/dL (2.5-4.9)
[2020-10-04] MEDS: ATORVASTATIN CA 20 MG TABLET (FP) PO SCH (23:17)
[2020-10-04] MEDS: APIXABAN 5 MG TABLET PO SCH (23:21)
[2020-10-05] MEDS: INSULIN SLIDING SCALE (NOVOLOG) 1 VIAL SQ SCH ×4 (06:43→21:29)
[2020-10-05 09:10] LABS: HEMATOCRIT 31.6 % (35.4-49); HEMOGLOBIN 10.5 GM/dL (11.7-16.9); MCH 29.9 pg (25.7-33.7); MCHC 33.3 g/dl (32.0-35.9); MEAN CELL VOLUME 89.9 fl (80-96); MEAN PLT VOLUME 8.6 fl (7.5-11.1); PLATELET COUNT 237 10^3/uL (134-434); RBC 3.52 M/mm3 (4.00-5.60); WHITE BLOOD COUNT 5.4 K/mm3 (4.0-10.0)
[2020-10-05 09:26] LABS: BLOOD UREA NITROGEN 19.9 mg/dL (7-18); CALCIUM 8.8 mg/dL (8.5-10.1)
[2020-10-05 09:33] LABS: CREATININE 0.8 mg/dL (0.55-1.3)
[2020-10-05] MEDS: APIXABAN 5 MG TABLET PO SCH ×2 (09:44→21:06)
[2020-10-05] MEDS: AMINO ACIDS/PROTEIN HYDROLYS 30 ML LIQUID.PKT PO SCH ×2 (09:45→17:41)
[2020-10-05] MEDS: ATORVASTATIN CA 20 MG TABLET (FP) PO SCH (21:06)
[2020-10-06] MEDS: INSULIN SLIDING SCALE (NOVOLOG) 1 VIAL SQ SCH ×2 (06:06→10:48)
[2020-10-06] MEDS: APIXABAN 5 MG TABLET PO SCH (09:03)
[2020-10-06] MEDS: AMINO ACIDS/PROTEIN HYDROLYS 30 ML LIQUID.PKT PO SCH (09:03)
[2020-10-06 09:25] VITALS: BP 142/94; PULSE 91; TEMP 98
== END 2020-10-06 12:24 | disposition home health service (06) ==
LOC: JER 00:19 → INTOOBSV 05:15 → JERBED 05:15 → UNDOADMOB 05:15 → J8W 09:34 → JERBED 09:34 → J8W 10-04 11:11 → JERBED 10-04 11:11
PROVIDERS: ADMIT Hospitalist; ATTEND Internal Medicine
DX: R07.89 Other chest pain (principal); N30.00 Acute cystitis without hematuria; I10 Essential (primary) hypertension; E11.9 Type 2 diabetes mellitus without complications; N40.0 Benign prostatic hyperplasia without lower urinary tract symptoms; I69.354 Hemiplegia and hemiparesis following cerebral infarction affecting left non-dominant side; I48.20 Chronic atrial fibrillation, unspecified; Z88.0 Allergy status to penicillin; Z79.01 Long term (current) use of anticoagulants; F03.90 Unspecified dementia, unspecified severity, without behavioral disturbance, psychotic disturbance, mood disturbance, and anxiety; E78.5 Hyperlipidemia, unspecified; D64.9 Anemia, unspecified; Z93.50 Unspecified cystostomy status; Z79.4 Long term (current) use of insulin
CPT/HCPCS: 36415; 71045-TC-FY; 80048; 80053; 81003; 82550; 82962; 83735; 84100; 84484; 85025; 85027; 85610; 87077; 87086; 87186; 93005; 93010; 96365; 97116-GP; 97161-GP; 99285-25; C9803; G0378; U0003; U0005

== ENCOUNTER 2020-10-26 12:55 | Inpatient (IN) | payer OTHER, MEDICARE ==
[2020-10-26] MEDS ORDERED: SODIUM CHLORIDE 0.9% 500 ML INFUS.BAG IV ONE ×2 (13:34→17:33)
[2020-10-26 15:48] LABS: BASO % 0.7 % (0-2.0); EOS % 4.2 % (0-4.5); HEMATOCRIT 30.3 % (35.4-49); MCH 30.1 pg (25.7-33.7); MCHC 33.2 g/dl (32.0-35.9); MEAN CELL VOLUME 90.7 fl (80-96); MEAN PLT VOLUME 8.7 fl (7.5-11.1); NEUT % 62.1 % (42.8-82.8); PLATELET COUNT 255 10^3/uL (134-434); RBC 3.34 M/mm3 (4.00-5.60); RDW 14.7 % (11.9-15.9); WHITE BLOOD COUNT 5.2 K/mm3 (4.0-10.0)
[2020-10-26 15:56] LABS: INR 1.06 (0.83-1.09); PROTHROMBIN TIME (PATIENT) 12.8 SEC (9.7-13.0)
[2020-10-26 15:57] LABS: EPI CELLS 21 /uL (0-25.1); HYALINE CASTS 11 /uL (0-3.1); URINE APPEARANCE TURBID; URINE BACTERIA 41 /uL (0-1359); URINE BILIRUBIN NEGATIVE (NEGATIVE); URINE COLOR YELLOW; URINE GLUCOSE (UA) NEGATIVE (NEGATIVE); URINE KETONE NEGATIVE (NEGATIVE); URINE LEUK ESTERASE 3+ (NEGATIVE); URINE NITRITE NEGATIVE (NEGATIVE); URINE PROTEIN 3+ (NEGATIVE); URINE UROBILINOGEN 0.2 mg/dL (0.2-1.0); URINE WBC 3965 /uL (0-25.8)
[2020-10-26 15:58] LABS: ACTIVATED PTT 28.5 SECONDS (25.2-36.5)
[2020-10-26 16:08] LABS: BLOOD UREA NITROGEN 22.2 mg/dL (7-18); CALCIUM 8.7 mg/dL (8.5-10.1)
[2020-10-26 16:10] LABS: ALBUMIN 2.6 g/dl (3.4-5.0)
[2020-10-26] MEDS ORDERED: TIGECYCLINE 100 MG in DEXTROSE 5%-WATER - 100 ML IVPB ONE (16:11)
[2020-10-26 16:14] LABS: BILIRUBIN,TOTAL 0.2 mg/dL (0.2-1)
[2020-10-26 16:17] LABS: LACTIC ACID 2.4 mmol/L (0.4-2.0)
[2020-10-26 22:25] LABS: URINE RBC 2149.1 /uL (0-23.9); YEAST MANY (NEGATIVE)
[2020-10-26 22:32] VITALS: BMI 25.7
[2020-10-26] MEDS ORDERED: TAMSULOSIN HCL 0.4 MG CAP PO ONE (22:53)
[2020-10-26] MEDS ORDERED: ACETAMINOPHEN 1000 MG/100 ML VIAL (NON FORMULARY) IVPB PRN (22:53)
[2020-10-26] MEDS ORDERED: QUEtiapine FUMARATE 25 MG TABLET PO PRN (22:58)
[2020-10-26] MEDS: SODIUM CHLORIDE 1,000 ML IV SCH (23:30)
[2020-10-27] MEDS: QUEtiapine FUMARATE 25 MG TABLET PO PRN ×2 (01:13→21:56)
[2020-10-27] MEDS: INSULIN SLIDING SCALE (NOVOLOG) 1 VIAL SQ SCH ×3 (06:20→16:40)
[2020-10-27 07:44] LABS: EOS % 5.4 % (0-4.5); HEMATOCRIT 27.5 % (35.4-49); HEMOGLOBIN 9.2 GM/dL (11.7-16.9); LYMPH % 27.4 % (8-40); MCH 30.2 pg (25.7-33.7); MCHC 33.6 g/dl (32.0-35.9); MEAN CELL VOLUME 89.8 fl (80-96); MONO % 13.5 % (3.8-10.2); NEUT % 52.7 % (42.8-82.8); PLATELET COUNT 216 10^3/uL (134-434); RBC 3.06 M/mm3 (4.00-5.60); RDW 14.9 % (11.9-15.9); WHITE BLOOD COUNT 4.9 K/mm3 (4.0-10.0)
[2020-10-27 08:15] LABS: ALBUMIN 2.3 g/dl (3.4-5.0); CALCIUM 8.4 mg/dL (8.5-10.1)
[2020-10-27 08:18] LABS: CREATININE 0.8 mg/dL (0.55-1.3); PHOSPHOROUS 3.8 mg/dL (2.5-4.9)
[2020-10-27 08:20] LABS: BILIRUBIN,TOTAL 0.3 mg/dL (0.2-1)
[2020-10-27] MEDS: TAMSULOSIN HCL 0.4 MG CAP PO SCH (08:52)
[2020-10-27] MEDS: risperiDONE 0.25 MG TABLET PO SCH ×2 (11:53→21:57)
[2020-10-27] MEDS: POLYETHYLENE GLYCOL (HEALTHYLAX) 3350 17 GM PACKET PO SCH (11:53)
[2020-10-27] MEDS ORDERED: TIGECYCLINE 50 MG in DEXTROSE 5%-WATER 100 ML IVPB SCH (14:00)
[2020-10-27] MEDS ORDERED: DEXTROSE 5%-WATER 100 ML IVPB ONE ×2 (14:40→17:47)
[2020-10-27] MEDS ORDERED: MEROPENEM 1 GM VIAL (RESTRICTED TO ID) IVPB ONE ×2 (14:40→17:47)
[2020-10-27] MEDS: MEROPENEM 1 GM in DEXTROSE 5%-WATER 100 ML IVPB SCH ×2 (14:42→18:11)
[2020-10-27] MEDS: ATORVASTATIN CA 20 MG TABLET (FP) PO SCH (21:56)
[2020-10-27] MEDS: SODIUM CHLORIDE 1,000 ML IV SCH (21:57)
[2020-10-28] MEDS ORDERED: MEROPENEM 1 GM VIAL (RESTRICTED TO ID) IVPB ONE ×3 (01:04→17:26)
[2020-10-28] MEDS ORDERED: DEXTROSE 5%-WATER 100 ML IVPB ONE ×3 (01:04→17:26)
[2020-10-28] MEDS: MEROPENEM 1 GM in DEXTROSE 5%-WATER 100 ML IVPB SCH ×3 (01:26→17:53)
[2020-10-28] MEDS: INSULIN SLIDING SCALE (NOVOLOG) 1 VIAL SQ SCH ×3 (06:11→17:52)
[2020-10-28] MEDS: TAMSULOSIN HCL 0.4 MG CAP PO SCH (08:49)
[2020-10-28 08:58] LABS: BASO % 0.9 % (0-2.0); EOS % 5.9 % (0-4.5); HEMATOCRIT 28.2 % (35.4-49); HEMOGLOBIN 9.6 GM/dL (11.7-16.9); LYMPH % 10.4 % (8-40); MCH 30.6 pg (25.7-33.7); MCHC 34.1 g/dl (32.0-35.9); MEAN CELL VOLUME 89.7 fl (80-96); MEAN PLT VOLUME 7.9 fl (7.5-11.1); MONO % 9.8 % (3.8-10.2); PLATELET COUNT 211 10^3/uL (134-434); RBC 3.14 M/mm3 (4.00-5.60); RDW 14.5 % (11.9-15.9); WHITE BLOOD COUNT 5.6 K/mm3 (4.0-10.0)
[2020-10-28] MEDS: POLYETHYLENE GLYCOL (HEALTHYLAX) 3350 17 GM PACKET PO SCH (09:03)
[2020-10-28] MEDS: risperiDONE 0.25 MG TABLET PO SCH ×2 (09:03→22:53)
[2020-10-28 09:21] LABS: ALBUMIN 2.4 g/dl (3.4-5.0)
[2020-10-28 09:22] LABS: BLOOD UREA NITROGEN 17.8 mg/dL (7-18); CALCIUM 8.2 mg/dL (8.5-10.1); MAGNESIUM 1.9 mg/dL (1.8-2.4)
[2020-10-28 09:24] LABS: CREATININE 0.7 mg/dL (0.55-1.3)
[2020-10-28 09:25] LABS: BILIRUBIN,TOTAL 0.5 mg/dL (0.2-1); PHOSPHOROUS 3.4 mg/dL (2.5-4.9); TOT PROT 6.2 g/dl (6.4-8.2)
[2020-10-28] MEDS ORDERED: POTASSIUM CHLORIDE ORAL LIQUID 20 MEQ/15 ML PO ONE (13:18)
[2020-10-28] MEDS: metoPROLOL SUCCINATE 25 MG TAB.SR.24H (FP) PO SCH (13:55)
[2020-10-28] MEDS: AMINO ACIDS/PROTEIN HYDROLYS 30 ML LIQUID.PKT PO SCH (17:53)
[2020-10-28] MEDS: BACITRACIN 15 GM TUBE TOPICAL OINTMENT TP SCH (17:54)
[2020-10-28] MEDS: ATORVASTATIN CA 20 MG TABLET (FP) PO SCH (22:52)
[2020-10-28] MEDS: QUEtiapine FUMARATE 25 MG TABLET PO PRN (22:54)
[2020-10-29] MEDS ORDERED: DEXTROSE 5%-WATER 100 ML IVPB ONE ×3 (00:34→17:16)
[2020-10-29] MEDS ORDERED: MEROPENEM 1 GM VIAL (RESTRICTED TO ID) IVPB ONE ×3 (00:34→17:16)
[2020-10-29] MEDS: SODIUM CHLORIDE 1,000 ML IV SCH (01:59)
[2020-10-29] MEDS: MEROPENEM 1 GM in DEXTROSE 5%-WATER 100 ML IVPB SCH ×3 (02:00→17:35)
[2020-10-29] MEDS: INSULIN SLIDING SCALE (NOVOLOG) 1 VIAL SQ SCH ×3 (06:16→17:12)
[2020-10-29 08:03] LABS: BASO % 1.2 % (0-2.0); EOS % 7.7 % (0-4.5); HEMATOCRIT 28.2 % (35.4-49); HEMOGLOBIN 9.7 GM/dL (11.7-16.9); MCHC 34.5 g/dl (32.0-35.9); MEAN CELL VOLUME 89.8 fl (80-96); MEAN PLT VOLUME 8.2 fl (7.5-11.1); MONO % 12.9 % (3.8-10.2); NEUT % 55.2 % (42.8-82.8); PLATELET COUNT 205 10^3/uL (134-434); RBC 3.14 M/mm3 (4.00-5.60); RDW 14.2 % (11.9-15.9); WHITE BLOOD COUNT 5.1 K/mm3 (4.0-10.0)
[2020-10-29 08:15] LABS: CALCIUM 8.4 mg/dL (8.5-10.1)
[2020-10-29 08:17] LABS: ALBUMIN 2.3 g/dl (3.4-5.0); BLOOD UREA NITROGEN 16.6 mg/dL (7-18)
[2020-10-29 08:19] LABS: CREATININE 0.8 mg/dL (0.55-1.3)
[2020-10-29 08:20] LABS: TOT PROT 6.2 g/dl (6.4-8.2)
[2020-10-29 08:41] LABS: BILIRUBIN,TOTAL 0.4 mg/dL (0.2-1)
[2020-10-29] MEDS: risperiDONE 0.25 MG TABLET PO SCH ×2 (10:03→22:51)
[2020-10-29] MEDS: POLYETHYLENE GLYCOL (HEALTHYLAX) 3350 17 GM PACKET PO SCH (10:04)
[2020-10-29] MEDS: BACITRACIN 15 GM TUBE TOPICAL OINTMENT TP SCH (10:04)
[2020-10-29] MEDS: AMINO ACIDS/PROTEIN HYDROLYS 30 ML LIQUID.PKT PO SCH ×2 (10:04→17:12)
[2020-10-29] MEDS: metoPROLOL SUCCINATE 25 MG TAB.SR.24H (FP) PO SCH (10:05)
[2020-10-29] MEDS: APIXABAN 2.5 MG TABLET PO SCH ×2 (10:06→22:52)
[2020-10-29] MEDS: TAMSULOSIN HCL 0.4 MG CAP PO SCH (10:06)
[2020-10-29] MEDS ORDERED: HALOPERIDOL LACTATE 5 MG/ML IM PRN (11:51)
[2020-10-29] MEDS ORDERED: PT OWN MED DRAWER 7, Y5N ONE (19:57)
[2020-10-29] MEDS: ATORVASTATIN CA 20 MG TABLET (FP) PO SCH (22:51)
[2020-10-29] MEDS: QUEtiapine FUMARATE 25 MG TABLET PO PRN (22:51)
[2020-10-30] MEDS: MEROPENEM 1 GM in DEXTROSE 5%-WATER 100 ML IVPB SCH ×3 (02:03→17:56)
[2020-10-30] MEDS: INSULIN SLIDING SCALE (NOVOLOG) 1 VIAL SQ SCH ×3 (07:25→17:55)
[2020-10-30] MEDS: SODIUM CHLORIDE 1,000 ML IV SCH ×2 (07:27→22:00)
[2020-10-30 08:24] LABS: BASO % 0.8 % (0-2.0); EOS % 7.2 % (0-4.5); HEMATOCRIT 27.1 % (35.4-49); HEMOGLOBIN 9.5 GM/dL (11.7-16.9); LYMPH % 25.2 % (8-40); MCHC 35.2 g/dl (32.0-35.9); MEAN CELL VOLUME 87.9 fl (80-96); MEAN PLT VOLUME 8.1 fl (7.5-11.1); MONO % 12.2 % (3.8-10.2); NEUT % 54.6 % (42.8-82.8); PLATELET COUNT 198 10^3/uL (134-434); RBC 3.08 M/mm3 (4.00-5.60); RDW 14.3 % (11.9-15.9); WHITE BLOOD COUNT 5.5 K/mm3 (4.0-10.0)
[2020-10-30] MEDS ORDERED: MEROPENEM 1 GM VIAL (RESTRICTED TO ID) IVPB ONE ×2 (08:42→17:23)
[2020-10-30] MEDS ORDERED: DEXTROSE 5%-WATER 100 ML IVPB ONE ×2 (08:43→17:24)
[2020-10-30] MEDS: TAMSULOSIN HCL 0.4 MG CAP PO SCH (08:47)
[2020-10-30] MEDS: AMINO ACIDS/PROTEIN HYDROLYS 30 ML LIQUID.PKT PO SCH ×2 (08:47→17:34)
[2020-10-30 08:53] LABS: ALBUMIN 2.3 g/dl (3.4-5.0); BILIRUBIN,TOTAL 0.2 mg/dL (0.2-1); BLOOD UREA NITROGEN 20.6 mg/dL (7-18); CALCIUM 8.3 mg/dL (8.5-10.1); CREATININE 0.7 mg/dL (0.55-1.3); TOT PROT 6.2 g/dl (6.4-8.2)
[2020-10-30] MEDS: BACITRACIN 15 GM TUBE TOPICAL OINTMENT TP SCH (10:29)
[2020-10-30] MEDS: metoPROLOL SUCCINATE 25 MG TAB.SR.24H (FP) PO SCH (10:33)
[2020-10-30] MEDS: risperiDONE 0.25 MG TABLET PO SCH ×2 (10:33→21:46)
[2020-10-30] MEDS: POLYETHYLENE GLYCOL (HEALTHYLAX) 3350 17 GM PACKET PO SCH (10:35)
[2020-10-30] MEDS ORDERED: PT OWN MED DRAWER 7, Y5N ONE (21:44)
[2020-10-30] MEDS: ATORVASTATIN CA 20 MG TABLET (FP) PO SCH (21:46)
[2020-10-30] MEDS: QUEtiapine FUMARATE 25 MG TABLET PO PRN (21:46)
[2020-10-31] MEDS ORDERED: DEXTROSE 5%-WATER 100 ML IVPB ONE ×3 (00:17→17:11)
[2020-10-31] MEDS ORDERED: MEROPENEM 1 GM VIAL (RESTRICTED TO ID) IVPB ONE ×3 (00:17→17:11)
[2020-10-31] MEDS: MEROPENEM 1 GM in DEXTROSE 5%-WATER 100 ML IVPB SCH ×3 (02:25→17:24)
[2020-10-31] MEDS: SODIUM CHLORIDE 1,000 ML IV SCH ×2 (06:40→22:12)
[2020-10-31] MEDS: INSULIN SLIDING SCALE (NOVOLOG) 1 VIAL SQ SCH ×3 (06:42→17:23)
[2020-10-31] MEDS: TAMSULOSIN HCL 0.4 MG CAP PO SCH (08:00)
[2020-10-31] MEDS: AMINO ACIDS/PROTEIN HYDROLYS 30 ML LIQUID.PKT PO SCH ×2 (09:00→17:23)
[2020-10-31] MEDS: metoPROLOL SUCCINATE 25 MG TAB.SR.24H (FP) PO SCH (10:00)
[2020-10-31] MEDS: POLYETHYLENE GLYCOL (HEALTHYLAX) 3350 17 GM PACKET PO SCH (10:00)
[2020-10-31] MEDS: BACITRACIN 15 GM TUBE TOPICAL OINTMENT TP SCH (10:00)
[2020-10-31] MEDS: risperiDONE 0.25 MG TABLET PO SCH ×2 (10:00→22:04)
[2020-10-31 11:24] LABS: BASO % 0.6 % (0-2.0); EOS % 8.1 % (0-4.5); HEMATOCRIT 27.5 % (35.4-49); HEMOGLOBIN 9.5 GM/dL (11.7-16.9); LYMPH % 31.3 % (8-40); MCH 30.9 pg (25.7-33.7); MCHC 34.6 g/dl (32.0-35.9); MEAN CELL VOLUME 89.3 fl (80-96); MEAN PLT VOLUME 8.2 fl (7.5-11.1); PLATELET COUNT 202 10^3/uL (134-434); RBC 3.08 M/mm3 (4.00-5.60); RDW 14.3 % (11.9-15.9); WHITE BLOOD COUNT 5.4 K/mm3 (4.0-10.0)
[2020-10-31 11:45] LABS: ALBUMIN 2.3 g/dl (3.4-5.0); BLOOD UREA NITROGEN 15.8 mg/dL (7-18); CALCIUM 8.3 mg/dL (8.5-10.1); MAGNESIUM 1.9 mg/dL (1.8-2.4)
[2020-10-31 11:48] LABS: CREATININE 0.8 mg/dL (0.55-1.3)
[2020-10-31 11:49] LABS: PHOSPHOROUS 2.8 mg/dL (2.5-4.9)
[2020-10-31 11:50] LABS: BILIRUBIN,TOTAL 0.4 mg/dL (0.2-1); TOT PROT 6.1 g/dl (6.4-8.2)
[2020-10-31] MEDS ORDERED: PT OWN MED DRAWER 7, Y5N ONE (21:10)
[2020-10-31] MEDS: ATORVASTATIN CA 20 MG TABLET (FP) PO SCH (22:04)
[2020-10-31] MEDS: QUEtiapine FUMARATE 25 MG TABLET PO PRN (22:04)
[2020-11-01] MEDS ORDERED: MEROPENEM 1 GM VIAL (RESTRICTED TO ID) IVPB ONE ×3 (01:00→17:58)
[2020-11-01] MEDS ORDERED: DEXTROSE 5%-WATER 100 ML IVPB ONE ×3 (01:00→17:58)
[2020-11-01] MEDS: MEROPENEM 1 GM in DEXTROSE 5%-WATER 100 ML IVPB SCH ×3 (01:26→18:10)
[2020-11-01] MEDS: INSULIN SLIDING SCALE (NOVOLOG) 1 VIAL SQ SCH ×3 (06:01→18:10)
[2020-11-01 08:01] LABS: BASO % 0.6 % (0-2.0); EOS % 5.7 % (0-4.5); LYMPH % 21.4 % (8-40); MCH 30.8 pg (25.7-33.7); MCHC 34.5 g/dl (32.0-35.9); MEAN CELL VOLUME 89.3 fl (80-96); MEAN PLT VOLUME 8.2 fl (7.5-11.1); MONO % 9.2 % (3.8-10.2); NEUT % 63.1 % (42.8-82.8); PLATELET COUNT 216 10^3/uL (134-434); RBC 3.25 M/mm3 (4.00-5.60); RDW 14.1 % (11.9-15.9); WHITE BLOOD COUNT 7.8 K/mm3 (4.0-10.0)
[2020-11-01 08:26] LABS: CALCIUM 8.7 mg/dL (8.5-10.1)
[2020-11-01 08:27] LABS: ALBUMIN 2.5 g/dl (3.4-5.0); BLOOD UREA NITROGEN 17.4 mg/dL (7-18); MAGNESIUM 2.1 mg/dL (1.8-2.4)
[2020-11-01 08:30] LABS: BILIRUBIN,TOTAL 0.3 mg/dL (0.2-1); CREATININE 0.7 mg/dL (0.55-1.3); TOT PROT 6.5 g/dl (6.4-8.2)
[2020-11-01] MEDS ORDERED: PT OWN MED DRAWER 7, Y5N ONE ×2 (09:12→20:35)
[2020-11-01] MEDS ORDERED: APIXABAN 2.5 MG TABLET PO SCH (10:00)
[2020-11-01] MEDS: risperiDONE 0.25 MG TABLET PO SCH ×2 (10:02→21:21)
[2020-11-01] MEDS: metoPROLOL SUCCINATE 25 MG TAB.SR.24H (FP) PO SCH (10:02)
[2020-11-01] MEDS: BACITRACIN 15 GM TUBE TOPICAL OINTMENT TP SCH (10:03)
[2020-11-01] MEDS: TAMSULOSIN HCL 0.4 MG CAP PO SCH (10:03)
[2020-11-01] MEDS: POLYETHYLENE GLYCOL (HEALTHYLAX) 3350 17 GM PACKET PO SCH (10:03)
[2020-11-01] MEDS: AMINO ACIDS/PROTEIN HYDROLYS 30 ML LIQUID.PKT PO SCH ×2 (10:04→18:10)
[2020-11-01] MEDS: ATORVASTATIN CA 20 MG TABLET (FP) PO SCH (21:19)
[2020-11-01] MEDS: SODIUM CHLORIDE 1,000 ML IV SCH (21:23)
[2020-11-01] MEDS: QUEtiapine FUMARATE 25 MG TABLET PO PRN (22:28)
[2020-11-02] MEDS ORDERED: DEXTROSE 5%-WATER 100 ML IVPB ONE ×3 (02:02→19:18)
[2020-11-02] MEDS ORDERED: MEROPENEM 1 GM VIAL (RESTRICTED TO ID) IVPB ONE ×3 (02:02→19:18)
[2020-11-02] MEDS: SODIUM CHLORIDE 1,000 ML IV SCH ×2 (02:16→19:19)
[2020-11-02] MEDS: MEROPENEM 1 GM in DEXTROSE 5%-WATER 100 ML IVPB SCH ×3 (02:16→19:19)
[2020-11-02] MEDS: INSULIN SLIDING SCALE (NOVOLOG) 1 VIAL SQ SCH ×3 (06:17→16:43)
[2020-11-02] MEDS: AMINO ACIDS/PROTEIN HYDROLYS 30 ML LIQUID.PKT PO SCH ×2 (10:09→17:31)
[2020-11-02] MEDS: POLYETHYLENE GLYCOL (HEALTHYLAX) 3350 17 GM PACKET PO SCH (10:11)
[2020-11-02] MEDS: TAMSULOSIN HCL 0.4 MG CAP PO SCH (10:18)
[2020-11-02] MEDS: risperiDONE 0.25 MG TABLET PO SCH ×2 (10:18→21:13)
[2020-11-02] MEDS: metoPROLOL SUCCINATE 25 MG TAB.SR.24H (FP) PO SCH (10:18)
[2020-11-02] MEDS: BACITRACIN 15 GM TUBE TOPICAL OINTMENT TP SCH (10:19)
[2020-11-02] MEDS ORDERED: PT OWN MED DRAWER 7, Y5N ONE (11:25)
[2020-11-02 11:56] LABS: BASO % 0.8 % (0-2.0); EOS % 6.8 % (0-4.5); HEMATOCRIT 27.6 % (35.4-49); HEMOGLOBIN 9.5 GM/dL (11.7-16.9); LYMPH % 16.6 % (8-40); MCH 30.8 pg (25.7-33.7); MCHC 34.5 g/dl (32.0-35.9); MEAN CELL VOLUME 89.2 fl (80-96); MEAN PLT VOLUME 7.9 fl (7.5-11.1); MONO % 9.9 % (3.8-10.2); NEUT % 65.9 % (42.8-82.8); PLATELET COUNT 185 10^3/uL (134-434); RBC 3.09 M/mm3 (4.00-5.60); RDW 14.9 % (11.9-15.9); WHITE BLOOD COUNT 5.5 K/mm3 (4.0-10.0)
[2020-11-02 12:19] LABS: ALBUMIN 2.3 g/dl (3.4-5.0); BLOOD UREA NITROGEN 13.4 mg/dL (7-18); CALCIUM 8.5 mg/dL (8.5-10.1); MAGNESIUM 2.1 mg/dL (1.8-2.4)
[2020-11-02 12:22] LABS: CREATININE 0.7 mg/dL (0.55-1.3)
[2020-11-02 12:23] LABS: PHOSPHOROUS 2.8 mg/dL (2.5-4.9)
[2020-11-02 12:24] LABS: BILIRUBIN,TOTAL 0.5 mg/dL (0.2-1); TOT PROT 6.1 g/dl (6.4-8.2)
[2020-11-02] MEDS ORDERED: PROPOFOL 20 ML ONE (15:06)
[2020-11-02] MEDS ORDERED: ONDANSETRON 4 MG/2 ML VIAL IVPUSH PRN ×2 (16:11→17:49)
[2020-11-02] MEDS ORDERED: LACTATED RINGERS SOLUTION 1,000 ML IV SCH ×2 (16:15→17:49)
[2020-11-02] MEDS: ATORVASTATIN CA 20 MG TABLET (FP) PO SCH (21:13)
[2020-11-02] MEDS: QUEtiapine FUMARATE 25 MG TABLET PO PRN (21:14)
[2020-11-03] MEDS ORDERED: METOPROLOL TARTRATE 5 MG/5 ML VIAL IVPUSH ONE ×2 (00:02→02:33)
[2020-11-03] MEDS ORDERED: POTASSIUM CHLORIDE TABS 20 MEQ TABLET.ER (FP) PO ONE (00:22)
[2020-11-03] MEDS ORDERED: ACETAMINOPHEN 1000 MG/100 ML VIAL (NON FORMULARY) IVPB ONE (02:47)
[2020-11-03] MEDS ORDERED: QUEtiapine FUMARATE 25 MG TABLET PO ONE (02:51)
[2020-11-03] MEDS ORDERED: DEXTROSE 5%-WATER 100 ML IVPB ONE ×3 (02:56→17:07)
[2020-11-03] MEDS ORDERED: MEROPENEM 1 GM VIAL (RESTRICTED TO ID) IVPB ONE ×3 (02:56→17:07)
[2020-11-03] MEDS: MEROPENEM 1 GM in DEXTROSE 5%-WATER 100 ML IVPB SCH ×3 (03:21→17:12)
[2020-11-03] MEDS: INSULIN SLIDING SCALE (NOVOLOG) 1 VIAL SQ SCH ×2 (06:08→11:14)
[2020-11-03] MEDS: AMINO ACIDS/PROTEIN HYDROLYS 30 ML LIQUID.PKT PO SCH ×2 (08:11→17:12)
[2020-11-03] MEDS: TAMSULOSIN HCL 0.4 MG CAP PO SCH (08:11)
[2020-11-03 09:15] LABS: BASO % 0.4 % (0-2.0); EOS % 1.3 % (0-4.5); HEMOGLOBIN 9.5 GM/dL (11.7-16.9); LYMPH % 10.8 % (8-40); MCH 30.5 pg (25.7-33.7); MCHC 33.8 g/dl (32.0-35.9); MEAN CELL VOLUME 90.3 fl (80-96); MEAN PLT VOLUME 8.4 fl (7.5-11.1); MONO % 8.2 % (3.8-10.2); NEUT % 79.3 % (42.8-82.8); PLATELET COUNT 215 10^3/uL (134-434); RBC 3.11 M/mm3 (4.00-5.60); RDW 14.9 % (11.9-15.9); WHITE BLOOD COUNT 13.1 K/mm3 (4.0-10.0)
[2020-11-03] MEDS ORDERED: PT OWN MED DRAWER 7, Y5N ONE ×2 (09:18→20:59)
[2020-11-03] MEDS: risperiDONE 0.25 MG TABLET PO SCH ×2 (09:22→21:08)
[2020-11-03] MEDS: POLYETHYLENE GLYCOL (HEALTHYLAX) 3350 17 GM PACKET PO SCH (09:23)
[2020-11-03 09:35] LABS: ALBUMIN 2.3 g/dl (3.4-5.0); BLOOD UREA NITROGEN 18.4 mg/dL (7-18); CALCIUM 8.4 mg/dL (8.5-10.1)
[2020-11-03 09:41] LABS: BILIRUBIN,TOTAL 0.5 mg/dL (0.2-1); PHOSPHOROUS 3.1 mg/dL (2.5-4.9); TOT PROT 6.2 g/dl (6.4-8.2)
[2020-11-03] MEDS ORDERED: metoPROLOL SUCCINATE 25 MG TAB.SR.24H (FP) PO SCH (10:00)
[2020-11-03] MEDS: SODIUM CHLORIDE 1,000 ML IV SCH (11:07)
[2020-11-03] MEDS ORDERED: DEXTROSE 5%-WATER - 50 ML IVPB ONE (11:11)
[2020-11-03] MEDS ORDERED: AZTREONAM 1 GM VIAL (RESTRICTED TO ID) ONE (11:11)
[2020-11-03] MEDS: BACITRACIN 15 GM TUBE TOPICAL OINTMENT TP SCH (11:12)
[2020-11-03] MEDS ORDERED: AZTREONAM 1 GM in DEXTROSE 5%-WATER - 50 ML IVPB ONE (11:15)
[2020-11-03] MEDS: QUEtiapine FUMARATE 25 MG TABLET PO PRN (21:08)
[2020-11-03] MEDS: APIXABAN 2.5 MG TABLET PO SCH (21:08)
[2020-11-03] MEDS: ATORVASTATIN CA 20 MG TABLET (FP) PO SCH (21:08)
[2020-11-04] MEDS ORDERED: DEXTROSE 5%-WATER 100 ML IVPB ONE ×2 (00:44→10:57)
[2020-11-04] MEDS ORDERED: MEROPENEM 1 GM VIAL (RESTRICTED TO ID) IVPB ONE ×3 (00:44→18:14)
[2020-11-04] MEDS: MEROPENEM 1 GM in DEXTROSE 5%-WATER 100 ML IVPB SCH ×3 (02:54→18:20)
[2020-11-04] MEDS: SODIUM CHLORIDE 1,000 ML IV SCH ×3 (02:54→17:44)
[2020-11-04] MEDS: TAMSULOSIN HCL 0.4 MG CAP PO SCH (08:14)
[2020-11-04] MEDS: AMINO ACIDS/PROTEIN HYDROLYS 30 ML LIQUID.PKT PO SCH ×3 (08:14→18:19)
[2020-11-04] MEDS: BACITRACIN 15 GM TUBE TOPICAL OINTMENT TP SCH (10:45)
[2020-11-04] MEDS ORDERED: PT OWN MED DRAWER 7, Y5N ONE ×2 (10:58→20:36)
[2020-11-04] MEDS: metoPROLOL SUCCINATE 25 MG TAB.SR.24H (FP) PO SCH (11:00)
[2020-11-04] MEDS: APIXABAN 2.5 MG TABLET PO SCH ×2 (11:00→21:24)
[2020-11-04] MEDS: risperiDONE 0.25 MG TABLET PO SCH ×2 (11:01→21:24)
[2020-11-04] MEDS: POLYETHYLENE GLYCOL (HEALTHYLAX) 3350 17 GM PACKET PO SCH (11:02)
[2020-11-04 13:22] LABS: BASO % 0.3 % (0-2.0); EOS % 1.1 % (0-4.5); HEMATOCRIT 25.7 % (35.4-49); HEMOGLOBIN 8.8 GM/dL (11.7-16.9); MCH 30.3 pg (25.7-33.7); MCHC 34.1 g/dl (32.0-35.9); MEAN PLT VOLUME 8.4 fl (7.5-11.1); MONO % 8.2 % (3.8-10.2); NEUT % 83.4 % (42.8-82.8); PLATELET COUNT 205 10^3/uL (134-434); RBC 2.89 M/mm3 (4.00-5.60); RDW 14.8 % (11.9-15.9); WHITE BLOOD COUNT 12.8 K/mm3 (4.0-10.0)
[2020-11-04] MEDS: ATORVASTATIN CA 20 MG TABLET (FP) PO SCH (21:24)
[2020-11-05] MEDS: MEROPENEM 1 GM in DEXTROSE 5%-WATER 100 ML IVPB SCH ×3 (03:30→17:42)
[2020-11-05] MEDS ORDERED: MEROPENEM 1 GM VIAL (RESTRICTED TO ID) IVPB ONE ×3 (03:57→16:51)
[2020-11-05] MEDS: SODIUM CHLORIDE 1,000 ML IV SCH ×3 (04:00→17:44)
[2020-11-05 06:54] LABS: BASO % 0.5 % (0-2.0); EOS % 4.1 % (0-4.5); HEMATOCRIT 26.2 % (35.4-49); HEMOGLOBIN 9.2 GM/dL (11.7-16.9); LYMPH % 16.5 % (8-40); MCH 31.1 pg (25.7-33.7); MCHC 35.2 g/dl (32.0-35.9); MEAN CELL VOLUME 88.3 fl (80-96); MEAN PLT VOLUME 8.7 fl (7.5-11.1); MONO % 11.1 % (3.8-10.2); NEUT % 67.8 % (42.8-82.8); PLATELET COUNT 213 10^3/uL (134-434); RBC 2.97 M/mm3 (4.00-5.60); RDW 14.7 % (11.9-15.9); WHITE BLOOD COUNT 8.4 K/mm3 (4.0-10.0)
[2020-11-05 07:09] LABS: BLOOD UREA NITROGEN 21.6 mg/dL (7-18); CALCIUM 7.9 mg/dL (8.5-10.1)
[2020-11-05 07:10] LABS: MAGNESIUM 1.7 mg/dL (1.8-2.4)
[2020-11-05 07:12] LABS: PHOSPHOROUS 2.8 mg/dL (2.5-4.9)
[2020-11-05 07:14] LABS: BILIRUBIN,TOTAL 0.4 mg/dL (0.2-1); TOT PROT 6.1 g/dl (6.4-8.2)
[2020-11-05] MEDS: AMINO ACIDS/PROTEIN HYDROLYS 30 ML LIQUID.PKT PO SCH ×2 (08:09→17:43)
[2020-11-05] MEDS: TAMSULOSIN HCL 0.4 MG CAP PO SCH (08:09)
[2020-11-05] MEDS ORDERED: DEXTROSE 5%-WATER 100 ML IVPB ONE ×2 (09:02→16:51)
[2020-11-05] MEDS: POLYETHYLENE GLYCOL (HEALTHYLAX) 3350 17 GM PACKET PO SCH (10:02)
[2020-11-05] MEDS: APIXABAN 2.5 MG TABLET PO SCH ×2 (10:02→23:53)
[2020-11-05] MEDS: metoPROLOL SUCCINATE 25 MG TAB.SR.24H (FP) PO SCH ×2 (10:02→23:53)
[2020-11-05] MEDS: BACITRACIN 15 GM TUBE TOPICAL OINTMENT TP SCH (10:03)
[2020-11-05] MEDS: risperiDONE 0.25 MG TABLET PO SCH ×2 (10:07→23:54)
[2020-11-05] MEDS ORDERED: PT OWN MED DRAWER 7, Y5N ONE (10:07)
[2020-11-05] MEDS: ATORVASTATIN CA 20 MG TABLET (FP) PO SCH (23:53)
[2020-11-06] MEDS: MEROPENEM 1 GM in DEXTROSE 5%-WATER 100 ML IVPB SCH ×3 (03:09→17:10)
[2020-11-06 07:47] LABS: BASO % 0.6 % (0-2.0); EOS % 6.6 % (0-4.5); HEMATOCRIT 25.8 % (35.4-49); LYMPH % 20.2 % (8-40); MCH 30.7 pg (25.7-33.7); MCHC 34.9 g/dl (32.0-35.9); MEAN PLT VOLUME 8.1 fl (7.5-11.1); MONO % 14.1 % (3.8-10.2); NEUT % 58.5 % (42.8-82.8); PLATELET COUNT 249 10^3/uL (134-434); RBC 2.93 M/mm3 (4.00-5.60); RDW 14.8 % (11.9-15.9); WHITE BLOOD COUNT 5.9 K/mm3 (4.0-10.0)
[2020-11-06 07:59] LABS: BLOOD UREA NITROGEN 23.6 mg/dL (7-18); CALCIUM 8.1 mg/dL (8.5-10.1); MAGNESIUM 1.8 mg/dL (1.8-2.4)
[2020-11-06 08:02] LABS: CREATININE 0.7 mg/dL (0.55-1.3)
[2020-11-06 08:03] LABS: BILIRUBIN,TOTAL 0.4 mg/dL (0.2-1); TOT PROT 5.8 g/dl (6.4-8.2)
[2020-11-06] MEDS: TAMSULOSIN HCL 0.4 MG CAP PO SCH (08:30)
[2020-11-06] MEDS: AMINO ACIDS/PROTEIN HYDROLYS 30 ML LIQUID.PKT PO SCH ×3 (08:30→16:58)
[2020-11-06] MEDS ORDERED: MEROPENEM 1 GM VIAL (RESTRICTED TO ID) IVPB ONE ×2 (08:55→16:46)
[2020-11-06] MEDS ORDERED: DEXTROSE 5%-WATER 100 ML IVPB ONE ×2 (08:55→16:46)
[2020-11-06] MEDS: metoPROLOL SUCCINATE 25 MG TAB.SR.24H (FP) PO SCH ×2 (09:39→21:58)
[2020-11-06] MEDS: APIXABAN 2.5 MG TABLET PO SCH ×2 (09:39→21:58)
[2020-11-06] MEDS: BACITRACIN 15 GM TUBE TOPICAL OINTMENT TP SCH (09:41)
[2020-11-06] MEDS: POLYETHYLENE GLYCOL (HEALTHYLAX) 3350 17 GM PACKET PO SCH (09:41)
[2020-11-06] MEDS: risperiDONE 0.25 MG TABLET PO SCH ×2 (09:43→21:58)
[2020-11-06] MEDS ORDERED: PT OWN MED DRAWER 7, Y5N ONE ×2 (09:43→20:56)
[2020-11-06] MEDS ORDERED: MAGNESIUM SULF 50% (8.12 MEQ/2 ML-1 GM VIAL) IVPB ONE (09:47)
[2020-11-06] MEDS: SODIUM CHLORIDE 1,000 ML IV SCH (17:10)
[2020-11-06] MEDS: ATORVASTATIN CA 20 MG TABLET (FP) PO SCH (21:58)
[2020-11-07] MEDS ORDERED: MEROPENEM 1 GM VIAL (RESTRICTED TO ID) IVPB ONE ×3 (01:20→17:30)
[2020-11-07] MEDS ORDERED: DEXTROSE 5%-WATER 100 ML IVPB ONE ×3 (01:21→17:30)
[2020-11-07] MEDS: MEROPENEM 1 GM in DEXTROSE 5%-WATER 100 ML IVPB SCH ×3 (01:26→17:45)
[2020-11-07 07:08] LABS: BASO % 0.5 % (0-2.0); HEMATOCRIT 26.2 % (35.4-49); HEMOGLOBIN 9.2 GM/dL (11.7-16.9); LYMPH % 21.2 % (8-40); MCH 30.9 pg (25.7-33.7); MCHC 35.2 g/dl (32.0-35.9); MEAN CELL VOLUME 87.9 fl (80-96); MEAN PLT VOLUME 7.6 fl (7.5-11.1); MONO % 15.8 % (3.8-10.2); NEUT % 55.5 % (42.8-82.8); PLATELET COUNT 285 10^3/uL (134-434); RBC 2.98 M/mm3 (4.00-5.60); RDW 14.5 % (11.9-15.9); WHITE BLOOD COUNT 6.7 K/mm3 (4.0-10.0)
[2020-11-07 07:38] LABS: BLOOD UREA NITROGEN 22.1 mg/dL (7-18); CALCIUM 7.8 mg/dL (8.5-10.1); MAGNESIUM 2.1 mg/dL (1.8-2.4)
[2020-11-07 07:41] LABS: CREATININE 0.8 mg/dL (0.55-1.3)
[2020-11-07 07:42] LABS: PHOSPHOROUS 3.3 mg/dL (2.5-4.9)
[2020-11-07 07:43] LABS: BILIRUBIN,TOTAL 0.4 mg/dL (0.2-1); TOT PROT 5.9 g/dl (6.4-8.2)
[2020-11-07] MEDS: AMINO ACIDS/PROTEIN HYDROLYS 30 ML LIQUID.PKT PO SCH ×2 (09:00→17:46)
[2020-11-07] MEDS: POLYETHYLENE GLYCOL (HEALTHYLAX) 3350 17 GM PACKET PO SCH (09:21)
[2020-11-07] MEDS: APIXABAN 2.5 MG TABLET PO SCH ×2 (09:22→22:30)
[2020-11-07] MEDS: metoPROLOL SUCCINATE 25 MG TAB.SR.24H (FP) PO SCH ×2 (09:22→22:30)
[2020-11-07] MEDS: TAMSULOSIN HCL 0.4 MG CAP PO SCH (09:22)
[2020-11-07] MEDS: BACITRACIN 15 GM TUBE TOPICAL OINTMENT TP SCH (09:24)
[2020-11-07] MEDS: risperiDONE 0.25 MG TABLET PO SCH ×2 (09:26→22:30)
[2020-11-07] MEDS ORDERED: PT OWN MED DRAWER 7, Y5N ONE (22:28)
[2020-11-07] MEDS: ZINC OXIDE 20% TOPICAL OINTMENT 30 GM TUBE TP SCH (22:30)
[2020-11-07] MEDS: ATORVASTATIN CA 20 MG TABLET (FP) PO SCH (22:30)
[2020-11-08] MEDS ORDERED: MEROPENEM 1 GM VIAL (RESTRICTED TO ID) IVPB ONE ×3 (01:49→17:55)
[2020-11-08] MEDS ORDERED: DEXTROSE 5%-WATER 100 ML IVPB ONE ×2 (01:49→09:13)
[2020-11-08] MEDS: MEROPENEM 1 GM in DEXTROSE 5%-WATER 100 ML IVPB SCH ×3 (01:57→18:09)
[2020-11-08] MEDS ORDERED: PT OWN MED DRAWER 7, Y5N ONE ×2 (09:16→20:05)
[2020-11-08] MEDS: TAMSULOSIN HCL 0.4 MG CAP PO SCH (09:21)
[2020-11-08] MEDS: metoPROLOL SUCCINATE 25 MG TAB.SR.24H (FP) PO SCH ×2 (09:21→22:10)
[2020-11-08] MEDS: POLYETHYLENE GLYCOL (HEALTHYLAX) 3350 17 GM PACKET PO SCH (09:21)
[2020-11-08] MEDS: AMINO ACIDS/PROTEIN HYDROLYS 30 ML LIQUID.PKT PO SCH ×2 (09:22→18:09)
[2020-11-08] MEDS: APIXABAN 2.5 MG TABLET PO SCH ×2 (09:22→22:10)
[2020-11-08] MEDS: risperiDONE 0.25 MG TABLET PO SCH ×2 (09:22→22:10)
[2020-11-08] MEDS: BACITRACIN 15 GM TUBE TOPICAL OINTMENT TP SCH (09:43)
[2020-11-08] MEDS: ZINC OXIDE 20% TOPICAL OINTMENT 30 GM TUBE TP SCH ×2 (09:44→22:10)
[2020-11-08] MEDS: SODIUM CHLORIDE 1,000 ML IV SCH (18:08)
[2020-11-08] MEDS: ATORVASTATIN CA 20 MG TABLET (FP) PO SCH (22:10)
[2020-11-09] MEDS ORDERED: MEROPENEM 1 GM VIAL (RESTRICTED TO ID) IVPB ONE ×2 (00:42→10:13)
[2020-11-09] MEDS: MEROPENEM 1 GM in DEXTROSE 5%-WATER 100 ML IVPB SCH ×2 (01:02→10:51)
[2020-11-09] MEDS: SODIUM CHLORIDE 1,000 ML IV SCH ×3 (09:40→21:37)
[2020-11-09] MEDS ORDERED: DEXTROSE 5%-WATER 100 ML IVPB ONE (10:13)
[2020-11-09] MEDS ORDERED: PT OWN MED DRAWER 7, Y5N ONE (10:14)
[2020-11-09] MEDS: metoPROLOL SUCCINATE 25 MG TAB.SR.24H (FP) PO SCH ×2 (10:50→21:38)
[2020-11-09] MEDS: APIXABAN 2.5 MG TABLET PO SCH ×2 (10:50→21:38)
[2020-11-09] MEDS: risperiDONE 0.25 MG TABLET PO SCH ×2 (10:51→21:38)
[2020-11-09] MEDS: TAMSULOSIN HCL 0.4 MG CAP PO SCH (10:51)
[2020-11-09] MEDS: ZINC OXIDE 20% TOPICAL OINTMENT 30 GM TUBE TP SCH ×2 (10:52→21:42)
[2020-11-09] MEDS: BACITRACIN 15 GM TUBE TOPICAL OINTMENT TP SCH (10:52)
[2020-11-09] MEDS: POLYETHYLENE GLYCOL (HEALTHYLAX) 3350 17 GM PACKET PO SCH (10:52)
[2020-11-09] MEDS: AMINO ACIDS/PROTEIN HYDROLYS 30 ML LIQUID.PKT PO SCH ×2 (10:52→17:52)
[2020-11-09] MEDS: QUEtiapine FUMARATE 25 MG TABLET PO PRN (21:37)
[2020-11-09] MEDS: ATORVASTATIN CA 20 MG TABLET (FP) PO SCH (21:38)
[2020-11-10] MEDS: metoPROLOL SUCCINATE 25 MG TAB.SR.24H (FP) PO SCH ×2 (09:55→21:26)
[2020-11-10] MEDS: AMINO ACIDS/PROTEIN HYDROLYS 30 ML LIQUID.PKT PO SCH ×2 (09:55→17:02)
[2020-11-10] MEDS: BACITRACIN 15 GM TUBE TOPICAL OINTMENT TP SCH (09:56)
[2020-11-10] MEDS: APIXABAN 2.5 MG TABLET PO SCH ×2 (09:56→21:26)
[2020-11-10] MEDS: POLYETHYLENE GLYCOL (HEALTHYLAX) 3350 17 GM PACKET PO SCH (09:56)
[2020-11-10] MEDS: TAMSULOSIN HCL 0.4 MG CAP PO SCH (09:56)
[2020-11-10] MEDS: risperiDONE 0.25 MG TABLET PO SCH ×2 (09:58→21:27)
[2020-11-10] MEDS: ZINC OXIDE 20% TOPICAL OINTMENT 30 GM TUBE TP SCH ×2 (09:58→21:27)
[2020-11-10] MEDS ORDERED: PT OWN MED DRAWER 7, Y5N ONE (20:51)
[2020-11-10] MEDS: ATORVASTATIN CA 20 MG TABLET (FP) PO SCH (21:26)
[2020-11-10] MEDS: SODIUM CHLORIDE 1,000 ML IV SCH (21:27)
[2020-11-10 21:30] VITALS: BP 140/85; PULSE 89; TEMP 97.8
== END 2020-11-10 22:15 | disposition home or self-care (01) | DRG 659 ==
LOC: JER 12:55 → JERBED 13:42 → J6S 21:07 → J4S 23:17 → J4W 10-28 21:35
PROVIDERS: ADMIT Internal Medicine; ATTEND Internal Medicine
PROC: 0T778DZ Dilation of Left Ureter with Intraluminal Device, Via Natural or Artificial Opening Endoscopic (ICD-10-PCS; principal; 2020-11-02 15:30)
DX: N13.6 Pyonephrosis (principal); G93.41 Metabolic encephalopathy; I69.354 Hemiplegia and hemiparesis following cerebral infarction affecting left non-dominant side; F03.90 Unspecified dementia, unspecified severity, without behavioral disturbance, psychotic disturbance, mood disturbance, and anxiety; L89.152 Pressure ulcer of sacral region, stage 2; E11.9 Type 2 diabetes mellitus without complications; K56.41 Fecal impaction; E78.5 Hyperlipidemia, unspecified; I48.91 Unspecified atrial fibrillation; N40.0 Benign prostatic hyperplasia without lower urinary tract symptoms; I10 Essential (primary) hypertension; R31.9 Hematuria, unspecified; D64.9 Anemia, unspecified; N39.0 Urinary tract infection, site not specified; B96.5 Pseudomonas (aeruginosa) (mallei) (pseudomallei) as the cause of diseases classified elsewhere; K21.9 Gastro-esophageal reflux disease without esophagitis
CPT/HCPCS: 36415; 71045-TC-FY; 71250-TC; 74018-TC-FY; 74177-TC; 76000-TC-FY; 76775-TC; 80053; 81003; 82962; 83605; 83735; 84100; 84484; 85025; 85610; 85730; 87040; 87077; 87086; 87186; 93005; 93010; 94760; 97161-GP; 99285-25; C9803; J0131; J3243; Q9967; U0003; U0005